=== PATIENT | male | born 1940 | race Caucasian/White ===

== ENCOUNTER 2018-05-20 11:01 | Emergency (ER) | payer MEDICARE ==
[2018-05-20 11:53] LABS: #Eosinphils 0.1 thou/uL (0.0-0.7); #Lymphocytes 1.3 thou/uL (1.20-3.40); #Monocytes 0.8 thou/uL (0.11-0.59); #Neutrophils 5.9 thou/uL (1.40-6.50); %Basophils 0.3 % (0.0-1.0); %Eosinophils 0.9 % (0.0-10.0); %Neutrophils 72.8 % (42.0-75.0); Hemoglobin 14.2 g/dL (14.0-18.0); Mean Corpuscular HGB CONC 32.5 g/dL (32.0-36.0); Mean Corpuscular Hemoglobin 29.6 pg (27.0-31.0); Mean Platelet Volume 9.6 fL (7.4-10.4); Platelet Count 180 thou/uL (130-400); RBC Distribution Width 12.3 % (11.5-14.5); Red Blood Cell (RBC) Count 4.79 mill/uL (4.70-6.10); White Blood Cell (WBC) Count 8.2 thou/uL (4.8-10.8)
[2018-05-20 12:26] LABS: ALT (SGPT) 14 U/L (8-55); AST (SGOT) 17 U/L (5-34); Albumin 4.1 g/dL (3.4-4.8); Alkaline Phosphatase 100 U/L (40-150); Anion Gap 13 mmol/L (10-20); BUN (Urea Nitrogen) 34 mg/dL (8.4-25.7); Bilirubin, Total 0.4 mg/dL (0.2-1.2); CK (CPK) 62 U/L (30-200); Calc. Creatinine Clearance 0 mL/min (70-130); Calcium 9.1 mg/dL (7.8-10.44); Carbon Dioxide 27 mmol/L (23-31); Chloride 105 mmol/L (98-107); Estimated GFR-MDRD 30; Globulin 2.9 g/dL (2.4-3.5); Glucose 330 mg/dL (83-110); Lipase 18 U/L (8-78); Potassium 3.9 mmol/L (3.5-5.1); Sodium 141 mmol/L (136-145)
--- NOTE | 2018-05-20 12:27 | CT ---
CT BRAIN WITHOUT CONTRAST: Date: 05/20/18 HISTORY: Falls, weakness. FINDINGS: There are changes of cortical atrophy and chronic small vessel ischemic disease. The ventricular size is appropriate and the basilar cisterns are patent. No evidence of acute infarct, hemorrhage, midlin e shift, or abnormal extra-axial fluid collections are seen. The bony calvarium is intact. The visual ized paranasal sinuses and mastoid air cells are well aerated. IMPRESSION: No CT evidence of acute intracranial process. POS: [facility]
--- NOTE | 2018-05-20 13:28 | RAD ---
PORTABLE CHEST: HISTORY: Dyspnea. COMPARISON: 11/08/2013 FINDINGS: Heart size is within normal limits. There are postop sternotomy changes. An internal defibrillator device is present. The lungs show some more chronic change. No signs of overt failure. IMPRESSION: No acute findings. POS: [facility]
[2018-05-20 14:21] LABS: Bilirubin Small (Negative); Blood, Urine Negative (Negative); Clarity CLEAR (Clear); Glucose, Urine (Dipstick) 500 mg/dL (Negative); Leukocyte Negative (Negative); Nitrite Negative (Negative); Protein, Urine (Dipstick) Negative (Neg-Trace); Specific Gravity, Urine 1.024 (1.002-1.036); Urobilinogen 0.2 mg/dL (0.2-1.0); pH, Urine 5.5 (5.0-9.0)
[2018-05-20 14:55] LABS: Bacteria/HPF None Seen HPF (None Seen); Hyaline Casts/LPF NONE SEEN LPF (0-3 Hyaline); RBC/HPF None Seen HPF (0-3); Squamous Epithelial 0-3 HPF (0-3); WBC/HPF 0-3 HPF (0-3)
== END 2018-05-20 13:52 | disposition home or self-care (01) ==
LOC: ERS 11:01
DX: R63.5 Abnormal weight gain (principal); N40.0 Benign prostatic hyperplasia without lower urinary tract symptoms; J44.9 Chronic obstructive pulmonary disease, unspecified; I25.2 Old myocardial infarction; E11.9 Type 2 diabetes mellitus without complications; I11.0 Hypertensive heart disease with heart failure; I50.9 Heart failure, unspecified; F32.9 Major depressive disorder, single episode, unspecified; Z87.891 Personal history of nicotine dependence; Z79.899 Other long term (current) drug therapy; Z79.84 Long term (current) use of oral hypoglycemic drugs; Z79.82 Long term (current) use of aspirin
CPT/HCPCS: 36415; 70450; 71045; 80053; 81001; 82550; 83690; 83880; 84484; 85025; 93005

== ENCOUNTER 2018-12-31 09:28 | Outpatient (CLI) | payer MEDICARE ==
--- NOTE | 2018-12-31 09:50 | RAD ---
EXAM: PA and lateral chest: INDICATIONS: Heart failure COMPARISON: 05/20/2018 FINDINGS: Lung santiago appear clear of infiltrate. No evidence of vascular congestion. Heart size with in normal range. Postop sternotomy change. AICD leads unchanged. Mild interstitial prominence in the lower lobes appears chronic. Osseous structures show degenerative spine change and degenerative c hange at both shoulders. IMPRESSION: No acute finding or significant interval change.
== END 2018-12-31 09:29 | disposition home or self-care (01) ==
LOC: RAD 09:28
PROVIDERS: ATTEND Nurse Practitioner Family
DX: I50.22 Chronic systolic (congestive) heart failure (principal)
CPT/HCPCS: 36415; 71046; 80048; 83880

== ENCOUNTER 2020-03-25 22:16 | Inpatient (IN) | payer MEDICARE ==
[2020-03-26] MEDS ORDERED: Gabapentin 300 MG CAP PO SCH (03:00)
[2020-03-26 03:33] LABS: #Lymphocytes 1.6 thou/uL (1.20-3.40); #Monocytes 1.4 thou/uL (0.11-0.59); #Neutrophils 11.9 thou/uL (1.40-6.50); %Basophils 0.1 % (0.0-1.0); %Eosinophils 0.2 % (0.0-10.0); %Lymphocytes 10.9 % (21.0-51.0); %Monocytes 9.4 % (0.0-10.0); %Neutrophils 79.3 % (42.0-75.0); Hemoglobin 10.9 g/dL (14.0-18.0); Mean Corpuscular HGB CONC 33.6 g/dL (32.0-36.0); Mean Corpuscular Hemoglobin 29.4 pg (27.0-31.0); Mean Corpuscular Volume 87.6 fL (78.0-98.0); Mean Platelet Volume 9.1 fL (7.4-10.4); Platelet Count 228 thou/uL (130-400); RBC Distribution Width 13.3 % (11.5-14.5); Red Blood Cell (RBC) Count 3.72 mill/uL (4.70-6.10); White Blood Cell (WBC) Count 15.1 thou/uL (4.8-10.8)
[2020-03-26 03:50] LABS: ALT (SGPT) 7 U/L (8-55); AST (SGOT) 15 U/L (5-34); Albumin 3.6 g/dL (3.4-4.8); Alkaline Phosphatase 96 U/L (40-110); Anion Gap 17 mmol/L (10-20); BUN (Urea Nitrogen) 34 mg/dL (8.4-25.7); Bilirubin, Total 0.4 mg/dL (0.2-1.2); Calc. Creatinine Clearance 0 mL/min (70-130); Calcium 8.4 mg/dL (7.8-10.44); Carbon Dioxide 23 mmol/L (23-31); Chloride 106 mmol/L (98-107); Globulin 2.7 g/dL (2.4-3.5); Glucose 157 mg/dL (83-110); Potassium 3.7 mmol/L (3.5-5.1); Protein, Total 6.3 g/dL (5.8-8.1); Sodium 142 mmol/L (136-145)
[2020-03-26] MEDS ORDERED: Ondansetron PF 4 MG/2 ML Vial IVP PRN (10:30)
[2020-03-26] MEDS ORDERED: Acetaminophen 500 MG TAB ONE (12:26)
[2020-03-26] MEDS ORDERED: Acetaminophen 325 MG TAB ONE (12:26)
--- NOTE | 2020-03-26 13:02 | PDOC.HHP ---
Hospitalist HPI - History of Present Illness CHF exacerbation, new found lung mass, PNA that didn't improve History of Present Illness: Mr. Hardy is an 79 year old man that was transferred from [facility] to [facility] ER for CHF exacerbation, pneumonia, and a new right sided pulmonary mass. He was transferred to [facility] because his meter setter - Dr. Brewster - is here. He has a past medical history of hypertension, diabetes mellitus type 2, coronary artery disease, hyperlipidemia, ulcerative colitis, CHF, and CABG x 3. He presented due to worsening dyspnea over the past few days. He requires 3 L home oxygen via nasal cannula for COPD. CT scan at [facility] showed a large right hilar mass measuring 4.1 x 4.2 cm that extends into the right sided superior mediastinum to a soft tissue mass measuring 3.6x4.5 cm. He has a smoking history of 150 pack years but quit 20 years ago and denies any family history of lung or colorectal cancer. He also denies any current alcohol use but was a heavy drinker in the past. He reports weight loss over the past several months and has had a decreased appetite. He was diagnosed with pneumonia one month ago and states that it never improved. No hemoptysis. no family history of lung or colon cancer ED Course: Mr. Hardy had a CT chest at [facility] showing a right hilar mass (4.1x4.2) extending into the right superior mediastium (3.6x4.5). He was also given gentle IV hydration, IV antibiotics, and nitroglyecerin paste at [facility]. [facility] ER ordered BNP, EKG, CBC, CMP, and Troponins. He was also given Gabapentin and st arted on his home oxygen level of 3 L cannula. He is currently comfortable at that oxygen level with O2 sat >95%. Disposition: telemetry Hospitalist ROS - Review of Systems Constitutional: reports: weakness. denies: fever Respiratory: reports: cough, shortness of breath. denies: hemoptysis, pleuritic pain, wheezing Cardiovascular: denies: chest pain, palpitations Gastrointestinal: denies: nausea, vomiting, abdominal pain, diarrhea, constipation Genitourinary: denies: dysuria Hospitalist History - Past Medical History Source: patient, family Cardiac: reports: CAD, CHF, HTN, ND, Hyperlipidemia Pulmonary: reports: congestive heart failure, COPD, emphysema, heart attack, high cholesterol, hypertension, pneumonia Gastrointestinal: reports: Irritable bowel disease Heme/Onc: reports: no pertinent history Psych: reports: Depression Musculoskeletal: reports: Osteoarthritis Endocrine: reports: Diabetes - Past Surgical History Past Surgical History: reports: CABG, Total Knee Replacement (left knee), Other (Back surgery) Other Surgical History: Pacemaker/ defibrilator placement - Family History Family History: reports: cancer, cardiac disorder - Social History Smoking Status: Former smoker (quit 20 years ago) Tobacco Type: cigarettes Alcohol: reports: None (quit 20 years ago) Living Situation: With Family Activity level: independent ambulation Other Social History: requires O2 at home - Exam General Appearance: NAD, awake alert Eye: PERRL, anicteric sclera ENT: normocephalic atraumatic Neck: supple Heart: RRR Respiratory: CTAB Gastrointestinal: soft, non-tender, non-distended, normal bowel sounds Psychiatric: normal affect, A&O x 3 Hospitalist Results - Labs Result Diagrams: 03/26/20 03:20 03/26/20 03:20 Lab results: WBC 15.1 thou/uL (4.8-10.8) H 03/26/20 03:20 Hgb 10.9 g/dL (14.0-18.0) L 03/26/20 03:20 Hct 32.6 % (42.0-52.0) L 03/26/20 03:20 MCV 87.6 fL (78.0-98.0) 03/26/20 03:20 Plt Count 228 thou/uL (130-400) 03/26/20 03:20 Neutrophils % 79.3 % (42.0-75.0) H 03/26/20 03:20 Sodium 142 mmol/L (136-145) 03/26/20 03:20 Potassium 3.7 mmol/L (3.5-5.1) 03/26/20 03:20 Chloride 106 mmol/L (98-107) 03/26/20 03:20 Carbon Dioxide 23 mmol/L (23-31) 03/26/20 03:20 BUN 34 mg/dL (8.4-25.7) H 03/26/20 03:20 Creatinine 1.79 mg/dL (0.7-1.3) H 03/26/20 03:20 Glucose 157 mg/dL (83-110) H 03/26/20 03:20 Calcium 8.4 mg/dL (7.8-10.44) 03/26/20 03:20 Total Bilirubin 0.4 mg/dL (0.2-1.2) 03/26/20 03:20 AST 15 U/L (5-34) 03/26/20 03:20 ALT 7 U/L (8-55) L 03/26/20 03:20 Alkaline Phosphatase 96 U/L (40-110) 03/26/20 03:20 Troponin I 0.023 ng/mL (< 0.028) 03/26/20 03:20 B-Natriuretic Peptide 118.8 pg/mL (0-100) H 03/26/20 03:20 Serum Total Protein 6.3 g/dL (5.8-8.1) 03/26/20 03:20 Albumin 3.6 g/dL (3.4-4.8) 03/26/20 03:20 - EKG Interpretation EKG: Shows sinus rhythm with possible 1st degree AV block Hospitalist H&P A/P - Plan Plan: CHF exacerbation -That is post AICD implantation remotely - admit to telemetry - obtain echocardiogram - trend troponins - consulted cardiology -Follow-up daily BMP strict in and output and weight daily -IV diuresis as renal function allows Monitor kidney disease stage III -Caution with IV diuresis -expect creatinine to trend up. Pulmonary mass, weight loss and the less p.o. intake -She has a remote history of tobacco abuse and he quit smoking 20 years ago -Right hilar mediastinal mass - consulted pulmonology DM2 -Hold glipizide, his creatinine around 1.7. Initiated sliding scale protocol along with his NPH home regimen. Diabetic neuropathy - Gabapentin PRN for neuropathic pain COPD - keep on 3 L nasal cannula and adjust as needed -Bronchodilators as needed Community after pneumonia -COVID test pending -Started him on ceftriaxone and Zithromax. -Mucinex as needed. -
[2020-03-26] MEDS ORDERED: Dextrose 50% Abboject 50 ML SYRINGE SLOW IVP PRN (13:47)
[2020-03-26] MEDS ORDERED: Furosemide 40 MG/4 ML VIAL ONE (16:52)
[2020-03-26] MEDS ORDERED: cefTRIAXone\\ROCEPHIN 1 GM VIAL ONE (16:52)
[2020-03-26] MEDS ORDERED: Potassium Chloride 20 MEQ TAB ONE (16:52)
[2020-03-26] MEDS ORDERED: Aspirin Chewable 81 MG TAB ONE (16:52)
[2020-03-26] MEDS ORDERED: Azithromycin 250 MG TAB ONE (16:52)
[2020-03-26] MEDS: cefTRIAXone\\ROCEPHIN 1 GM in Sodium Chloride 0.9% 100 ML IVPB SCH (17:00)
[2020-03-26] MEDS: Aspirin 81 mg Enteric Coated Tablet PO SCH (17:00)
[2020-03-26] MEDS: Potassium Chloride 10 MEQ TAB PO SCH (17:00)
[2020-03-26] MEDS: Azithromycin 250 MG TAB PO SCH (17:00)
[2020-03-26] MEDS: Furosemide 20 MG/2 ML VIAL SLOW IVP SCH (17:00)
[2020-03-26] MEDS: rOPINIRole HCl 0.25 MG TAB PO SCH (17:20)
[2020-03-26] MEDS: Tamsulosin HCl 0.4 MG CAP PO SCH (17:20)
[2020-03-26] MEDS: Dicyclomine 10 MG CAP PO SCH ×2 (17:20→22:26)
[2020-03-26] MEDS: Gabapentin 300 MG CAP PO SCH (17:22)
[2020-03-26] MEDS: guaiFENesin ER 600 MG TAB PO SCH (17:22)
[2020-03-26] MEDS: Rosuvastatin 20 MG TAB PO SCH (17:24)
[2020-03-26] MEDS: NPH, Human Insulin Isophane 300 UNIT/3 ML VIAL SC SCH (22:26)
[2020-03-26] MEDS: Mometasone 200 MCG/Formoterol 5 MCG 120 PUFF INHALER INH SCH (23:37)
[2020-03-27] MEDS: Melatonin 3 MG TAB PO PRN ×2 (00:52→22:53)
[2020-03-27] MEDS: traMADol HCl 50 MG TAB PO PRN ×3 (00:52→22:53)
[2020-03-27 01:31] VITALS: BMI 25.8
[2020-03-27 04:02] LABS: #Eosinphils 0.3 thou/uL (0.0-0.7); #Lymphocytes 1.7 thou/uL (1.20-3.40); #Monocytes 0.9 thou/uL (0.11-0.59); #Neutrophils 5.4 thou/uL (1.40-6.50); %Basophils 0.3 % (0.0-1.0); %Eosinophils 3.1 % (0.0-10.0); %Monocytes 10.8 % (0.0-10.0); %Neutrophils 64.9 % (42.0-75.0); Hemoglobin 10.9 g/dL (14.0-18.0); Mean Corpuscular Hemoglobin 29.1 pg (27.0-31.0); Mean Corpuscular Volume 88.1 fL (78.0-98.0); Mean Platelet Volume 9.2 fL (7.4-10.4); Platelet Count 214 thou/uL (130-400); RBC Distribution Width 13.2 % (11.5-14.5); Red Blood Cell (RBC) Count 3.75 mill/uL (4.70-6.10); White Blood Cell (WBC) Count 8.3 thou/uL (4.8-10.8)
[2020-03-27 04:24] LABS: Band 1 % (5-11); Eosinophils 5 % (0-10); Hemoglobin 10.7 g/dL (14.0-18.0); Lymphocytes 26 % (21-51); MDiff Complete? YES; Mean Corpuscular HGB CONC 33.1 g/dL (32.0-36.0); Mean Corpuscular Hemoglobin 29.1 pg (27.0-31.0); Mean Corpuscular Volume 87.8 fL (78.0-98.0); Mean Platelet Volume 9.5 fL (7.4-10.4); Monocytes 8 % (0-10); Neutrophil 60 % (42-75); Platelet Count 218 thou/uL (130-400); RBC Distribution Width 13.3 % (11.5-14.5); Red Blood Cell (RBC) Count 3.68 mill/uL (4.70-6.10); White Blood Cell (WBC) Count 8.3 thou/uL (4.8-10.8)
[2020-03-27 04:30] LABS: Anion Gap 16 mmol/L (10-20); BUN (Urea Nitrogen) 33 mg/dL (8.4-25.7); Calc. Creatinine Clearance 45 mL/min (70-130); Calcium 8.3 mg/dL (7.8-10.44); Carbon Dioxide 25 mmol/L (23-31); Chloride 106 mmol/L (98-107); Glucose 186 mg/dL (83-110); Potassium 3.5 mmol/L (3.5-5.1); Sodium 143 mmol/L (136-145)
[2020-03-27] MEDS: Furosemide 20 MG/2 ML VIAL SLOW IVP SCH (05:19)
[2020-03-27] MEDS: Acetaminophen 325 MG TAB PO PRN ×2 (05:27→12:46)
[2020-03-27] MEDS: Mometasone 200 MCG/Formoterol 5 MCG 120 PUFF INHALER INH SCH ×3 (07:06→23:28)
[2020-03-27] MEDS ORDERED: glipiZIDE 10 MG TAB PO SCH (07:30)
[2020-03-27] MEDS: Aspirin 81 mg Enteric Coated Tablet PO SCH (08:56)
[2020-03-27] MEDS: Potassium Chloride 10 MEQ TAB PO SCH (08:56)
[2020-03-27] MEDS: Gabapentin 300 MG CAP PO SCH ×2 (08:56→21:54)
[2020-03-27] MEDS: Azithromycin 250 MG TAB PO SCH (08:57)
[2020-03-27] MEDS: guaiFENesin ER 600 MG TAB PO SCH ×2 (08:57→21:55)
[2020-03-27] MEDS: Tamsulosin HCl 0.4 MG CAP PO SCH (08:58)
[2020-03-27] MEDS: rOPINIRole HCl 0.25 MG TAB PO SCH (08:58)
[2020-03-27] MEDS ORDERED: NPH, Human Insulin Isophane 300 UNIT/3 ML VIAL SC SCH (09:00)
[2020-03-27] MEDS ORDERED: Torsemide 20 MG TAB PO SCH (09:00)
[2020-03-27] MEDS: NPH, Human Insulin Isophane 300 UNIT/3 ML VIAL SC SCH ×2 (09:01→21:58)
[2020-03-27] MEDS: Dicyclomine 10 MG CAP PO SCH ×4 (09:01→21:54)
--- NOTE | 2020-03-27 10:52 | CON ---
DATE OF CONSULTATION: HISTORY OF PRESENT ILLNESS: The patient is an 79-year-old gentleman who presents for evaluation of dyspnea. The patient has a long history of coronary artery disease. In 2000, he underwent coronary artery bypass graft surgery. In 2010, he had a followup catheterization, which revealed to have a patent graft to the left circumflex and right coronary artery. He had mild disease in the left anterior descending artery. The patient has done well until he recently developed pneumonia. He reports that for the past few days, he has noticed marked increase in dyspnea. He denied any chest discomfort. PAST MEDICAL HISTORY: 1. Coronary artery disease. 2. Hypertension. 3. Dyslipidemia. 4. COPD. 5. History of a defibrillator. PAST SURGICAL HISTORY: Coronary bypass surgery, knee surgery, back surgery. ALLERGIES: NO KNOWN DRUG ALLERGIES. MEDICATIONS: 1. Pepcid 20 b.i.d. 2. Mobic 15 daily. 3. Trazodone 50 at bedtime. 4. Glipizide 10 q.a.m. 5. Potassium 10 daily. 6. Prilosec 40 daily. 7. Lasix. 8. Torsemide 40 daily. FAMILY HISTORY: Positive family history of coronary artery disease. PHYSICAL EXAMINATION: GENERAL: Well-developed gentleman, in no acute distress. VITAL SIGNS: Blood pressure 93/55. NECK: No jugular venous distention. LUNGS: Coarse breath sounds bilateral. HEART: Regular rate and rhythm. Normal S1 and S2. ABDOMEN: Mildly distended. EXTREMITIES: Show no edema. VASCULAR: Radial pulses 2+. LABORATORY DATA: Sodium 143, potassium 3.5, chloride 106, bicarb 25, BUN 33, creatinine 1.6, glucose 186. White blood cell count 8.8, hemoglobin 10.9, hematocrit 33.1, his platelets are 214. BNP level was 118. EKG revealed normal sinus rhythm, first-degree AV block, Q-waves suggestive of previous inferior infarct. IMPRESSION: 1. Dyspnea. 2. Lung mass. 3. History of coronary bypass surgery. 4. History of ischemic cardiomyopathy. 5. History of automatic implantable cardioverter-defibrillator placement. 6. Renal insufficiency. 7. Diabetes mellitus. This gentleman presents with dyspnea. His BNP is only mildly elevated. His dyspnea is most likely secondary to his COPD and lung mass. He will undergo pulmonary evaluation. From a cardiac standpoint, I would discontinue diuresing him with Lasix. We will follow this patient with you through his hospitalization. Job ID: [id number] MTDD
--- NOTE | 2020-03-27 11:39 | PDOC.HOSPP ---
- Subjective Encounter Date: 03/27/20 Encounter Time: 11:10 Subjective: Patient is resting. He says that he has no complaints "so far so good" - Objective Vital Signs & Weight: Vital Signs (12 hours) Temp Pulse Resp BP Pulse Ox 03/27/20 08:00 96.2 F L 83 17 93/55 L 95 03/27/20 07:07 80 16 97 03/27/20 07:06 80 16 97 03/27/20 05:06 90 L 03/27/20 04:59 97.7 F 64 18 120/64 95 03/26/20 23:42 18 96 03/26/20 23:37 16 95 Weight Weight 196 lb 1 oz I&O: 03/26/20 03/27/20 03/28/20 06:59 06:59 06:59 Intake Total 480 Output Total 1160 Balance -680 Result Diagrams: 03/27/20 03:28 03/27/20 03:28 Additional Labs: Accuchecks 03/27/20 03/27/20 03/26/20 11:16 00:16 21:38 POC Glucose 212 H 277 H 237 H 03/26/20 03/26/20 13:47 11:28 POC Glucose 173 H 120 H Hospitalist ROS - Medication Medications: Active Medications Generic Name Dose Route Start Last Admin Trade Name Tray PRN Reason Stop Dose Admin Acetaminophen 650 mg 03/26/20 10:30 03/27/20 05:27 Acetaminophen 325 Mg Tab PO 650 mg Q4H PRN Administration Headache/Fever/Mild Pain (1-3) Albuterol/Ipratropium 3 ml 03/27/20 07:00 03/27/20 07:07 Ipratropium/Albuterol Sulfate 3 Ml Neb NEB 3 ml [id number] RAMIRO Administration Aspirin 81 mg 03/26/20 16:30 03/27/20 08:56 Aspirin 81 Mg Enteric Coated Tablet PO 81 mg DAILY RAMIRO Administration Azithromycin 500 mg 03/26/20 16:30 03/27/20 08:57 Azithromycin 250 Mg Tab PO 03/29/20 09:01 500 mg DAILY RAMIRO Administration Dicyclomine HCl 10 mg 03/26/20 17:00 03/27/20 09:01 Dicyclomine 10 Mg Cap PO 10 mg QID RAMIRO Administration Gabapentin 300 mg 03/26/20 21:00 03/27/20 08:56 Gabapentin 300 Mg Cap PO 300 mg BID RAMIRO Administration Guaifenesin 600 mg 03/26/20 21:00 03/27/20 08:57 Guaifenesin Er 600 Mg Tab PO 600 mg Q12HR RAMIRO Administration Ceftriaxone Sodium 1 gm/ 100 mls @ 200 mls/hr 03/26/20 14:00 03/26/20 17:00 Sodium Chloride IVPB 100 mls Q24HR RAMIRO Administration Insulin Human NPH 30 unit 03/26/20 21:00 03/27/20 09:01 Nph, Human Insulin Isophane 300 Unit/3 Ml Vial SC 30 unit BID RAMIRO Administration Melatonin 3 mg 03/27/20 00:33 03/27/20 00:52 Melatonin 3 Mg Tab PO 3 mg HSPRN PRN Administration Insomnia Mometasone Furoate/Formoterol Fumar 1 puff 03/26/20 18:30 03/27/20 07:06 Mometasone 200 Mcg/Formoterol 5 Mcg 120 Puff Inhaler INH 1 puff BID-RT RAMIRO Administration Pantoprazole Sodium 40 mg 03/26/20 16:30 03/27/20 08:58 Pantoprazole 40 Mg Tab PO 40 mg DAILY RAMIRO Administration Potassium Chloride 10 meq 03/26/20 16:30 03/27/20 08:56 Potassium Chloride 10 Meq Tab PO 10 meq QAM-WM RAMIRO Administration Ropinirole HCl 0.25 mg 03/26/20 16:15 03/27/20 08:58 Ropinirole Hcl 0.25 Mg Tab PO 0.25 mg DAILY RAMIRO Administration Rosuvastatin Calcium 20 mg 03/26/20 21:00 03/26/20 17:24 Rosuvastatin 20 Mg Tab PO 20 mg HS RAMIRO Administration Sodium Chloride 10 ml 03/26/20 21:00 03/27/20 08:58 Flush - Normal Saline 10 Ml Syringe IVF 10 ml Q12HR RAMIRO Administration Tamsulosin HCl 0.4 mg 03/26/20 16:15 03/27/20 08:58 Tamsulosin Hcl 0.4 Mg Cap PO 0.4 mg DAILY RAMIRO Administration Tramadol HCl 50 mg 03/26/20 13:41 03/27/20 08:57 Tramadol Hcl 50 Mg Tab PO 50 mg Q6H PRN Administration Pain - Exam General Appearance: NAD, awake alert Eye: PERRL, anicteric sclera ENT: normocephalic atraumatic Neck: supple Heart: RRR, normal peripheral pulses Respiratory: CTAB, normal chest expansion Gastrointestinal: soft, normal bowel sounds Neurological: cranial nerve grossly intact, no focal deficits Psychiatric: A&O x 3 Hosp A/P - Plan Suspected acute on chronic systolic CHF exacerbation History of ischemic cardiomyopathy History of coronary artery disease status post CABG -status post AICD implantation remotely -IV diuretics has been discontinued- -echo is pending Chronic kidney disease stage III -Caution with IV diuresis -expect creatinine to trend up. Pulmonary mass, weight loss and the less p.o. intake COPD -he has a remote history of tobacco abuse and he quit smoking 20 years ago -Right hilar mediastinal mass - consulted pulmonology DM2 -Hold glipizide, his creatinine around 1.7. Initiated sliding scale protocol along with his NPH home regimen. Diabetic neuropathy - Gabapentin PRN for neuropathic pain COPD - keep on 3 L nasal cannula and adjust as needed -Bronchodilators as needed Community acquired pneumonia, was treated recently but patient still has complaints of cough and shortness of breath -COVID test pending---I do not see any result so I reordered it again. -he does not look like ongoing pneumonia [no fever or high white], CT chest done at [facility] shows right hilar mass; will get an chest x-ray today. -If no infiltrate with recent history of pneumonia, then will discontinue his antibiotics that started empirically. -Mucinex as needed.
--- NOTE | 2020-03-27 12:53 | PDOC.BPN ---
- Brief Progress Note Patient had a Covid test done 2 days prior to T[facility] and it was negative.
--- NOTE | 2020-03-27 13:26 | CON ---
DATE OF CONSULTATION: 03/27/2020 REASON FOR CONSULTATION: Right-sided mediastinal mass. HISTORY OF PRESENT ILLNESS: The patient is a pleasant 79-year-old male, who has been a patient of Dr. Baker in the past. He is from [place]. He says he was admitted at [facility] in [place] about a month ago with pneumonia. He has had some shortness of breath and desaturation. He did not feel better after that hospitalization. He subsequently re-presented there [address] of the chest demonstrating large right hilar mass extending up to right side of superior mediastinum. He does have a distant history of smoking approximately 150 pack-year, but quit 20 years ago. He endorses weight loss, but denies any hemoptysis. He is on O2 at home for COPD. PAST MEDICAL HISTORY: 1. Chronic obstructive pulmonary disease. 2. Congestive heart failure. 3. Coronary artery disease. 4. Hyperlipidemia. 5. Pneumonia. 6. Hypertension. 7. Irritable bowel disease. 8. Depression. 9. Osteoarthritis. 10. Diabetes mellitus. PAST SURGICAL HISTORY: 1. Coronary artery bypass grafting surgery. 2. Total knee replacement. 3. Back surgery. 4. Pacemaker/defibrillator placement. FAMILY MEDICAL HISTORY: Remarkable for cancer. SOCIAL HISTORY: Quit smoking 20 years ago. Does not consume alcohol. Lives at home with his . MEDICATIONS: Prior to admission; 1. Famotidine. 2. Mobic. 3. Gabapentin. 4. Torsemide. 5. Bentyl. 6. Trazodone. 7. Flomax. 8. Requip. 9. Potassium chloride. 10. Omeprazole. 11. NPH insulin. 12. Lovastatin. 13. Levocetirizine. 14. Guaifenesin. 15. Glipizide. 16. Diclofenac. 17. Carvedilol. 18. Symbicort. 19. Ecotrin. 20. DuoNeb. 21. Tramadol. Current inpatient medications reviewed, see chart. REVIEW OF SYSTEMS: See above history of present illness, otherwise review negative. PHYSICAL EXAMINATION: VITAL SIGNS: Temperature 97.8, pulse 99, respirations 20, O2 saturation 94% on 3 L, blood pressure 135/73. HEENT: Pupils are reactive. Sclerae are anicteric. Oropharynx is clear. NECK: He has a large palpable right supraclavicular lymph node medially. No thyromegaly. LUNGS: Clear to auscultation bilaterally. CARDIOVASCULAR: S1 and S2. Regular without audible murmur. ABDOMEN: Soft and nontender. No hepatosplenomegaly. EXTREMITIES: No clubbing, cyanosis, or edema. LABORATORY DATA: White blood cell count 8.3, hematocrit 33.1, and platelet count 214. Sodium 143, potassium 3.5, chloride 106, CO2 of 25, BUN 33, creatinine 1.6, glucose 186. His CT from [facility] was reviewed. It is available in the patient's chart. ASSESSMENT: 1. Large amount of lymphadenopathy in the right paratracheal and right hilar region. I am not sure whether or not this invades the lung properly or is extrinsic. Also, notable is a fairly profound right supraclavicular lymph node. 2. History of heart failure. 3. Hypoxemia. RECOMMENDATIONS: I will inform Dr. Baker of the patient's situation. I will let him decide how best to go about diagnosis. I think the choices are between doing a needle biopsy of the supraclavicular node, cervical mediastinal exploration, or bronchoscopy. He is at somewhat increased risk for bronchoscopy, given his underlying COPD and hypoxemia. Differential diagnosis in this case is lung cancer and lymphoma. I will keep him n.p.o. after midnight in case the procedure can be done tomorrow. Job ID: [id number]
[2020-03-27] MEDS: cefTRIAXone\\ROCEPHIN 1 GM in Sodium Chloride 0.9% 100 ML IVPB SCH (15:55)
[2020-03-27] MEDS: HumaLOG 300 UNITS/3 ML VIAL SC PRN (17:18)
--- NOTE | 2020-03-27 18:32 | RAD ---
Exam: Chest one view HISTORY:Evaluate for infiltrate Comparison: 05/20/2018 FINDINGS: Cardiac silhouette:Normal cardiac silhouette. Stable sternotomy wires and left-sided defibrillator. Aorta: Atherosclerotic and mildly elongated Pulmonary vessels: Normal Costophrenic angles: Small right pleural effusion LUNGS: Scattered interstitial opacities in the right lower lobe infiltrate, superimposed upon chronic change. Pneumothorax: None Osseous abnormalities: Degenerative change involving the right minimal joint space. IMPRESSION: 1. Scattered interstitial opacities in the right lower lobe possibly due to infiltrate
[2020-03-27] MEDS: Rosuvastatin 20 MG TAB PO SCH (21:54)
[2020-03-28 04:00] LABS: Anion Gap 12 mmol/L (10-20); BUN (Urea Nitrogen) 27 mg/dL (8.4-25.7); Calc. Creatinine Clearance 46 mL/min (70-130); Carbon Dioxide 25 mmol/L (23-31); Chloride 106 mmol/L (98-107); Potassium 3.3 mmol/L (3.5-5.1); Sodium 140 mmol/L (136-145)
[2020-03-28 04:01] LABS: Calcium 8.1 mg/dL (7.8-10.44); Glucose 121 mg/dL (83-110)
[2020-03-28] MEDS: Mometasone 200 MCG/Formoterol 5 MCG 120 PUFF INHALER INH SCH ×2 (07:06→19:42)
[2020-03-28] MEDS: Azithromycin 250 MG TAB PO SCH (09:38)
[2020-03-28] MEDS: Acetaminophen 325 MG TAB PO PRN ×2 (09:39→15:15)
[2020-03-28] MEDS: Gabapentin 300 MG CAP PO SCH ×2 (09:40→20:54)
[2020-03-28] MEDS: Dexamethasone 4 mg/ml Vial SLOW IVP SCH ×3 (09:42→20:54)
[2020-03-28] MEDS ORDERED: Fentanyl 100 MCG/2 ML VIAL ONE (10:09)
[2020-03-28] MEDS ORDERED: PROPOFOL 200 MG/20 ML VIAL ONE (10:43)
[2020-03-28] MEDS ORDERED: Ketorolac Tromethamine 30 MG/ML VIAL ONE (10:43)
[2020-03-28] MEDS ORDERED: Dexamethasone 20 MG/5 ML VIAL ONE (10:43)
[2020-03-28] MEDS ORDERED: Rocuronium Bromide 10 MG/ML (10ML VIAL) ONE (10:43)
[2020-03-28] MEDS ORDERED: Ondansetron PF 4 MG/2 ML Vial ONE (10:43)
[2020-03-28] MEDS ORDERED: PHENYLEPHRINE-NS 100 MCG/ML 10 ML SYRINGE ONE (10:43)
[2020-03-28] MEDS ORDERED: Glycopyrrolate 0.2 MG/ML 5 ML SYRINGE ONE (10:43)
[2020-03-28] MEDS ORDERED: Lidocaine 1% PF 5 ML VIAL ONE (10:43)
[2020-03-28] MEDS: Potassium Chloride 10 MEQ TAB PO SCH ×2 (11:00→15:10)
[2020-03-28] MEDS: Aspirin 81 mg Enteric Coated Tablet PO SCH ×2 (11:00→15:11)
[2020-03-28] MEDS: rOPINIRole HCl 0.25 MG TAB PO SCH ×2 (11:01→15:11)
[2020-03-28] MEDS: guaiFENesin ER 600 MG TAB PO SCH ×3 (11:01→20:54)
[2020-03-28] MEDS: Dicyclomine 10 MG CAP PO SCH ×4 (11:01→20:54)
[2020-03-28] MEDS: NPH, Human Insulin Isophane 300 UNIT/3 ML VIAL SC SCH ×2 (11:01→21:06)
[2020-03-28] MEDS: Tamsulosin HCl 0.4 MG CAP PO SCH ×2 (11:02→15:11)
[2020-03-28] MEDS: Torsemide 20 MG TAB PO SCH ×2 (11:02→15:11)
[2020-03-28] MEDS ORDERED: Ondansetron HCl/PF 4 MG/2 ML Vial IVP PRN (11:11)
--- NOTE | 2020-03-28 11:23 | PRG ---
DATE OF SERVICE: 03/28/[address] showed a large hilar suprahilar mass with extension into the mediastinum. OBJECTIVE: GENERAL/VITAL SINGS: He said he is less short of breath this morning, though his pulse is 91, sats are 94% on 3 L, and blood pressure . CHEST: Decreased breath sounds. No wheezing. CARDIAC: Normal S1 and S2. No gallop. ABDOMEN: No mass. LABORATORY DATA: Creatinine 1.58. X-ray was not very impressive. IMPRESSION: 1. Chronic obstructive pulmonary disease. 2. Right hilar mass, probably small cell lung cancer. 3. Azotemia. PLAN: We will try and get surgery to get a lymph node biopsy. Confirm the diagnosis. I have reviewed the CT of his chest from [place], more than likely most of his masses are extrinsic. We will follow. Start low-dose Decadron. Job ID: [id number]
[2020-03-28] MEDS ORDERED: EPINEPHrine 1 MG/ML AMP ONE (11:53)
[2020-03-28] MEDS ORDERED: Bupivacaine PF 0.5% 30 ML VIAL ONE (11:53)
[2020-03-28] MEDS: cefTRIAXone\\ROCEPHIN 1 GM in Sodium Chloride 0.9% 100 ML IVPB SCH (15:10)
--- NOTE | 2020-03-28 17:23 | PDOC.HOSPP ---
- Subjective Subjective: still dyspneic with exertion. O2 at baseline 3L - Objective Vital Signs & Weight: Vital Signs (12 hours) Temp Pulse Resp BP BP Pulse Ox 03/28/20 13:40 97.2 F L 92 17 125/65 95 03/28/20 09:00 96.4 F L 101 H 17 127/64 94 L 03/28/20 08:00 94 L 03/28/20 07:09 97 03/28/20 07:08 91 16 03/28/20 07:06 91 16 97 Weight Weight 192 lb 3.2 oz I&O: 03/27/20 03/28/20 03/29/20 06:59 06:59 06:59 Intake Total 1530 Output Total 1860 Balance -330 Result Diagrams: 03/27/20 03:28 03/28/20 03:21 Additional Labs: Accuchecks 03/28/20 03/28/20 03/27/20 16:29 06:10 19:47 POC Glucose 208 H 89 150 H 03/27/20 03/26/20 03/26/20 06:38 16:33 10:45 POC Glucose 108 H 165 H 30 L* Radiology Reviewed by me: Yes EKG Reviewed by me: Yes Hospitalist ROS - Medication Medications: Active Medications Generic Name Dose Route Start Last Admin Trade Name Freq PRN Reason Stop Dose Admin Acetaminophen 650 mg 03/26/20 10:30 03/28/20 15:15 Acetaminophen 325 Mg Tab PO 650 mg Q4H PRN Administration Headache/Fever/Mild Pain (1-3) Albuterol/Ipratropium 3 ml 03/27/20 07:00 03/28/20 13:05 Ipratropium/Albuterol Sulfate 3 Ml Neb NEB Not Given [id number] RAMIRO Aspirin 81 mg 03/26/20 16:30 03/28/20 15:11 Aspirin 81 Mg Enteric Coated Tablet PO 81 mg DAILY RAMIRO Administration Azithromycin 500 mg 03/26/20 16:30 03/28/20 09:38 Azithromycin 250 Mg Tab PO 03/29/20 09:01 500 mg DAILY RAMIRO Administration Dexamethasone 4 mg 03/28/20 09:00 03/28/20 15:10 Dexamethasone 4 Mg/Ml Vial SLOW IVP 03/30/20 09:01 4 mg TID RAMIRO Administration Dicyclomine HCl 10 mg 03/26/20 17:00 03/28/20 15:10 Dicyclomine 10 Mg Cap PO Not Given QID RAMIRO Gabapentin 300 mg 03/26/20 21:00 03/28/20 09:40 Gabapentin 300 Mg Cap PO 300 mg BID RAMIRO Administration Guaifenesin 600 mg 03/26/20 21:00 03/28/20 15:11 Guaifenesin Er 600 Mg Tab PO 600 mg Q12HR RAMIRO Administration Ceftriaxone Sodium 1 gm/ 100 mls @ 200 mls/hr 03/26/20 14:00 03/28/20 15:10 Sodium Chloride IVPB 100 mls Q24HR RAMIRO Administration Insulin Human Lispro 0 units 03/26/20 13:47 03/27/20 17:18 Humalog 300 Units/3 Ml Vial SC 6 unit .MODERATE SLIDING SC PRN Administration Moderate Correctional Scale Insulin Human NPH 30 unit 03/26/20 21:00 03/28/20 11:01 Nph, Human Insulin Isophane 300 Unit/3 Ml Vial SC Not Given BID RAMIRO Melatonin 3 mg 03/27/20 00:33 03/27/20 22:53 Melatonin 3 Mg Tab PO 3 mg HSPRN PRN Administration Insomnia Mometasone Furoate/Formoterol Fumar 1 puff 03/26/20 18:30 03/28/20 07:06 Mometasone 200 Mcg/Formoterol 5 Mcg 120 Puff Inhaler INH 1 puff BID-RT RAMIRO Administration Pantoprazole Sodium 40 mg 03/26/20 16:30 03/28/20 09:39 Pantoprazole 40 Mg Tab PO 40 mg DAILY RAMIRO Administration Potassium Chloride 10 meq 03/26/20 16:30 03/28/20 15:10 Potassium Chloride 10 Meq Tab PO 10 meq QAM-WM RAMIRO Administration Ropinirole HCl 0.25 mg 03/26/20 16:15 03/28/20 15:11 Ropinirole Hcl 0.25 Mg Tab PO 0.25 mg DAILY RAMIRO Administration Rosuvastatin Calcium 20 mg 03/26/20 21:00 03/27/20 21:54 Rosuvastatin 20 Mg Tab PO 20 mg HS RAMIRO Administration Sodium Chloride 10 ml 03/26/20 21:00 03/28/20 09:39 Flush - Normal Saline 10 Ml Syringe IVF 10 ml Q12HR RAMIRO Administration Tamsulosin HCl 0.4 mg 03/26/20 16:15 03/28/20 15:11 Tamsulosin Hcl 0.4 Mg Cap PO 0.4 mg DAILY RAMIRO Administration Torsemide 40 mg 03/28/20 09:00 03/28/20 15:11 Torsemide 20 Mg Tab PO 40 mg DAILY RAMIRO Administration Tramadol HCl 50 mg 03/26/20 13:41 03/27/20 22:53 Tramadol Hcl 50 Mg Tab PO 50 mg Q6H PRN Administration Pain - Exam General Appearance: NAD Eye: PERRL ENT: normocephalic atraumatic Neck: supple Heart: RRR Respiratory: CTAB, no wheezes Gastrointestinal: soft Extremities: no cyanosis Skin: normal turgor Neurological: cranial nerve grossly intact Musculoskeletal: normal tone Psychiatric: normal affect, normal behavior, A&O x 3 Hosp A/P - Plan Pulmonary mass with lymphadenopathy concerning for malignancy --s/p needle biopsy - Path pending --Pul started on Decadron. Appreciate input --cont empiric IV abx for presumed possible PNA Acute on chronic systolic CHF --euvolemic, cont home dose Torsemide History of coronary artery disease status post CABG --EF50-60%, cont home meds Chronic kidney disease stage III --Cr improved. avoid nephrotoxic agent . DM2 -Hold glipizide, his creatinine around 1.7. Initiated sliding scale protocol along with his NPH home regimen. Diabetic neuropathy - Gabapentin PRN for neuropathic pain COPD home O2 depending --keep on 3 L nasal cannula and adjust as needed --Bronchodilators as needed
--- NOTE | 2020-03-28 18:27 | OP ---
DATE OF PROCEDURE: 03/28/2020 PREOPERATIVE DIAGNOSIS: Lung mass with mediastinal adenopathy. POSTOPERATIVE DIAGNOSIS: Lung mass with mediastinal adenopathy. PROCEDURE PERFORMED: Cervical mediastinoscopy with biopsy of level 4R lymph node. ANESTHESIA: General endotracheal - Dr. Isis Daugherty. ESTIMATED BLOOD LOSS: Less than 50. SPECIMEN: Level 4R lymph node sent for routine pathologic exam along with flow cytometry. DESCRIPTION OF PROCEDURE: After operative consent was obtained, the patient was brought to the operating room, placed in supine position on the operating table. Appropriate central line and monitors were placed, and general endotracheal anesthesia was induced. Neck was extended. Skin incision was made two fingerbreadths above the sternocleidomastoid. Dissection through the platysma and down through the anterior tracheal fascia was obtained with electrocautery. Blunt dissection was used to enter the mediastinum. Trachea was followed inferiorly with mediastinal scope until we encountered a large hard lymph node. Multiple biopsies of lymph nodes were taken and sent for exam. These returned as adequate for exam with some frozen section revealing a leaning toward carcinoma. Hemostasis was ensured. Mediastinoscope was removed and platysma was closed with running 2-0 Vicryl suture. Skin was closed with a running 4-0 Vicryl subcuticular stitch and Dermabond was applied to skin. The patient tolerated the procedure well, was awakened, extubated, and transferred to recovery room in stable condition. Job ID: [id number]
--- NOTE | 2020-03-28 18:58 | CON ---
DATE OF CONSULTATION: HISTORY OF PRESENT ILLNESS: This is an 79-year-old gentleman recently hospitalized for pneumonia with development of a right-sided mass since admission. He has a remote history of coronary artery bypass grafting about 20 years ago by myself. He also has a history of diabetes mellitus, hypertension, ulcerative colitis, and COPD for which he wears oxygen at home. Review of his chest x-ray reveals a right hilar mass with multiple enlarged lymph nodes on CT scan extending along the right tracheal and pretracheal area. PHYSICAL EXAMINATION: He is alert and cooperative gentleman, in no distress. He has palpable adenopathy in the right supraclavicular area that is also pulsatile probably being related to adenopathy in the region of his subclavian artery. His chest has well healed incision. His lungs are clear. His heart has a soft systolic murmur. His extremities are without edema. PAST SURGICAL HISTORY: Includes CABG, left knee replacement, and back surgery as well as defibrillator placement. SOCIAL HISTORY: He has not smoked in 20 years. Accompanied by family member today. PLAN: At this time is either supraclavicular node biopsy on the right or for definitive diagnosis. Questions have been answered and informed consent obtained. Job ID: [id number]
[2020-03-28] MEDS: Rosuvastatin 20 MG TAB PO SCH (20:54)
[2020-03-28] MEDS: traMADol HCl 50 MG TAB PO PRN (20:55)
[2020-03-28] MEDS: HumaLOG 300 UNITS/3 ML VIAL SC PRN (20:57)
[2020-03-29 04:42] LABS: Anion Gap 16 mmol/L (10-20); BUN (Urea Nitrogen) 31 mg/dL (8.4-25.7); Calc. Creatinine Clearance 42 mL/min (70-130); Calcium 8.4 mg/dL (7.8-10.44); Carbon Dioxide 24 mmol/L (23-31); Chloride 104 mmol/L (98-107); Glucose 269 mg/dL (83-110); Potassium 4.1 mmol/L (3.5-5.1); Sodium 140 mmol/L (136-145)
[2020-03-29] MEDS: HumaLOG 300 UNITS/3 ML VIAL SC PRN ×3 (06:14→16:52)
[2020-03-29] MEDS: Mometasone 200 MCG/Formoterol 5 MCG 120 PUFF INHALER INH SCH ×2 (07:18→19:07)
[2020-03-29] MEDS: Azithromycin 250 MG TAB PO SCH (09:09)
[2020-03-29] MEDS: Torsemide 20 MG TAB PO SCH (09:10)
[2020-03-29] MEDS: Dexamethasone 4 mg/ml Vial SLOW IVP SCH ×3 (09:10→21:01)
[2020-03-29] MEDS: guaiFENesin ER 600 MG TAB PO SCH ×2 (09:10→20:58)
[2020-03-29] MEDS: Aspirin 81 mg Enteric Coated Tablet PO SCH (09:10)
[2020-03-29] MEDS: Potassium Chloride 10 MEQ TAB PO SCH (09:10)
[2020-03-29] MEDS: Gabapentin 300 MG CAP PO SCH ×2 (09:10→21:00)
[2020-03-29] MEDS: Dicyclomine 10 MG CAP PO SCH ×4 (09:11→21:11)
[2020-03-29] MEDS: NPH, Human Insulin Isophane 300 UNIT/3 ML VIAL SC SCH ×2 (09:11→21:01)
[2020-03-29] MEDS: Tamsulosin HCl 0.4 MG CAP PO SCH (09:11)
[2020-03-29] MEDS: rOPINIRole HCl 0.25 MG TAB PO SCH (09:11)
[2020-03-29] MEDS: Acetaminophen 325 MG TAB PO PRN (09:17)
--- NOTE | 2020-03-29 10:32 | PRG ---
DATE OF SERVICE: 03/29/2020 SUBJECTIVE: Raleigh Hardy this morning is awake, alert, responsive, short of breath on minimal exertion. OBJECTIVE: VITAL SIGNS: Temperature 98, pulse 82, saturations are 92 on 3 L, blood pressure 100/67. CHEST: No wheezing. No crackles. CARDIAC: Normal S1, normal S2. No gallops. ABDOMEN: No masses LABORATORY DATA: Creatinine is 1.71. ASSESSMENT: Chronic obstructive pulmonary disease, lung mass. PLAN: We are in the process of trying to get final path report. It looks like it is a lymphoma versus primary lung cancer. We are going to consult Oncology. Continue Decadron for another 24 hours. We will follow. Job ID: [id number]
--- NOTE | 2020-03-29 17:06 | PDOC.HOSPP ---
- Subjective Subjective: c/o sob with exertion. path pending - Objective Vital Signs & Weight: Vital Signs (12 hours) Temp Pulse Resp BP BP Pulse Ox 03/29/20 15:23 98.6 F 95 18 110/55 L 92 L 03/29/20 13:01 102 H 20 90 L 03/29/20 12:00 98.1 F 90 16 108/56 L 92 L 03/29/20 11:17 97.4 F L 92 124/59 L 92 L 03/29/20 07:27 92 L 03/29/20 07:24 98.6 F 82 17 106/67 92 L 03/29/20 07:21 92 L 03/29/20 07:20 92 16 92 L 03/29/20 07:18 88 16 92 L Weight Weight 195 lb 9.6 oz I&O: 03/28/20 03/29/20 03/30/20 06:59 06:59 06:59 Intake Total 1530 1260 720 Output Total 1860 1250 1200 Balance -330 10 -480 Result Diagrams: 03/27/20 03:28 03/29/20 04:02 Additional Labs: Accuchecks 03/29/20 03/29/20 03/29/20 16:39 11:16 06:12 POC Glucose 225 H 219 H 246 H 03/28/20 20:54 POC Glucose 378 H Radiology Reviewed by me: Yes EKG Reviewed by me: Yes Hospitalist ROS - Medication Medications: Active Medications Generic Name Dose Route Start Last Admin Trade Name Freq PRN Reason Stop Dose Admin Acetaminophen 650 mg 03/26/20 10:30 03/29/20 09:17 Acetaminophen 325 Mg Tab PO 650 mg Q4H PRN Administration Headache/Fever/Mild Pain (1-3) Albuterol/Ipratropium 3 ml 03/27/20 07:00 03/29/20 13:01 Ipratropium/Albuterol Sulfate 3 Ml Neb NEB 3 ml [id number] RAMIRO Administration Aspirin 81 mg 03/26/20 16:30 03/29/20 09:10 Aspirin 81 Mg Enteric Coated Tablet PO 81 mg DAILY RAMIRO Administration Dexamethasone 4 mg 03/28/20 09:00 03/29/20 15:17 Dexamethasone 4 Mg/Ml Vial SLOW IVP 03/30/20 09:01 4 mg TID RAMIRO Administration Dicyclomine HCl 10 mg 12/05/20 17:00 03/29/20 16:52 Dicyclomine 10 Mg Cap PO 10 mg QID RAMIRO Administration Gabapentin 300 mg 03/26/20 21:00 03/29/20 09:10 Gabapentin 300 Mg Cap PO 300 mg BID RAMIRO Administration Guaifenesin 600 mg 03/26/20 21:00 03/29/20 09:10 Guaifenesin Er 600 Mg Tab PO 600 mg Q12HR RAMIRO Administration Insulin Human Lispro 0 units 03/26/20 13:47 03/29/20 16:52 Humalog 300 Units/3 Ml Vial SC 4 unit .MODERATE SLIDING SC PRN Administration Moderate Correctional Scale Insulin Human NPH 30 unit 03/26/20 21:00 03/29/20 09:11 Nph, Human Insulin Isophane 300 Unit/3 Ml Vial SC 30 unit BID RAMIRO Administration Melatonin 3 mg 03/27/20 00:33 03/27/20 22:53 Melatonin 3 Mg Tab PO 3 mg HSPRN PRN Administration Insomnia Pantoprazole Sodium 40 mg 03/26/20 16:30 03/29/20 09:10 Pantoprazole 40 Mg Tab PO 40 mg DAILY RAMIRO Administration Potassium Chloride 10 meq 03/26/20 16:30 03/29/20 09:10 Potassium Chloride 10 Meq Tab PO 10 meq QAM-WM RAMIRO Administration Ropinirole HCl 0.25 mg 03/26/20 16:15 03/29/20 09:11 Ropinirole Hcl 0.25 Mg Tab PO 0.25 mg DAILY RAMIRO Administration Rosuvastatin Calcium 20 mg 03/26/20 21:00 03/28/20 20:54 Rosuvastatin 20 Mg Tab PO 20 mg HS RAMIRO Administration Sodium Chloride 10 ml 03/26/20 21:00 03/29/20 09:12 Flush - Normal Saline 10 Ml Syringe IVF 10 ml Q12HR RAMIRO Administration Tamsulosin HCl 0.4 mg 03/26/20 16:15 03/29/20 09:11 Tamsulosin Hcl 0.4 Mg Cap PO 0.4 mg DAILY RAMIRO Administration Torsemide 40 mg 03/28/20 09:00 03/29/20 09:10 Torsemide 20 Mg Tab PO 40 mg DAILY RAMIRO Administration Tramadol HCl 50 mg 03/26/20 13:41 03/28/20 20:55 Tramadol Hcl 50 Mg Tab PO 50 mg Q6H PRN Administration Pain - Exam General Appearance: NAD Eye: PERRL ENT: normocephalic atraumatic Neck: supple Heart: RRR Respiratory: CTAB, no wheezes Gastrointestinal: soft, non-tender Extremities: no cyanosis, no clubbing, no edema Skin: normal turgor Neurological: cranial nerve grossly intact Musculoskeletal: normal tone, normal strength Psychiatric: normal affect, normal behavior, A&O x 3 Hosp A/P - Plan Pulmonary mass with lymphadenopathy concerning for malignancy --s/p needle biopsy - Path pending --Pul started on Decadron. Appreciate input --cont empiric IV abx for presumed possible PNA --PT eval. Oncology has been consulted by pul Acute on chronic systolic CHF --euvolemic, cont home dose Torsemide History of coronary artery disease status post CABG --EF50-60%, cont home meds Chronic kidney disease stage III --Cr improved. avoid nephrotoxic agent . DM2 -Hold glipizide, his creatinine around 1.7. Initiated sliding scale protocol along with his NPH home regimen. Diabetic neuropathy - Gabapentin PRN for neuropathic pain COPD home O2 depending --keep on 3 L nasal cannula and adjust as needed --Bronchodilators as needed
[2020-03-29] MEDS: traMADol HCl 50 MG TAB PO PRN (20:58)
[2020-03-29] MEDS: Rosuvastatin 20 MG TAB PO SCH (20:58)
[2020-03-30 05:00] LABS: Anion Gap 15 mmol/L (10-20); BUN (Urea Nitrogen) 44 mg/dL (8.4-25.7); Calc. Creatinine Clearance 39 mL/min (70-130); Calcium 8.6 mg/dL (7.8-10.44); Carbon Dioxide 24 mmol/L (23-31); Chloride 103 mmol/L (98-107); Glucose 301 mg/dL (83-110); Potassium 4.3 mmol/L (3.5-5.1); Sodium 138 mmol/L (136-145)
[2020-03-30] MEDS: HumaLOG 300 UNITS/3 ML VIAL SC PRN ×2 (06:27→12:35)
--- NOTE | 2020-03-30 06:31 | CON ---
DATE OF CONSULTATION: REASON FOR CONSULT: Lung mass. HISTORY OF PRESENT ILLNESS: Mr. Hardy is a pleasant 79-year-old gentleman with past medical history of congestive heart failure, COPD, and recent pneumonia. He was transferred from [facility] to ours for right-sided pulmonary mass. He presented to their ER after worsening shortness of breath over the last several days. He denies any hemoptysis. A CT scan at [facility] showed a large right hilar mass measuring 4.1 x 4.2 cm that extended to the right-sided superior mediastinum. There were tracheal and paratracheal lymph nodes. He was seen by Pulmonary and Thoracic Surgery, and had a level 4R lymph node, cervical mediastinoscopy. Frozen section was leaning toward carcinoma versus lymphoma. The patient has a [id number] history of smoking, quit over 20 years ago. He denies any significant weight loss over the last several months. He has an ECOG of 3 and requires a walker and continuous O2. He admits to frequent headaches, but no recent falls. No blurred vision. He was diagnosed with pneumonia approximately a month ago, was given antibiotics with no significant improvement. He has been admitted and given steroids and antibiotics. PAST MEDICAL HISTORY: 1. Diabetes mellitus 2. 2. Hypertension. 3. Ulcerative colitis. 4. COPD. PAST SURGICAL HISTORY: 1. CABG. 2. Defibrillator placement. 3. Back surgery. ALLERGIES: NO KNOWN DRUG ALLERGIES. HOME MEDICATIONS: 1. Bentyl. 2. Coreg. 3. Diclofenac. 4. Ecotrin. 5. Flomax. 6. Gabapentin. 7. Glipizide. 8. Insulin. 9. Potassium. 10. Lovastatin. 11. Mobic. 12. Prilosec. 13. Requip. 14. Torsemide. 15. Tramadol. 16. Trazodone. FAMILY HISTORY: Sister from breast cancer. SOCIAL HISTORY: , lives with his spouse in a trailer in [place]. Again, remote [id number] history of smoking. No alcohol or illicit drug use. REVIEW OF SYSTEMS: A 12-point review of systems is negative except for noted in HPI. PHYSICAL EXAMINATION: VITAL SIGNS: Temperature is 97.4, pulse is 102, respiratory rate 20, blood pressure is 124/59. He is 90% on 3 L. GENERAL: Chronically ill-appearing male, in no acute distress. HEENT: Normocephalic, atraumatic. Pupils are equal and reactive to light. NECK: Supple. CV: Regular rate and rhythm. He has 2/6 murmur. LUNGS: Clear anterior. ABDOMEN: Soft and nontender. Bowel sounds are positive. EXTREMITIES: No clubbing or cyanosis. SKIN: No rash. NEUROLOGICAL: Nonfocal. LYMPH: He has a palpable right supraclavicular lymph node. PERTINENT LABS AND X-RAYS: Hemoglobin 10.9, hematocrit 33.1, platelets 214,000, 65% neutrophils, 21% lymphocytes. Sodium 140, potassium 4.1, chloride 104, CO2 is 24, BUN is 31, creatinine 1.71, calcium 8.4, bilirubin 0.4, AST is 15, ALT 7, and alkaline phosphatase is 96. Troponin is 0.023. BNP is 118. Serum total protein 6.3, albumin 3.6, globulin 2.7. ASSESSMENT: 1. Right hilar mass with mediastinal lymphadenopathy. 2. History of chronic obstructive pulmonary disease, oxygen dependency. 3. Remote history of smoking. DISCUSSION: The patient has had level 4 lymph node biopsy, path is currently pending. It appears to be a carcinoma based on frozen section. We will await final pathology for recommendations regarding treatment options. We would like to get an MRI of the brain. Unfortunately, the patient had a pacemaker that has been placed almost 20 years ago. He will need a PET scan in the outpatient setting. We will return with further recommendations regarding treatment options once we receive final pathology. The patient can go home, to follow up in our clinic to discuss diagnosis at that time. Thank you for the consult. Job ID: [id number]
[2020-03-30] MEDS: Mometasone 200 MCG/Formoterol 5 MCG 120 PUFF INHALER INH SCH ×2 (06:50→18:06)
[2020-03-30] MEDS: guaiFENesin ER 600 MG TAB PO SCH ×2 (09:29→21:17)
[2020-03-30] MEDS: Potassium Chloride 10 MEQ TAB PO SCH (09:29)
[2020-03-30] MEDS: Tamsulosin HCl 0.4 MG CAP PO SCH (09:29)
[2020-03-30] MEDS: Acetaminophen 325 MG TAB PO PRN (09:29)
[2020-03-30] MEDS: rOPINIRole HCl 0.25 MG TAB PO SCH (09:29)
[2020-03-30] MEDS: Gabapentin 300 MG CAP PO SCH ×2 (09:29→21:17)
[2020-03-30] MEDS: Dexamethasone 4 mg/ml Vial SLOW IVP SCH (09:30)
[2020-03-30] MEDS: Dicyclomine 10 MG CAP PO SCH ×4 (09:30→21:17)
[2020-03-30] MEDS: Aspirin 81 mg Enteric Coated Tablet PO SCH (09:31)
[2020-03-30] MEDS: NPH, Human Insulin Isophane 300 UNIT/3 ML VIAL SC SCH ×2 (09:31→21:23)
--- NOTE | 2020-03-30 11:47 | PRG ---
DATE OF SERVICE: 03/30/2020 SUBJECTIVE: This morning, he is doing better, less short of breath. We are still awaiting path and lymph node biopsy. OBJECTIVE: VITAL SIGNS: Temperature 97.6, pulse 109, respiratory rate 18, saturations 94% on 3 L, blood pressure 144/65. CHEST: No wheezing. No crackles. CARDIAC: Normal S1 and S2. No gallops. ABDOMEN: No mass. LABORATORY DATA: Creatinine 1.9. IMPRESSION: Chronic obstructive pulmonary disease, lung mass, status post CME biopsy. Await path. Continue Dulera neb treatment. Supportive care. Once Oncology has seen the patient, the patient can be discharged home any time. Job ID: [id number] MTDD
--- NOTE | 2020-03-30 13:18 | PRG ---
DATE OF SERVICE: 03/30/2020 SUBJECTIVE: Mr. Hardy is doing well. Awaiting final pathology report from the biopsy. He says he is still short of breath with any type of exertion. No chest pain. OBJECTIVE: VITAL SIGNS: Blood pressure 140/60, pulse 100. LUNGS: Clear. CARDIAC: Normal S1. Normal S2. ABDOMEN: Soft, nontender. ASSESSMENT: 1. Congestive heart failure, systolic and diastolic mixed, appears compensated by the BNP. 2. Lung mass, being evaluated. PLAN: 1. We will have them interrogate the defibrillator, check the OptiVol to see what his fluid status is. 2. Continue torsemide. Job ID: [id number]
--- NOTE | 2020-03-30 17:25 | PDOC.HOSPP ---
- Subjective Subjective: doing ok, states O2 sat drop when ambulate. Cr up. will hold his torsemide for now, i think he is euvolemic at this point - Objective Vital Signs & Weight: Vital Signs (12 hours) Temp Pulse Resp BP Pulse Ox 03/30/20 13:10 100 20 90 L 03/30/20 12:00 97.0 F L 100 17 140/60 95 03/30/20 08:00 96.9 F L 103 H 18 141/65 H 94 L 03/30/20 06:52 86 16 95 03/30/20 06:50 86 16 95 Weight Weight 197 lb I&O: 03/29/20 03/30/20 03/31/20 06:59 06:59 06:59 Intake Total 1260 1120 Output Total 1250 2400 Balance 10 -1280 Result Diagrams: 03/27/20 03:28 03/30/20 04:09 Additional Labs: Accuchecks 03/30/20 03/30/20 03/29/20 11:03 05:54 20:38 POC Glucose 200 H 233 H 382 H 03/29/20 16:39 POC Glucose 225 H Hospitalist ROS - Medication Medications: Active Medications Generic Name Dose Route Start Last Admin Trade Name Freq PRN Reason Stop Dose Admin Acetaminophen 650 mg 03/26/20 10:30 03/30/20 09:29 Acetaminophen 325 Mg Tab PO 650 mg Q4H PRN Administration Headache/Fever/Mild Pain (1-3) Albuterol/Ipratropium 3 ml 03/27/20 07:00 03/30/20 13:10 Ipratropium/Albuterol Sulfate 3 Ml Neb NEB 3 ml [id number] RAMIRO Administration Aspirin 81 mg 03/26/20 16:30 03/30/20 09:31 Aspirin 81 Mg Enteric Coated Tablet PO 81 mg DAILY RAMIRO Administration Dicyclomine HCl 10 mg 03/26/20 17:00 03/30/20 12:35 Dicyclomine 10 Mg Cap PO 10 mg QID RAMIRO Administration Gabapentin 300 mg 03/26/20 21:00 12 09:29 Gabapentin 300 Mg Cap PO 300 mg BID RAMIRO Administration Guaifenesin 600 mg 03/26/20 21:00 03/30/20 09:29 Guaifenesin Er 600 Mg Tab PO 600 mg Q12HR RAMIRO Administration Insulin Human Lispro 0 units 03/26/20 13:47 03/30/20 12:35 Humalog 300 Units/3 Ml Vial SC 2 unit .MODERATE SLIDING SC PRN Administration Moderate Correctional Scale Insulin Human NPH 30 unit 03/26/20 21:00 03/30/20 09:31 Nph, Human Insulin Isophane 300 Unit/3 Ml Vial SC 30 unit BID RAMIRO Administration Melatonin 3 mg 03/27/20 00:33 03/27/20 22:53 Melatonin 3 Mg Tab PO 3 mg HSPRN PRN Administration Insomnia Mometasone Furoate/Formoterol Fumar 2 puff 03/29/20 18:30 03/30/20 06:50 Mometasone 200 Mcg/Formoterol 5 Mcg 120 Puff Inhaler INH 2 puff BID-RT RAMIRO Administration Pantoprazole Sodium 40 mg 03/26/20 16:30 03/30/20 09:28 Pantoprazole 40 Mg Tab PO 40 mg DAILY RAMIRO Administration Potassium Chloride 10 meq 03/26/20 16:30 03/30/20 09:29 Potassium Chloride 10 Meq Tab PO 10 meq QAM-WM RAMIRO Administration Ropinirole HCl 0.25 mg 03/26/20 16:15 03/30/20 09:29 Ropinirole Hcl 0.25 Mg Tab PO 0.25 mg DAILY RAMIRO Administration Rosuvastatin Calcium 20 mg 03/26/20 21:00 03/29/20 20:58 Rosuvastatin 20 Mg Tab PO 20 mg HS RAMIRO Administration Sodium Chloride 10 ml 03/26/20 21:00 03/30/20 09:31 Flush - Normal Saline 10 Ml Syringe IVF 10 ml Q12HR RAMIRO Administration Tamsulosin HCl 0.4 mg 03/26/20 16:15 03/30/20 09:29 Tamsulosin Hcl 0.4 Mg Cap PO 0.4 mg DAILY RAMIRO Administration Torsemide 40 mg 03/28/20 09:00 03/29/20 09:10 Torsemide 20 Mg Tab PO 40 mg DAILY RAMIRO Administration Tramadol HCl 50 mg 03/26/20 13:41 03/29/20 20:58 Tramadol Hcl 50 Mg Tab PO 50 mg Q6H PRN Administration Pain - Exam General Appearance: NAD Eye: PERRL ENT: normocephalic atraumatic Neck: supple Heart: RRR Respiratory: CTAB Gastrointestinal: soft, non-tender Extremities: no cyanosis Skin: normal turgor Neurological: cranial nerve grossly intact Musculoskeletal: normal tone Hosp A/P - Plan Pulmonary mass with lymphadenopathy concerning for malignancy --s/p needle biopsy - Path pending --Decadron was dc'd by pul --cont empiric IV abx for presumed possible PNA --cont supportive cares. Pending treatment option Acute on chronic systolic CHF --euvolemic, Torsemide, cr on hold d/t incr cr --follow BMP History of coronary artery disease status post CABG --EF50-60%, cont home meds Chronic kidney disease stage III --Cr improved. avoid nephrotoxic agent . DM2 -Hold glipizide, his creatinine around 1.7. Initiated sliding scale protocol along with his NPH home regimen. Diabetic neuropathy - Gabapentin PRN for neuropathic pain COPD home O2 depending 3L --keep on 3 L nasal cannula and adjust as needed --Bronchodilators as needed
[2020-03-30] MEDS: Rosuvastatin 20 MG TAB PO SCH (21:17)
[2020-03-30] MEDS: Senokot S 8.6-50 MG TAB PO PRN (21:18)
[2020-03-30] MEDS: traMADol HCl 50 MG TAB PO PRN (21:29)
[2020-03-31 05:24] LABS: Anion Gap 12 mmol/L (10-20); BUN (Urea Nitrogen) 40 mg/dL (8.4-25.7); Calc. Creatinine Clearance 49 mL/min (70-130); Calcium 8.4 mg/dL (7.8-10.44); Carbon Dioxide 26 mmol/L (23-31); Chloride 108 mmol/L (98-107); Glucose 146 mg/dL (83-110); Magnesium 2.4 mg/dL (1.6-2.6); Potassium 3.8 mmol/L (3.5-5.1); Sodium 142 mmol/L (136-145)
[2020-03-31] MEDS: Mometasone 200 MCG/Formoterol 5 MCG 120 PUFF INHALER INH SCH ×2 (07:46→17:33)
[2020-03-31] MEDS: Potassium Chloride 10 MEQ TAB PO SCH (08:45)
[2020-03-31] MEDS: Aspirin 81 mg Enteric Coated Tablet PO SCH (08:46)
[2020-03-31] MEDS: Dicyclomine 10 MG CAP PO SCH ×4 (08:47→21:49)
[2020-03-31] MEDS: Gabapentin 300 MG CAP PO SCH ×2 (08:47→21:48)
[2020-03-31] MEDS: guaiFENesin ER 600 MG TAB PO SCH ×2 (08:48→21:48)
[2020-03-31] MEDS: rOPINIRole HCl 0.25 MG TAB PO SCH (08:48)
[2020-03-31] MEDS: Tamsulosin HCl 0.4 MG CAP PO SCH (08:49)
[2020-03-31] MEDS: Senokot S 8.6-50 MG TAB PO PRN (08:49)
[2020-03-31] MEDS: Torsemide 20 MG TAB PO SCH (08:49)
[2020-03-31] MEDS: NPH, Human Insulin Isophane 300 UNIT/3 ML VIAL SC SCH ×2 (08:51→21:48)
--- NOTE | 2020-03-31 09:36 | PRG ---
DATE OF SERVICE: 03/31/2020 OBJECTIVE: VITAL SIGNS: This morning, his temperature 98, pulse 80, respirations 18, sats 95% on 3 L, and blood pressure 153/77. GENERAL: He denies any wheezing or coughing. CHEST: Decreased breath sounds. No wheezing. CARDIAC: Normal S1, S2. No gallops. ABDOMEN: No masses. LABORATORY DATA: Creatinine is 1.5. 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 2 CHF PLAN: Disposition as per Oncology,, discharge home any time. Follow up with Oncology on outpatient basis. Job ID: [id number] [facility]
--- NOTE | 2020-03-31 10:15 | PRG ---
DATE OF SERVICE: SUBJECTIVE: This morning, he is doing well, awake, alert, responsive. OBJECTIVE: VITAL SIGNS: Temperature 98, pulse 88, respiratory rate 18, sats 95% on 3 L, blood pressure 153/77. CHEST: No wheezing, no crackles. CARDIAC: Normal S1, S2. ABDOMEN: No masses. LABORATORY DATA: Creatinine 1.5. ASSESSMENT: Small cell metastatic carcinoma, chronic obstructive pulmonary disease, congestive heart failure. PLAN: Disposition as per Oncology. Continue neb treatments. We will follow. Job ID: [id number]
--- NOTE | 2020-03-31 10:15 | PDOC.MOPN ---
Interval History: Pt feeling ok today, SOB improved but not back to his baseline, though he is on his home level of O2, 3L. I discussed his dx of Small Cell lung cancer with him, and spoke to his on the phone. - Vital Signs Vital Signs: Vital Signs (12 hours) Temp Pulse Resp BP BP Pulse Ox 03/31/20 07:47 98.1 F 88 18 153/77 H 95 03/31/20 07:43 90 14 95 03/31/20 04:00 97.7 F 89 19 131/69 94 L Weight Weight 192 lb 8 oz - Physical Exam General: Alert, Oriented x3, Cooperative Lungs: Normal air movement, Other (on nasal cannula, not in respiratory distress) Abdomen: Soft Neurological: Cranial nerves 3-12 NL Psych/Mental Status: Mood NL - Labs Result Diagrams: 03/27/20 03:28 03/31/20 04:18 Lab results: Laboratory Results - last 24 hr 03/31/20 05:48: POC Glucose 140 H 03/31/20 04:18: Sodium 142, Potassium 3.8, Chloride 108 H, Carbon Dioxide 26, Anion Gap 12, BUN 40 H, Creatinine 1.51 H, Estimated GFR (MDRD) 45, Glucose 146 H, Calcium 8.4, Magnesium 2.4 03/30/20 20:51: POC Glucose 178 H 03/30/20 17:01: POC Glucose 149 H 03/30/20 11:03: POC Glucose 200 H 03/28/20 12:15: Flow Cytometry Interp - Pathology Pathology: Small Cell Lung Cancer A/P - Problem (1) Small cell lung cancer Current Visit: Yes Code(s): C34.90 - MALIGNANT NEOPLASM OF UNSP PART OF UNSP BRONCHUS OR LUNG Status: Acute - Plan Plan: Small Cell Lung Cancer -- unknown stage, only had noncon CT-chest at [facility] but based on that scan may have Limited Stage which would be potentially curable recommend start Carboplatin + VP16 inpatient Will send for CT-CAP and CT-Head with contrast and hydrate with IVF prior and afterward (cannot have MRI-brain due to pacemaker/AICD) PET as outpatient if limited stage Mediport by Dr. Juares
[2020-03-31] MEDS ORDERED: Sodium Chloride 0.9% 500 ML IV SCH (10:30)
[2020-03-31] MEDS: HumaLOG 300 UNITS/3 ML VIAL SC PRN ×2 (11:30→17:54)
--- NOTE | 2020-03-31 15:29 | PDOC.HOSPP ---
- Subjective Subjective: His biopsy came back positive for small cell lung cancer. Patient met with the oncologist and discussed with the plan, and further staging work-up. He will be transferred to oncology unit today. He denies any chest pain - Objective Vital Signs & Weight: Vital Signs (12 hours) Temp Pulse Resp BP BP BP Pulse Ox 03/31/20 13:54 93 L 03/31/20 13:51 102 H 22 H 93 L 03/31/20 11:08 97.7 F 100 18 134/66 95 03/31/20 07:47 98.1 F 88 18 153/77 H 95 03/31/20 07:43 90 14 95 03/31/20 04:00 97.7 F 89 19 131/69 94 L Weight Weight 192 lb 8 oz I&O: 03/30/20 03/31/20 04/01/20 06:59 06:59 06:59 Intake Total 1120 1270 Output Total 2400 1300 Balance -1280 -30 Result Diagrams: 03/27/20 03:28 03/31/20 04:18 Additional Labs: Accuchecks 03/31/20 03/31/20 03/30/20 11:23 05:48 20:51 POC Glucose 250 H 140 H 178 H 03/30/20 17:01 POC Glucose 149 H Radiology Reviewed by me: Yes EKG Reviewed by me: Yes Hospitalist ROS - Medication Medications: Active Medications Generic Name Dose Route Start Last Admin Trade Name Freq PRN Reason Stop Dose Admin Acetaminophen 650 mg 03/26/20 10:30 03/30/20 09:29 Acetaminophen 325 Mg Tab PO 650 mg Q4H PRN Administration Headache/Fever/Mild Pain (1-3) Albuterol/Ipratropium 3 ml 03/27/20 07:00 03/31/20 13:51 Ipratropium/Albuterol Sulfate 3 Ml Neb NEB 3 ml [id number] RAMIRO Administration Aspirin 81 mg 03/26/20 16:30 03/31/20 08:46 Aspirin 81 Mg Enteric Coated Tablet PO 81 mg DAILY RAMIRO Administration Dicyclomine HCl 10 mg 03/26/20 17:00 03/31/20 12:01 Dicyclomine 10 Mg Cap PO 10 mg QID RAMIRO Administration Gabapentin 300 mg 03/26/20 21:00 03/31/20 08:47 Gabapentin 300 Mg Cap PO 300 mg BID RAMIRO Administration Guaifenesin 600 mg 03/26/20 21:00 03/31/20 08:48 Guaifenesin Er 600 Mg Tab PO 600 mg Q12HR RAMIRO Administration Insulin Human Lispro 0 units 03/26/20 13:47 03/31/20 11:30 Humalog 300 Units/3 Ml Vial SC 4 unit .MODERATE SLIDING SC PRN Administration Moderate Correctional Scale Insulin Human NPH 30 unit 03/26/20 21:00 03/31/20 08:51 Nph, Human Insulin Isophane 300 Unit/3 Ml Vial SC 30 unit BID RAMIRO Administration Melatonin 3 mg 03/27/20 00:33 03/27/20 22:53 Melatonin 3 Mg Tab PO 3 mg HSPRN PRN Administration Insomnia Mometasone Furoate/Formoterol Fumar 2 puff 03/29/20 18:30 03/31/20 07:46 Mometasone 200 Mcg/Formoterol 5 Mcg 120 Puff Inhaler INH 2 puff BID-RT RAMIRO Administration Pantoprazole Sodium 40 mg 03/26/20 16:30 03/31/20 08:48 Pantoprazole 40 Mg Tab PO 40 mg DAILY RAMIRO Administration Potassium Chloride 10 meq 03/26/20 16:30 03/31/20 08:45 Potassium Chloride 10 Meq Tab PO 10 meq QAM-WM RAMIRO Administration Ropinirole HCl 0.25 mg 03/26/20 16:15 03/31/20 08:48 Ropinirole Hcl 0.25 Mg Tab PO 0.25 mg DAILY RAMIRO Administration Rosuvastatin Calcium 20 mg 03/26/20 21:00 03/30/20 21:17 Rosuvastatin 20 Mg Tab PO 20 mg HS RAMIRO Administration Senna/Docusate Sodium 2 tab 03/26/20 10:30 03/31/20 08:49 Senokot S 8.6-50 Mg Tab PO 2 tab BID PRN Administration Constipation Sodium Chloride 10 ml 03/26/20 21:00 03/31/20 08:48 Flush - Normal Saline 10 Ml Syringe IVF 10 ml Q12HR RAMIRO Administration Tamsulosin HCl 0.4 mg 03/26/20 16:15 03/31/20 08:49 Tamsulosin Hcl 0.4 Mg Cap PO 0.4 mg DAILY RAMIRO Administration Torsemide 40 mg 03/28/20 09:00 03/31/20 08:49 Torsemide 20 Mg Tab PO 40 mg DAILY RAMIRO Administration Tramadol HCl 50 mg 03/26/20 13:41 03/30/20 21:29 Tramadol Hcl 50 Mg Tab PO 50 mg Q6H PRN Administration Pain - Exam General Appearance: NAD Eye: PERRL ENT: normocephalic atraumatic Neck: supple Heart: RRR Respiratory: CTAB Gastrointestinal: soft, non-tender Extremities: no cyanosis Skin: normal turgor Neurological: cranial nerve grossly intact Musculoskeletal: normal tone Psychiatric: normal affect, normal behavior, A&O x 3 Hosp A/P - Plan Small cell lung cancer --cont staging w/u and further treatment as per oncology Pulmonary mass with lymphadenopathy concerning for malignancy --s/p needle biopsy - Small cell carcinoma Acute on chronic systolic CHF --euvolemic, Torsemide, cr on hold d/t incr cr --follow BMP History of coronary artery disease status post CABG --EF50-60%, cont home meds Chronic kidney disease stage III --Cr improved. avoid nephrotoxic agent . DM2 -Hold glipizide, his creatinine around 1.7. Initiated sliding scale protocol along with his NPH home regimen. Diabetic neuropathy - Gabapentin PRN for neuropathic pain COPD home O2 depending 3L --keep on 3 L nasal cannula and adjust as needed --Bronchodilators as needed
--- NOTE | 2020-03-31 15:33 | CT ---
EXAM: CT chest, abdomen, and pelvis with IV contrast: HISTORY: Staging for small cell lung cancer. COMPARISON: CT abdomen and pelvis on 03/17/2008. FINDINGS: CT THORAX: Lungs: There are mild chronic interstitial lung changes with linear densities primarily in the periph eral aspect of the lungs bilaterally. Emphysematous changes are seen within the upper lobes with prominent bullous emphysematous changes in the superior aspect of the upper lobes and at each lung ap ex. There are calcifications seen in the upper lobes bilaterally likely attributable to prior granulomatous disease. A 3 mm noncalcified pulmonary nodule seen in the lateral aspect of the right u pper lobe The large airways appear patent without obvious filling defect. Pleura: Small right pleural effusion is present. Lymph nodes: Multiple enlarged mediastinal lymph nodes are present. Largest conglomeration of lymph n odes is seen in a lower right paratracheal location and adjacent to the right mainstem bronchus measuring approximately 4.8 cm x 4.6 cm in axial dimensions (area of soft tissue density does extend inferiorly and surrounds the right main pulmonary artery and also extends into the subcarinal region. A superior right paramediastinal masslike density also likely representing conglomeration of lymph nodes is seen which measures 3.3 cm AP x5.7 cm transverse. This is limited due to artifact from dense contrast within the veins as well as AICD leads. Additional enlarged lymph nodes are seen in the mediastinum including a right paratracheal lymph node measuring 2.2 cm. There is an enlarged right infraclavicular lymph node present measuring 3 cm in short axis dimension. The largest area of soft tissue density likely due to conglomeration of lymph nodes within right paratracheal region extends inferiorly to surround the right main pulmonary artery with more distal portion of this area of soft tissue density demonstrate lower attenuation which could be related to necrosis. Mediastinum: The left subclavian AICD device is noted in place. Postoperative changes related to medi an sternotomy are present. Vascular calcifications are seen in the coronary arteries as well as involving the thoracic aorta. Chest wall: No abnormalities CT ABDOMEN AND PELVIS: Liver: Within normal limits. Gallbladder: Within normal limits. \ Pancreas: Within normal limits. Spleen:Splenic granulomata present. Adrenal glands: Within normal limits. Kidneys: Multiple hypodense bilateral exophytic lesions are seen involving each kidney which have inc reased in number as well as size compared to study in 2008 are most compatible with multiple bilateral renal cysts largest in the inferior pole right kidney measuring 5.5 cm. No enhancing renal lesion is seen. Urinary Bladder: The urinary bladder is unremarkable. Reproductive organs: Within normal limits for patient's age. Bowel: Evidence of colonic diverticulosis. Loops of small bowel are normal in caliber. Adenopathy:No lymphadenopathy within the abdomen or pelvis. Peritoneum: No free fluid or fluid collection is seen. No free intraperitoneal gas is identified. Abdominal wall: There is incomplete imaging of an increased density masslike area in the subcutaneous soft tissues medial aspect lower right gluteal region measuring 5.9 cm AP x3.2 cm transverse. The most inferior extent of this masslike density is not imaged on this exam. Vessels: Atherosclerotic vascular disease and eccentric atherosclerotic plaque in the abdominal aorta and involving the iliac arteries. An infrarenal abdominal aortic aneurysm is present measuring 3.7 cm in AP dimensions. This previously measured 3.5 cm on study in 2008. Osseous structures: Degenerative changes thoracic and lumbar spine. There are postoperative changes l ower lumbar spine with posterior rods and bipedicular screws transfixing the L4-5 and L5-S1 levels. Grade 1 anterolisthesis of L4 on L5 is seen. Neural stimulator device is seen posterior to the lower lumbar spine. Defect in the posterior right iliac bone is likely due to bone harvest site. There is bilateral glenohumeral osteoarthropathy. No suspicious lytic or sclerotic osseous lesions are identif ied. IMPRESSION: 1. Incomplete imaging of an increased density masslike structure in the subcutaneous soft tissues inv olving the adipose tissues at the medial and inferior aspect of the right gluteal region. Exact etiology is uncertain. This could be related to an area of scarring, but clinical correlation is sugg ested as other lesions are not excluded. 2. Mediastinal, right hilar, and right infraclavicular lymphadenopathy with large mass seen in the ri ght paratracheal region and extending inferiorly and appears partially necrotic along the inferior extent. The right paramediastinal soft tissue masslike density/lymphadenopathy does result in mass ef fect and narrowing of the right main pulmonary artery. 3. Right pleural effusion. 4. Chronic lung changes with findings suggestive of COPD and mild chronic interstitial lung changes. 5. Nonspecific 3 mm right upper lobe pulmonary nodule. 6. Abdominal aortic aneurysm.
--- NOTE | 2020-03-31 15:55 | NM ---
WHOLE BODY BONE SCAN: HISTORY: History of small cell lung cancer RADIOPHARMACEUTICAL: 20.8 mCi technetium 99m-MDP injected intravenously COMPARISON:CT the chest, abdomen and pelvis dated March 31, 2020 and left ankle radiograph dated 2015 and left foot radiograph dated December 13, 2018 CORRELATION: None FINDINGS: There is moderate to prominent activity involving the right glenohumeral joint and proximal right hum erus some which can be explained by advanced glenohumeral osteoarthrosis. Small punctate focus of activity seen near the region of the right greater tuberosity. This could also be degenerative in lashanda ure; however, a focal metastatic lesion is not excluded. There is prominent activity within the distal left tibia that is not fully explained on the comparison radiographs as osteoarthrosis of the tibiotalar joint. There is scattered degenerative change of the sternoclavicular joints, left shoulder, spine, SI joints and knees. IMPRESSION: 1. 2 separate foci of activity involving the right proximal humerus, one within the region in the gle nohumeral joint and another in the region of the right greater tuberosity. Some of this activity could be related to the advanced glenohumeral osteoarthrosis seen involving the right shoulder joint on the comparison CT the chest, abdomen and pelvis; however, metastatic focus of the right greater tuberosity which is incompletely included in the [id number] on the comparison CT, cannot be entire ly excluded. Dedicated radiographs of the right shoulder recommended. 2. Prominent activity of the distal left ankle is nonspecific and may reflect healing fracture or ost eoarthritic change. Metastatic disease is not excluded. Dedicated radiographs of the left ankle recommended. 3. Degenerative activity as above. Transcribed Date/Time: 03/31/2020 7:21 PM
--- NOTE | 2020-03-31 16:07 | CT ---
CT BRAIN WITH AND WITHOUT CONTRAST: 03/31/20 HISTORY: 79-year-old male with small cell lung cancer (malignancy of upper lobe or bronchus of right lung). In itial staging. TECHNIQUE: Precontrast scan of brain IV injection iodinated contrast media: Administered. Postcontrast scan of brain FINDINGS: There is no midline shift or any other mass effect. There is no evidence of acute intracranial hemor rhage, large cortical infarct, obstructive hydrocephalus, or extraaxial fluid collection. There is n o abnormal enhancement or mass. The calvarium is intact. There is diffuse parenchymal volume loss. There are low attenuation areas in the white matter. These are nonspecific, but in a patient of this age, they are probably chronic ischemic white matter changes due to microvascular atherosclerosis. IMPRESSION: 1) No acute or aggressive intracranial findings. 2) Involutional changes and chronic ischemic white matter changes. jn [] POS: JIN
--- NOTE | 2020-03-31 16:38 | RAD ---
a XR Ankle Lt 3 View STANDARD INDICATION: Abnormal bone scan COMPARISON: Bone scan dated March 31, 2020 FINDINGS: Bones: There is subtle lucency involving the distal tibial metadiaphyseal region and left tibial medi al malleolus or region that corresponds to the region of increased uptake on the comparison bone scan. No acute fractures evident. There is moderate enthesopathic change off the plantar calcaneus. Ankle mortise: There is mild tibiotalar joint osteoarthrosis. Talar Dome: Intact. Subtalar joint: Mild degenerative change of the subtalar joint. Visualized hindfoot: Normal. Periarticular soft tissues: There are mild vascular calcifications seen involving the visualized vasc ulature. IMPRESSION: 1. There is subtle lucency involving the distal left tibial metadiaphyseal region and medial malleolu s corresponding to the area increased activity on the bone scan. 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 2. Mild tibiotalar and posterior subtalar osteoarthrosis.
--- NOTE | 2020-03-31 18:31 | RAD ---
RIGHT SHOULDER THREE VIEWS: 03/31/20 HISTORY: Abnormal uptake noted on bone scan. Patient also has a history of small cell lung cancer. COMPARISON: The bone scan exam done earlier today. FINDINGS: There is severe arthritic changes in the shoulder. Marked degenerative changes of the glenohumeral genaro int space explains the uptake at this level. The greater tuberosity uptake is more difficult to expla in. Some questionable slight lucency to the bone in this region which would make it difficult to excl ude a lytic bony focus although I see no obvious bony destructive change. An option for further inves tigation would be a CT examination to see if there is a true lytic bony focus that is not explained b y subchondral bony change related to the advanced arthritis. IMPRESSION: Marked arthritic changes of the glenohumeral joint space. There is subchondral cystic change of the h umeral head but this does not definitely explain the findings of the greater tuberosity region. This area shows some lucency but is not a definitive lytic focus but given the degree of uptake on bone sc an I would recommend a CT for further evaluation to see if there is a true lytic bony focus in this a zenaida. POS: MINE
[2020-03-31] MEDS: Rosuvastatin 20 MG TAB PO SCH (21:48)
[2020-03-31] MEDS: Melatonin 3 MG TAB PO PRN (21:48)
[2020-03-31] MEDS ORDERED: ALPRAZolam 0.5 MG TAB PO SCH (23:45)
[2020-04-01] MEDS ORDERED: SODIUM CHLORIDE 0.9% IVPB SCH ×2 (06:00)
[2020-04-01] MEDS ORDERED: CARBOPLATIN IVPB SCH (06:00)
[2020-04-01] MEDS ORDERED: Palonosetron HCl 0.25 MG in Sodium Chloride 0.9% 50 ML IVPB SCH (06:00)
[2020-04-01] MEDS ORDERED: ETOPOSIDE IVPB SCH (06:00)
[2020-04-01] MEDS: Mometasone 200 MCG/Formoterol 5 MCG 120 PUFF INHALER INH SCH ×2 (06:37→19:02)
[2020-04-01] MEDS ORDERED: PALONOSETRON HCL 0.05 MG/ML 5 ML VIAL IVP SCH (07:00)
[2020-04-01] MEDS: Gabapentin 300 MG CAP PO SCH ×2 (09:00→20:20)
[2020-04-01] MEDS: guaiFENesin ER 600 MG TAB PO SCH ×2 (09:00→20:20)
[2020-04-01] MEDS: NPH, Human Insulin Isophane 300 UNIT/3 ML VIAL SC SCH ×2 (09:07→21:21)
[2020-04-01] MEDS ORDERED: Fentanyl 100 MCG/2 ML VIAL ONE (10:26)
[2020-04-01] MEDS ORDERED: Midazolam HCl 2 mg/2 ml Vial ONE (10:26)
[2020-04-01 10:33] LABS: #Eosinphils 0.2 thou/uL (0.0-0.7); #Lymphocytes 1.5 thou/uL (1.20-3.40); #Monocytes 1.1 thou/uL (0.11-0.59); #Neutrophils 7.7 thou/uL (1.40-6.50); %Basophils 0.1 % (0.0-1.0); %Lymphocytes 14.2 % (21.0-51.0); %Monocytes 10.3 % (0.0-10.0); %Neutrophils 73.5 % (42.0-75.0); Hemoglobin 12.4 g/dL (14.0-18.0); Mean Corpuscular HGB CONC 32.6 g/dL (32.0-36.0); Mean Corpuscular Hemoglobin 28.9 pg (27.0-31.0); Mean Corpuscular Volume 88.6 fL (78.0-98.0); Mean Platelet Volume 9.5 fL (7.4-10.4); Platelet Count 210 thou/uL (130-400); RBC Distribution Width 13.4 % (11.5-14.5); Red Blood Cell (RBC) Count 4.29 mill/uL (4.70-6.10); White Blood Cell (WBC) Count 10.5 thou/uL (4.8-10.8)
[2020-04-01] MEDS ORDERED: Ondansetron HCl/PF 4 MG/2 ML Vial IVP PRN (10:37)
[2020-04-01] MEDS ORDERED: Lidocaine 1% w/Epinephrine 1:100K 20 ML VIAL ONE (10:51)
[2020-04-01 11:02] LABS: ALT (SGPT) 15 U/L (8-55); AST (SGOT) 17 U/L (5-34); Albumin 3.6 g/dL (3.4-4.8); Alkaline Phosphatase 101 U/L (40-110); Anion Gap 15 mmol/L (10-20); BUN (Urea Nitrogen) 29 mg/dL (8.4-25.7); Bilirubin, Total 0.5 mg/dL (0.2-1.2); Calc. Creatinine Clearance 48 mL/min (70-130); Calcium 8.6 mg/dL (7.8-10.44); Carbon Dioxide 26 mmol/L (23-31); Chloride 106 mmol/L (98-107); Globulin 3.1 g/dL (2.4-3.5); Glucose 100 mg/dL (83-110); Potassium 3.7 mmol/L (3.5-5.1); Protein, Total 6.7 g/dL (5.8-8.1); Sodium 143 mmol/L (136-145); Uric Acid 10.2 mg/dL (3.5-7.2)
[2020-04-01] MEDS: Dextrose 5% in Water 1,000 ML IV PRN (11:49)
--- NOTE | 2020-04-01 12:02 | PRG ---
DATE OF SERVICE: 04/01/2020 SUBJECTIVE: This morning, he is still having difficulty breathing. He is scheduled to get his chemotherapy; a MediPort is being inserted. OBJECTIVE: VITAL SIGNS: Temperature 98, pulse , respiratory rate 16, sats 94% on 3 L, blood pressure 126/65. CHEST: No wheezing; no crackles. CARDIAC: Normal S1, S2. No gallops. LABORATORY DATA: Unremarkable. Creatinine 1.59. IMPRESSION: 1. Small cell carcinoma, status post CME. 2. Chronic obstructive respiratory failure. 3. Respiratory failure. PLAN: Disposition as per Oncology. Pulmonary abrams, continue O2 and neb treatment. Job ID: [id number]
--- NOTE | 2020-04-01 14:13 | PDOC.MOPN ---
Interval History: patient seen in PACU, s/p mediport placement. Drowsy but easily aroused. - Vital Signs Vital Signs: Vital Signs (12 hours) Temp Pulse Resp BP Pulse Ox 04/01/20 08:00 94 L 04/01/20 06:52 98.0 F 98 16 126/65 94 L 04/01/20 06:37 96 12 04/01/20 06:36 96 16 Weight Weight 187 lb 4.8 oz - Physical Exam General: No acute distress HEENT: Atraumatic, PERRLA, EOMI, Mucous membr. moist/pink Cardiovascular: Regular rate, Normal S1, Normal S2, No murmurs, Gallops, Rubs Abdomen: Normal bowel sounds, Soft, No tenderness, No hepatospenomegaly, No masses Skin: No rashes, No breakdown, No significant lesion Neurological: Normal speech Psych/Mental Status: Mental status NL - Labs Result Diagrams: 04/01/20 10:12 04/01/20 10:12 Lab results: Laboratory Results - last 24 hr 04/01/20 12:19: POC Glucose 106 H 04/01/20 10:12: WBC 10.5, RBC 4.29 L, Hgb 12.4 L, Hct 38.0 L, MCV 88.6, MCH 28.9, MCHC 32.6, RDW 13.4, Plt Count 210, MPV 9.5, Neutrophils % 73.5, Lymphocytes % 14.2 L, Monocytes % 10.3 H, Eosinophils % 2.0, Basophils % 0.1, Neutrophils # 7.7 H, Lymphocytes # 1.5, Monocytes # 1.1 H, Eosinophils # 0.2, Ba sophils # 0.0 04/01/20 10:12: Lactate Dehydrogenase 375 H 04/01/20 10:12: Sodium 143, Potassium 3.7, Chloride 106, Carbon Dioxide 26, Anion Gap 15, BUN 29 H, Creatinine 1.49 H, Estimated GFR (MDRD) 45, Glucose 100, Uric Acid 10.2 H, Calcium 8.6, Total Bilirubin 0.5, AST 17, ALT 15, Alkaline Phosphatase 101, Serum Total Protein 6.7, Albumin 3.6, Globulin 3.1, Albumin/Globulin Ratio 1.2 04/01/20 06:17: POC Glucose 70 03/31/20 20:23: POC Glucose 212 H 03/31/20 17:31: POC Glucose 166 H Status: lab reviewed by me A/P - Problem (1) Small cell lung cancer Current Visit: Yes Code(s): C34.90 - MALIGNANT NEOPLASM OF UNSP PART OF UNSP BRONCHUS OR LUNG Status: Acute - Plan Plan: 1. mediport placed today 2. Start chemo today, [address] Lisa covering this weekend.
--- NOTE | 2020-04-01 14:14 | RAD ---
Chest AP view INDICATION: History of Mediport placement COMPARISON: March 27, 2020 chest radiograph FINDINGS: Lungs: Diffuse interstitial opacities are stable. Cardiac silhouette: Dual-lead AICD and midline sternotomy changes are stable. There is a new right I J chest wall port in place. Pulmonary vasculature: Normal Pleural spaces: No pleural effusion or pneumothorax is demonstrated. Upper abdomen: No abnormality seen. Osseous structures: No acute osseous abnormality. Additional findings: None. IMPRESSION: New right IJ chest wall port. The tip of the catheter is in the region of the SVC. No pneumothorax is demonstrated. The exam is otherwise stable to the prior study.
[2020-04-01] MEDS: Dicyclomine 10 MG CAP PO SCH ×4 (15:00→20:20)
[2020-04-01] MEDS: Potassium Chloride 10 MEQ TAB PO SCH (15:21)
[2020-04-01] MEDS: Aspirin 81 mg Enteric Coated Tablet PO SCH (15:22)
[2020-04-01] MEDS: rOPINIRole HCl 0.25 MG TAB PO SCH (15:22)
[2020-04-01] MEDS: Tamsulosin HCl 0.4 MG CAP PO SCH (15:24)
[2020-04-01] MEDS: Torsemide 20 MG TAB PO SCH (15:26)
--- NOTE | 2020-04-01 15:54 | PDOC.HOSPP ---
- Subjective Subjective: s/p Mediport placed, inpt chemotherapy will start today. d/w pt's at bedside. - Objective Vital Signs & Weight: Vital Signs (12 hours) Temp Pulse Resp BP Pulse Ox 04/01/20 14:26 98.0 F 102 H 18 129/62 94 L 04/01/20 08:00 94 L 04/01/20 06:52 98.0 F 98 16 126/65 94 L 04/01/20 06:37 96 12 04/01/20 06:36 96 16 Weight Weight 187 lb I&O: 03/31/20 04/01/20 04/02/20 06:59 06:59 06:59 Intake Total 1270 Output Total 1300 Balance -30 Result Diagrams: 04/01/20 10:12 04/01/20 10:12 Additional Labs: Accuchecks 04/01/20 04/01/20 04/01/20 12:19 11:45 06:17 POC Glucose 106 H 58 L* 70 03/31/20 03/31/20 20:23 17:31 POC Glucose 212 H 166 H Radiology Reviewed by me: Yes EKG Reviewed by me: Yes Hospitalist ROS - Medication Medications: Active Medications Generic Name Dose Route Start Last Admin Trade Name Freq PRN Reason Stop Dose Admin Acetaminophen 650 mg 03/26/20 10:30 03/30/20 09:29 Acetaminophen 325 Mg Tab PO 650 mg Q4H PRN Administration Headache/Fever/Mild Pain (1-3) Albuterol/Ipratropium 3 ml 03/27/20 07:00 04/01/20 14:20 Ipratropium/Albuterol Sulfate 3 Ml Neb NEB Not Given [id number] RAMIRO Aspirin 81 mg 03/26/20 16:30 04/01/20 15:22 Aspirin 81 Mg Enteric Coated Tablet PO 81 mg DAILY RAMIRO Administration Dicyclomine HCl 10 mg 03/26/20 17:00 04/01/20 15:23 Dicyclomine 10 Mg Cap PO 10 mg QID RAMIRO Administration Gabapentin 300 mg 03/26/20 21:00 04/01/20 09:00 Gabapentin 300 Mg Cap PO Not Given BID RAMIRO Guaifenesin 600 mg 03/26/20 21:00 04/01/20 09:00 Guaifenesin Er 600 Mg Tab PO Not Given Q12HR RAMIRO Dextrose/Water 1,000 mls @ 0 mls/hr 03/26/20 13:47 04/01/20 11:49 D5w IV 1,000 mls .Q0M PRN Administration Hypoglycemia As Directed Insulin Human Lispro 0 units 03/26/20 13:47 03/31/20 17:54 Humalog 300 Units/3 Ml Vial SC 2 unit .MODERATE SLIDING SC PRN Administration Moderate Correctional Scale Insulin Human NPH 30 unit 03/26/20 21:00 04/01/20 09:07 Nph, Human Insulin Isophane 300 Unit/3 Ml Vial SC Not Given BID RAMIRO Melatonin 3 mg 03/27/20 00:33 03/31/20 21:48 Melatonin 3 Mg Tab PO 3 mg HSPRN PRN Administration Insomnia Mometasone Furoate/Formoterol Fumar 2 puff 03/29/20 18:30 04/01/20 06:37 Mometasone 200 Mcg/Formoterol 5 Mcg 120 Puff Inhaler INH 2 puff BID-RT RAMIRO Administration Pantoprazole Sodium 40 mg 03/26/20 16:30 04/01/20 15:23 Pantoprazole 40 Mg Tab PO 40 mg DAILY RAMIRO Administration Potassium Chloride 10 meq 03/26/20 16:30 04/01/20 15:21 Potassium Chloride 10 Meq Tab PO 10 meq QAM-WM RAMIRO Administration Ropinirole HCl 0.25 mg 03/26/20 16:15 04/01/20 15:22 Ropinirole Hcl 0.25 Mg Tab PO 0.25 mg DAILY RAMIRO Administration Rosuvastatin Calcium 20 mg 03/26/20 21:00 03/31/20 21:48 Rosuvastatin 20 Mg Tab PO 20 mg HS RAMIRO Administration Senna/Docusate Sodium 2 tab 03/26/20 10:30 03/31/20 08:49 Senokot S 8.6-50 Mg Tab PO 2 tab BID PRN Administration Constipation Sodium Chloride 10 ml 03/26/20 21:00 04/01/20 15:23 Flush - Normal Saline 10 Ml Syringe IVF 10 ml Q12HR RAMIRO Administration Tamsulosin HCl 0.4 mg 03/26/20 16:15 04/01/20 15:24 Tamsulosin Hcl 0.4 Mg Cap PO 0.4 mg DAILY RAMIRO Administration Torsemide 40 mg 03/28/20 09:00 04/01/20 15:26 Torsemide 20 Mg Tab PO 40 mg DAILY RAMIRO Administration Tramadol HCl 50 mg 03/26/20 13:41 03/30/20 21:29 Tramadol Hcl 50 Mg Tab PO 50 mg Q6H PRN Administration Pain - Exam General Appearance: NAD Eye: PERRL ENT: normocephalic atraumatic Neck: supple Heart: RRR Respiratory: CTAB Gastrointestinal: soft Extremities: no cyanosis Skin: normal turgor Neurological: cranial nerve grossly intact Psychiatric: normal affect, normal behavior, A&O x 3 Hosp A/P - Plan Small cell lung cancer --s/p Mediport placed, chemotherapy will start today, 3 days regimen per oncology --monitor for possible side effects. Pulmonary mass with lymphadenopathy concerning for malignancy --s/p needle biopsy - confirmed Small cell carcinoma Acute on chronic systolic CHF --euvolemic, Torsemide, cr on hold d/t incr cr --follow BMP History of coronary artery disease status post CABG --EF50-60%, cont home meds Chronic kidney disease stage III --Cr improved. avoid nephrotoxic agent DM2 -Hold glipizide, his creatinine around 1.7. Initiated sliding scale protocol along with his NPH home regimen. Diabetic neuropathy - Gabapentin PRN for neuropathic pain COPD home O2 depending 3L --keep on 3 L nasal cannula and adjust as needed --Bronchodilators as needed AAA - 3.7 cm, chronic --follow up as outpatient DVT ppx: Lovenox sq GI ppx: PPI Code: Full
[2020-04-01] MEDS: Acetaminophen 325 MG TAB PO PRN (16:51)
[2020-04-01] MEDS: HumaLOG 300 UNITS/3 ML VIAL SC PRN (16:52)
[2020-04-01] MEDS: Etoposide 200 MG in Sodium Chloride 0.9% 500 ML IVPB SCH (17:36)
[2020-04-01] MEDS: traMADol HCl 50 MG TAB PO PRN (20:19)
[2020-04-01] MEDS: Melatonin 3 MG TAB PO PRN (20:20)
[2020-04-01] MEDS: Rosuvastatin 20 MG TAB PO SCH (20:21)
[2020-04-01] MEDS: Enoxaparin Sodium 40 MG/0.4 ML SYRINGE SC SCH (20:22)
[2020-04-01] MEDS ORDERED: HumaLOG 300 UNITS/3 ML VIAL SC PRN (20:54)
[2020-04-01] MEDS: ALPRAZolam 0.5 MG TAB PO PRN (21:21)
[2020-04-02] MEDS ORDERED: SODIUM CHLORIDE 0.9% IVPB SCH (06:00)
[2020-04-02] MEDS ORDERED: ETOPOSIDE IVPB SCH (06:00)
[2020-04-02] MEDS: HumaLOG 300 UNITS/3 ML VIAL SC PRN ×3 (06:17→15:25)
[2020-04-02] MEDS: Mometasone 200 MCG/Formoterol 5 MCG 120 PUFF INHALER INH SCH ×2 (06:37→19:05)
[2020-04-02 06:41] LABS: #Basophils 0.1 thou/uL (0.0-0.2); #Lymphocytes 0.5 thou/uL (1.20-3.40); #Monocytes 0.4 thou/uL (0.11-0.59); #Neutrophils 5.6 thou/uL (1.40-6.50); %Basophils 0.9 % (0.0-1.0); %Eosinophils 0.1 % (0.0-10.0); %Lymphocytes 7.1 % (21.0-51.0); %Monocytes 6.2 % (0.0-10.0); %Neutrophils 85.7 % (42.0-75.0); Hemoglobin 11.6 g/dL (14.0-18.0); Mean Corpuscular HGB CONC 31.8 g/dL (32.0-36.0); Mean Corpuscular Hemoglobin 27.8 pg (27.0-31.0); Mean Corpuscular Volume 87.3 fL (78.0-98.0); Mean Platelet Volume 9.8 fL (7.4-10.4); Platelet Count 168 thou/uL (130-400); Red Blood Cell (RBC) Count 4.17 mill/uL (4.70-6.10); White Blood Cell (WBC) Count 6.6 thou/uL (4.8-10.8)
[2020-04-02 07:02] LABS: ALT (SGPT) 13 U/L (8-55); AST (SGOT) 15 U/L (5-34); Albumin 3.5 g/dL (3.4-4.8); Alkaline Phosphatase 99 U/L (40-110); Anion Gap 14 mmol/L (10-20); BUN (Urea Nitrogen) 37 mg/dL (8.4-25.7); Bilirubin, Total 0.5 mg/dL (0.2-1.2); Calc. Creatinine Clearance 40 mL/min (70-130); Calcium 8.3 mg/dL (7.8-10.44); Carbon Dioxide 24 mmol/L (23-31); Chloride 103 mmol/L (98-107); Globulin 2.9 g/dL (2.4-3.5); Glucose 406 mg/dL (83-110); Magnesium 2.5 mg/dL (1.6-2.6); Potassium 4.4 mmol/L (3.5-5.1); Protein, Total 6.4 g/dL (5.8-8.1); Sodium 137 mmol/L (136-145)
[2020-04-02] MEDS: Aspirin 81 mg Enteric Coated Tablet PO SCH (08:30)
[2020-04-02] MEDS: Dicyclomine 10 MG CAP PO SCH ×4 (08:30→20:28)
[2020-04-02] MEDS: Potassium Chloride 10 MEQ TAB PO SCH (08:30)
[2020-04-02] MEDS: Torsemide 20 MG TAB PO SCH (08:31)
[2020-04-02] MEDS: Gabapentin 300 MG CAP PO SCH ×2 (08:31→20:28)
[2020-04-02] MEDS: Tamsulosin HCl 0.4 MG CAP PO SCH (08:31)
[2020-04-02] MEDS: guaiFENesin ER 600 MG TAB PO SCH ×2 (08:32→20:28)
[2020-04-02] MEDS: rOPINIRole HCl 0.25 MG TAB PO SCH (08:32)
[2020-04-02] MEDS: NPH, Human Insulin Isophane 300 UNIT/3 ML VIAL SC SCH ×2 (08:33→20:29)
--- NOTE | 2020-04-02 10:51 | PDOC.HOSPP ---
- Subjective Encounter Date: 04/02/20 Encounter Time: 10:20 Subjective: Patient seen this morning. His is at bedside. He has no nausea. He got 1 chemo yesterday. Mediport placed yesterday. Is tolerating his p.o. intake. - Objective Vital Signs & Weight: Vital Signs (12 hours) Temp Pulse Resp BP Pulse Ox 04/02/20 07:14 97.6 F 99 16 108/55 L 92 L 04/02/20 06:37 88 16 04/02/20 06:34 88 16 04/02/20 04:00 97.8 F 88 18 108/58 L 94 L 04/02/20 03:02 95 04/02/20 00:00 97.6 F 87 16 111/57 L 95 Weight Weight 188 lb 14.4 oz I&O: 04/01/20 04/02/20 04/03/20 06:59 06:59 06:59 Intake Total 1996 Output Total 1300 Balance 696 Result Diagrams: 04/02/20 06:25 04/02/20 06:25 Additional Labs: Accuchecks 04/02/20 04/01/20 04/01/20 05:56 16:34 12:19 POC Glucose 354 H 325 H 106 H 04/01/20 11:45 POC Glucose 58 L* Hospitalist ROS - Medication Medications: Active Medications Generic Name Dose Route Start Last Admin Trade Name Freq PRN Reason Stop Dose Admin Acetaminophen 650 mg 03/26/20 10:30 04/01/20 16:51 Acetaminophen 325 Mg Tab PO 650 mg Q4H PRN Administration Headache/Fever/Mild Pain (1-3) Albuterol/Ipratropium 3 ml 03/27/20 07:00 04/02/20 06:34 Ipratropium/Albuterol Sulfate 3 Ml Neb NEB 3 ml [id number] RAMIRO Administration Alprazolam 0.5 mg 04/01/20 20:55 04/01/20 21:21 Alprazolam 0.5 Mg Tab PO 0.5 mg HSPRN PRN Administration Anxiety/Insomnia Aspirin 81 mg 03/26/20 16:30 04/02/20 08:30 Aspirin 81 Mg Enteric Coated Tablet PO 81 mg DAILY RAMIRO Administration Dicyclomine HCl 10 mg 03/26/20 17:00 04/02/20 08:30 Dicyclomine 10 Mg Cap PO 10 mg QID RAMIRO Administration Enoxaparin Sodium 40 mg 04/01/20 21:00 04/01/20 20:22 Enoxaparin Sodium 40 Mg/0.4 Ml Syringe SC 40 mg 2100 RAMIRO Administration Gabapentin 300 mg 03/26/20 21:00 04/02/20 08:31 Gabapentin 300 Mg Cap PO 300 mg BID RAMIRO Administration Guaifenesin 600 mg 03/26/20 21:00 04/02/20 08:32 Guaifenesin Er 600 Mg Tab PO 600 mg Q12HR RAMIRO Administration Dextrose/Water 1,000 mls @ 0 mls/hr 03/26/20 13:47 04/01/20 11:49 D5w IV 1,000 mls .Q0M PRN Administration Hypoglycemia As Directed Etoposide 200 mg/ Sodium 510 mls @ 510 mls/hr 04/01/20 07:15 04/01/20 17:36 Chloride IVPB 04/03/20 23:00 510 mls WILLCALL RAMIRO Administration Insulin Human Lispro 0 units 03/26/20 13:47 04/02/20 06:17 Humalog 300 Units/3 Ml Vial SC 10 unit .MODERATE SLIDING SC PRN Administration Moderate Correctional Scale Insulin Human Lispro 0 units 04/01/20 20:54 04/01/20 21:21 Humalog 300 Units/3 Ml Vial SC 5 unit .BEDTIME SLIDING SC PRN Administration Bedtime Correctional Scale Insulin Human NPH 30 unit 03/26/20 21:00 04/02/20 08:33 Nph, Human Insulin Isophane 300 Unit/3 Ml Vial SC 30 unit BID RAMIRO Administration Melatonin 3 mg 03/27/20 00:33 04/01/20 20:20 Melatonin 3 Mg Tab PO 3 mg HSPRN PRN Administration Insomnia Mometasone Furoate/Formoterol Fumar 2 puff 03/29/20 18:30 04/02/20 06:37 Mometasone 200 Mcg/Formoterol 5 Mcg 120 Puff Inhaler INH 2 puff BID-RT RAMIRO Administration Pantoprazole Sodium 40 mg 03/26/20 16:30 04/02/20 08:32 Pantoprazole 40 Mg Tab PO 40 mg DAILY RAMIRO Administration Potassium Chloride 10 meq 03/26/20 16:30 04/02/20 08:30 Potassium Chloride 10 Meq Tab PO 10 meq QAM-WM RAMIRO Administration Ropinirole HCl 0.25 mg 03/26/20 16:15 04/02/20 08:32 Ropinirole Hcl 0.25 Mg Tab PO 0.25 mg DAILY RAMIRO Administration Rosuvastatin Calcium 20 mg 03/26/20 21:00 04/01/20 20:21 Rosuvastatin 20 Mg Tab PO 20 mg HS RAMIRO Administration Senna/Docusate Sodium 2 tab 03/26/20 10:30 03/31/20 08:49 Senokot S 8.6-50 Mg Tab PO 2 tab BID PRN Administration Constipation Sodium Chloride 10 ml 03/26/20 21:00 04/02/20 08:33 Flush - Normal Saline 10 Ml Syringe IVF 10 ml Q12HR RAMIRO Administration Sodium Chloride 10 ml 03/26/20 11:15 04/01/20 20:22 Flush - Normal Saline 10 Ml Syringe IVF 10 ml PRN PRN Administration Saline Flush Tamsulosin HCl 0.4 mg 03/26/20 16:15 04/02/20 08:31 Tamsulosin Hcl 0.4 Mg Cap PO 0.4 mg DAILY RAMIRO Administration Torsemide 40 mg 03/28/20 09:00 04/02/20 08:31 Torsemide 20 Mg Tab PO 40 mg DAILY RAMIRO Administration Tramadol HCl 50 mg 03/26/20 13:41 04/01/20 20:19 Tramadol Hcl 50 Mg Tab PO 50 mg Q6H PRN Administration Pain - Exam General Appearance: NAD, awake alert Eye: PERRL ENT: normocephalic atraumatic Neck: supple Heart: RRR Respiratory: CTAB Gastrointestinal: soft, normal bowel sounds Psychiatric: A&O x 3 Hosp A/P - Plan Pulmonary mass, weight loss and the less p.o. intake COPD -he has a remote history of tobacco abuse and he quit smoking 20 years ago -Right hilar mediastinal mass Small cell lung cancer --s/p Mediport placed, chemotherapy started yesterday and he will get 2 more days of chemo. --monitor for possible side effects. DM2 -Hold glipizide, his creatinine around 1.7. Initiated sliding scale protocol along with his NPH home regimen. Diabetic neuropathy - Gabapentin PRN for neuropathic pain Acute on chronic systolic CHF Suspected acute on chronic systolic CHF exacerbation History of ischemic cardiomyopathy History of coronary artery disease status post CABG -status post AICD implantation remotely --euvolemic, Torsemide, cr on hold d/t incr cr --follow BMP History of coronary artery disease status post CABG --EF50-60%, cont home meds Chronic kidney disease stage III --Cr improved. avoid nephrotoxic agent DM2 -Hold glipizide, his creatinine around 1.7. Initiated sliding scale protocol along with his NPH home regimen. Diabetic neuropathy - Gabapentin PRN for neuropathic pain COPD home O2 depending 3L --keep on 3 L nasal cannula and adjust as needed --Bronchodilators as needed AAA - 3.7 cm, chronic --follow up as outpatient DVT ppx: Lovenox sq GI ppx: PPI
--- NOTE | 2020-04-02 11:54 | PDOC.MOPN ---
Interval History: Pt feeling ok today. Denies N/V/D/C. He is sore from his mediport placement. Spoke to him and his about long-term treatment plan. - Vital Signs Vital Signs: Vital Signs (12 hours) Temp Pulse Resp BP Pulse Ox 04/02/20 07:14 97.6 F 99 16 108/55 L 92 L 04/02/20 06:37 88 16 04/02/20 06:34 88 16 04/02/20 04:00 97.8 F 88 18 108/58 L 94 L 04/02/20 03:02 95 04/02/20 00:00 97.6 F 87 16 111/57 L 95 Weight Weight 188 lb 14.4 oz - Physical Exam General: Alert, Oriented x3, Cooperative HEENT: EOMI Lungs: Normal air movement Cardiovascular: Regular rate, Normal S1, Normal S2 Abdomen: Soft Neurological: Cranial nerves 3-12 NL - Labs Result Diagrams: 04/02/20 06:25 04/02/20 06:25 Lab results: Laboratory Results - last 24 hr 04/02/20 06:25: WBC 6.6, RBC 4.17 L, Hgb 11.6 L, Hct 36.4 L, MCV 87.3, MCH 27.8, MCHC 31.8 L, RDW 13.0, Plt Count 168, MPV 9.8, Neutrophils % 85.7 H, Lymphocytes % 7.1 L, Monocytes % 6.2, Eosinophils % 0.1, Basophils % 0.9, Neutrophils # 5.6, Lymphocytes # 0.5 L, Monocytes # 0.4, Eosinophils # 0.0, Basophils # 0.1 04/02/20 06:25: Sodium 137, Potassium 4.4, Chloride 103, Carbon Dioxide 24, Anion Gap 14, BUN 37 H, Creatinine 1.79 H, Estimated GFR (MDRD) 37, Glucose 406 H, Calcium 8.3, Magnesium 2.5, Total Bilirubin 0.5, AST 15, ALT 13, Alkaline Phosphatase 99, Serum Total Protein 6.4, Albumin 3.5, Globulin 2.9, Albumin/Globulin Ratio 1.2 04/02/20 05:56: POC Glucose 354 H 04/01/20 16:34: POC Glucose 325 H 04/01/20 12:19: POC Glucose 106 H 12/11/20 11:45: POC Glucose 58 L* A/P - Problem (1) Small cell lung cancer Current Visit: Yes Code(s): C34.90 - MALIGNANT NEOPLASM OF UNSP PART OF UNSP BRONCHUS OR LUNG Status: Acute - Plan Plan: C1D2 of Carboplatin + VP16 cont chemo, complete tomorrow Neulasta 24 after chemo complete - may DC home tomorrow if stable and come back Saturday for shot PET as outpt to confirm limited stage and refer to RadOnc if confirmed
[2020-04-02] MEDS: Etoposide 200 MG in Sodium Chloride 0.9% 500 ML IVPB SCH (15:01)
[2020-04-02] MEDS: traMADol HCl 50 MG TAB PO PRN ×2 (15:07→20:32)
[2020-04-02] MEDS: Rosuvastatin 20 MG TAB PO SCH (20:28)
[2020-04-02] MEDS: Enoxaparin Sodium 40 MG/0.4 ML SYRINGE SC SCH (20:29)
[2020-04-02] MEDS: ALPRAZolam 0.5 MG TAB PO PRN (21:30)
[2020-04-02] MEDS: Melatonin 3 MG TAB PO PRN (21:30)
[2020-04-03] MEDS ORDERED: traMADol HCl 50 MG TAB PO SCH (00:15)
[2020-04-03] MEDS: Acetaminophen 325 MG TAB PO PRN (02:53)
[2020-04-03] MEDS: Dextrose 5% in Water 1,000 ML IV PRN (05:52)
[2020-04-03] MEDS ORDERED: ETOPOSIDE IVPB SCH (06:00)
[2020-04-03] MEDS ORDERED: Pegfilgrastim Onpro 6 MG/0.6 ML SQ SCH (06:00)
[2020-04-03] MEDS ORDERED: SODIUM CHLORIDE 0.9% IVPB SCH (06:00)
--- NOTE | 2020-04-03 06:02 | OP ---
DATE OF PROCEDURE: 04/01/2020 PREOPERATIVE DIAGNOSIS: Small cell cancer. PROCEDURE PERFORMED: MediPort placement. ANESTHESIA: Sedation with local. DESCRIPTION OF PROCEDURE: After prepping and draping, lidocaine was infiltrated in the right side of the neck as well as in the right anterior pectoralis area. Ultrasound-guided puncture of the jugular vein was carried out, following which, a wire was inserted under fluoroscopy. The skin was incised over the anterior pectoral region and a pocket created for the MediPort. Using lidocaine and a tunneler, the catheter was then brought from one incision to the other. The dilator was then advanced over the wire under fluoroscopy and the peel-away sheath was peeled away as the catheter was advanced into the superior vena cava. There was no kink in the catheter and it was connected to the port, placed in the subcutaneous position and secured with sutures. The patient tolerated the procedure well and the port was flushed. Job ID: [id number]
[2020-04-03] MEDS: Mometasone 200 MCG/Formoterol 5 MCG 120 PUFF INHALER INH SCH (06:10)
[2020-04-03] MEDS ORDERED: PEGFILGRASTIM-JMDB 6 MG/0.6 ML SYRINGE SQ SCH (07:15)
[2020-04-03] MEDS ORDERED: Torsemide 20 MG TAB PO SCH (08:40)
[2020-04-03] MEDS: guaiFENesin ER 600 MG TAB PO SCH (09:17)
[2020-04-03] MEDS: Gabapentin 300 MG CAP PO SCH (09:17)
[2020-04-03] MEDS: Potassium Chloride 10 MEQ TAB PO SCH (09:18)
[2020-04-03] MEDS: Tamsulosin HCl 0.4 MG CAP PO SCH (09:18)
[2020-04-03] MEDS: rOPINIRole HCl 0.25 MG TAB PO SCH (09:18)
[2020-04-03] MEDS: Aspirin 81 mg Enteric Coated Tablet PO SCH (09:18)
[2020-04-03] MEDS: Dicyclomine 10 MG CAP PO SCH ×2 (09:18→12:39)
[2020-04-03] MEDS: NPH, Human Insulin Isophane 300 UNIT/3 ML VIAL SC SCH (10:09)
[2020-04-03] MEDS: Etoposide 200 MG in Sodium Chloride 0.9% 500 ML IVPB SCH (11:03)
--- NOTE | 2020-04-03 11:40 | PDOC.MOPN ---
Interval History: Pt feeling ok today. SOB at baseline on 3L. No major cough. Walked to end of hallway and back w/o difficulties. Requesting to go home. - Vital Signs Vital Signs: Vital Signs (12 hours) Temp Pulse Pulse Pulse Resp BP BP 04/03/20 09:00 96 88 132/64 129/59 L 04/03/20 08:00 97.6 F 88 18 04/03/20 06:10 88 20 04/03/20 06:00 71 20 04/03/20 04:00 98.3 F 89 18 04/03/20 00:53 04/03/20 00:00 98.3 F 82 18 BP BP Pulse Ox Pulse Ox Pulse Ox 04/03/20 09:00 99 94 L 04/03/20 08:00 129/59 L 94 L 04/03/20 06:10 04/03/20 06:00 163/77 H 04/03/20 04:00 124/64 95 04/03/20 00:53 97 04/03/20 00:00 110/58 L 95 Weight Weight 189 lb 4.8 oz - Physical Exam General: Alert, Oriented x3, Cooperative HEENT: EOMI Lungs: Normal air movement Cardiovascular: Regular rate Neurological: Cranial nerves 3-12 NL - Labs Result Diagrams: 04/02/20 06:25 04/02/20 06:25 Lab results: Laboratory Results - last 24 hr 04/03/20 11:13: POC Glucose 292 H 04/02/20 20:25: POC Glucose 182 H 04/02/20 12:43: POC Glucose 402 H A/P - Problem (1) Small cell lung cancer Current Visit: Yes Code(s): C34.90 - MALIGNANT NEOPLASM OF UNSP PART OF UNSP BRONCHUS OR LUNG Status: Acute - Plan Plan: C1D3 chemo today due for neulasta tomorrow, can be given here if he stays inpatient, otherwise will give in clinic tomorrow monitor glucose, may need to remain admitted for this, will defer to Dr. Vicente PET as outpatient ok to discharge after chemo today form oncology standpoint
--- NOTE | 2020-04-03 12:28 | PDOC.DS.DS ---
Provider - Provider Date of Admission: 03/26/20 02:55 Admitting Provider: Lauri Herron DO Primary Care Physician: OUT OF TOWN Course - Hospital Course Hospital Course: 79-year-old male presented with Pulmonary mass, weight loss and the less p.o. intake COPD -he has a remote history of tobacco abuse and he quit smoking 20 years ago -Right hilar mediastinal mass Small cell lung cancer --s/p Mediport placed, he is currently on chemo finished with 3 days. He will follow with Dr. Lisa closely. Acute on chronic systolic CHF Suspected acute on chronic systolic CHF exacerbation History of ischemic cardiomyopathy History of coronary artery disease status post CABG -status post AICD implantation remotely --euvolemic, Torsemide, cr on hold d/t incr cr --follow BMP History of coronary artery disease status post CABG --EF50-60%, cont home meds Chronic kidney disease stage III DM2 -Discontinued glipizide his creatinine around 1.7. He is on NPH home regimen.dose decreased given the overnight blood glucose reading being low. Instructions given for him to closely monitor his blood glucose readings at least for a week prior to seeing his primary care physician. And take the glucometer readings to be reviewed by his primary care physicians and to adjust insulin regimen as needed. Diabetic neuropathy - Gabapentin PRN for neuropathic pain COPD home O2 depending 3L AAA - 3.7 cm, chronic --follow up as outpatient Discharge time over 30-minutes. Resuscitation Status: 03/26/20 10:30 Resuscitation Status Routine Resuscitation Status: FULL: Full Resuscitation - Labs Lab Results: 04/02/20 06:25 04/02/20 06:25 Abnormal Lab Results - Last 48 hrs 04/02/20 06:25: BUN 37 H, Creatinine 1.79 H 04/02/20 06:25: RBC 4.17 L, Hgb 11.6 L, Hct 36.4 L, MCHC 31.8 L, Neutrophils % 85.7 H, Lymphocytes % 7.1 L, Lymphocytes # 0.5 L - Physical Exam Vitals: Vital Signs (12 hours) Temp Pulse Pulse Pulse Resp BP BP 04/03/20 09:00 96 88 132/64 129/59 L 04/03/20 08:00 97.6 F 88 18 04/03/20 06:10 88 20 04/03/20 06:00 71 20 04/03/20 04:00 98.3 F 89 18 04/03/20 00:53 BP BP Pulse Ox Pulse Ox Pulse Ox 04/03/20 09:00 99 94 L 04/03/20 08:00 129/59 L 94 L 04/03/20 06:10 04/03/20 06:00 163/77 H 04/03/20 04:00 124/64 95 04/03/20 00:53 97 Weight Weight 189 lb 4.8 oz Physical Exam: The patient was seen and examined on the day of discharge. His blood glucose was low last night. Insulin dose is adjusted.. His latest blood glucose readings are much better; in fact it is around 300-200 range. Instructions given to follow his blood glucose readings and follow-up with primary care physician. Plan - Discharge Medications Home Medications: Medication Instructions Recorded Confirmed Type Aspirin [Ecotrin Low Strength] 81 mg PO DAILY 03/27/20 03/27/20 History Budesonide/Formoterol Fumarate 2 puff IH BID 03/27/20 03/27/20 History [Budesonide-Formoterol 160-4.5] Carvedilol [Coreg] 3.125 mg PO BID 03/27/20 03/27/20 History Diclofenac Sodium [Diclofenac 4 gm TOP QID PRN 03/27/20 03/27/20 History Sodium 1% Gel] Dicyclomine [Bentyl] 20 mg PO DAILY 03/27/20 03/27/20 History Famotidine [Pepcid] 20 mg PO BID 03/27/20 03/27/20 History Gabapentin 300 mg PO AC 03/27/20 03/27/20 History Gabapentin 600 mg PO HS 03/27/20 03/27/20 History Ipratropium/Albuterol Sulfate 3 ml NEB QID 03/27/20 03/27/20 History [DuoNeb] Levocetirizine Dihydrochloride 5 mg PO HS 03/27/20 03/27/20 History Lovastatin 40 mg PO QPM-WM 03/27/20 03/27/20 History Meloxicam [Mobic] 15 mg PO DAILY 03/27/20 03/27/20 History Omeprazole 40 mg PO DAILY 03/27/20 03/27/20 History Potassium Chloride [Klor-Con 10] 10 meq PO DAILY 03/27/20 03/27/20 History Tamsulosin HCl [Flomax] 0.4 mg PO DAILY 03/27/20 03/27/20 History Torsemide 40 mg PO DAILY 03/27/20 03/27/20 History guaiFENesin/DM ER [Mucinex DM] 1 tab PO BID 03/27/20 03/27/20 History rOPINIRole HCl [Requip] 0.25 mg PO HS 03/27/20 03/27/20 History traMADol HCl [Tramadol HCl] 50 mg PO Q6HR PRN 03/27/20 03/27/20 History traZODone HCl [Trazodone HCl] 50 mg PO HS 03/27/20 03/27/20 History NPH, Human Insulin Isophane 25 unit SC BID #0 04/03/20 03/27/20 Rx [HumuLIN N] Allergies: No Known Allergies Allergy (Unverified 03/26/20 02:47) - Discharge Instructions Discharge Instructions:: Follow-up with PCP in 1 week Please check your blood sugar in the evening. If your blood sugar is less than 100 do not give the evening dose of insulin, call your primary doctor in the morning for adjustment of insulin doses and take blood glucose readings for 1 week, and discuss with the primary care in the follow-up appointment. Activity:: Activity as Tolerated Nourishment:: Diabetic Diet - Follow up Plan Referrals: [facility],OUT OF [Primary Care Provider] - Jimbo Lisa MD [Active] - (call for appointment) Disposition: HOME Quality - Care Measures CORE MEASURES:: N/A
[2020-04-03] MEDS: HumaLOG 300 UNITS/3 ML VIAL SC PRN (12:36)
[2020-04-03 12:53] VITALS: BP 122/62; TEMP 97.9
[2020-04-04] MEDS ORDERED: NPH, Human Insulin Isophane 300 UNIT/3 ML VIAL SC SCH ×2 (09:00)
== END 2020-04-03 15:48 | disposition home or self-care (01) | DRG 166 ==
LOC: ERS 22:16 → ERHOLD 03-26 02:55 → 2NO 03-26 20:54 → ONC 03-31 14:08
PROVIDERS: ADMIT Family Medicine; ATTEND Family Medicine
PROC: 07B74ZX Excision of Thorax Lymphatic, Percutaneous Endoscopic Approach, Diagnostic (ICD-10-PCS; principal; 2020-03-28)
PROC: 0JH63WZ Insertion of Totally Implantable Vascular Access Device into Chest Subcutaneous Tissue and Fascia, Percutaneous Approach (ICD-10-PCS; 2020-04-01)
PROC: 02HV33Z Insertion of Infusion Device into Superior Vena Cava, Percutaneous Approach (ICD-10-PCS; 2020-04-01)
DX: C34.90 Malignant neoplasm of unspecified part of unspecified bronchus or lung (principal); I50.23 Acute on chronic systolic (congestive) heart failure; J18.9 Pneumonia, unspecified organism; J96.90 Respiratory failure, unspecified, unspecified whether with hypoxia or hypercapnia; I13.0 Hypertensive heart and chronic kidney disease with heart failure and stage 1 through stage 4 chronic kidney disease, or unspecified chronic kidney disease; J44.0 Chronic obstructive pulmonary disease with (acute) lower respiratory infection; N40.0 Benign prostatic hyperplasia without lower urinary tract symptoms; F32.9 Major depressive disorder, single episode, unspecified; Z87.891 Personal history of nicotine dependence; I25.2 Old myocardial infarction; Z95.1 Presence of aortocoronary bypass graft; Z79.899 Other long term (current) drug therapy; Z79.4 Long term (current) use of insulin; Z79.82 Long term (current) use of aspirin; E78.5 Hyperlipidemia, unspecified; I25.10 Atherosclerotic heart disease of native coronary artery without angina pectoris; Z96.652 Presence of left artificial knee joint; N18.30 Chronic kidney disease, stage 3 unspecified; E11.22 Type 2 diabetes mellitus with diabetic chronic kidney disease; E11.40 Type 2 diabetes mellitus with diabetic neuropathy, unspecified; R91.8 Other nonspecific abnormal finding of lung field; I25.5 Ischemic cardiomyopathy; Z95.810 Presence of automatic (implantable) cardiac defibrillator; M19.90 Unspecified osteoarthritis, unspecified site; R09.02 Hypoxemia; R59.1 Generalized enlarged lymph nodes; Z99.81 Dependence on supplemental oxygen; I71.4 Abdominal aortic aneurysm, without rupture; R59.0 Localized enlarged lymph nodes
CPT/HCPCS: 36415; 36416; 70470; 71045; 71260; 74177; 78306; 80048; 80053; 83615; 83735; 83880; 84484; 84550; 85007; 85025; 85027; 88184; 88185; 88305; 88331; 88334; 88341; 88342; 93005; 93306; 94640; 94664; A9503; C1788; J0171; J0696; J1100; J1642; J1650; J1815; J1885; J1940; J2250; J2405; J2469; J2704; J3010; J3490; J7030; J7050; J7620; J9045; J9181; S0020

== ENCOUNTER 2020-04-12 09:55 | Outpatient (CLI) | payer MEDICARE ==
--- NOTE | 2020-04-12 14:09 | PET ---
Nuclear medicine FDG PET/CT: (Positron emission tomography and computed tomography) DATE: 04/12/2020 HISTORY: 79-year-old male with small cell lung cancer. "C 34.01 malignant neoplasm of right main bronchus." In itial staging COMPARISON: CT of chest abdomen and pelvis, 03/31/2020. No prior PET scan TECHNIQUE: IV injection of F-18 fluorodeoxyglucose (FDG) dose: 11.5 mCi. PET scan and attenuation correction CT performed from skull base to proximal thighs. FINDINGS: SUV (standard uptake values) numbers given are maximum SUVs. QCLR used. Nondiagnostic noncontrast attenuation correction CT findings: 3.6 cm fusiform infrarenal abdominal aortic aneurysm. Large number of bilateral exophytic renal cysts, small, medium, and large. Cardiac implantable electronic device with left-sided generator. Implantable vascular access port, right IJ, with distal tip at SVC. Laminectomy defects with bilateral pedicle screws at lower lumbar spine and lumbosacral junction. Approximately 1.2 x 0.9 cm soft tissue density nodule abutting posterior surface of superficial lobe of left parotid gland, and abutting upper lateral portion of left sternocleidomastoid muscle. SUV 9.6. The previously demonstrated 4.8 x 4.6 cm right-sided mediastinal tumor between the right mainstem br onchus and ascending aorta, has decreased in size to current dimensions of 2.8 x 3.3 cm. SUV 6.3. The previously demonstrated 3.3 x 5.7 cm right anterior upper mediastinal conglomeration of lymph nod es is currently approximately 2.5 x 3.5 cm. SUV 5.0. Previously, right lateral mediastinal-right anterior medial hilar conglomeration of lymph nodes was a pproximately 4.8 x 4.2 cm. Currently approximately 1 x 2 cm. SUV 5.0. No mediastinal lymph nodes to the left of midline. No pulmonary metastasis. No convincing evidence of metastatic activity within abdominal cavity or pelvic cavity. IMPRESSION: 1) significant interval response to chemotherapy, with rapid shrinkage in 12 days, of right mediastin al mass and conglomeration of right mediastinal/hilar lymphadenopathy, compared to CT of 03/31/2020. These are hypermetabolic malignant tissue. 5) small hypermetabolic nodule in superficial tissues of left lateral upper neck, abutting the wide piece goods inspector ior surface of the left parotid gland, which could represent a metastatic unnamed lymph node. Ultrasound-guided fine-needle aspiration biopsy should be considered.
== END 2020-04-12 09:56 | disposition home or self-care (01) ==
LOC: PET 09:55
PROVIDERS: ATTEND Internal Medicine Hematology & Oncology
DX: C34.01 Malignant neoplasm of right main bronchus (principal); R59.0 Localized enlarged lymph nodes
CPT/HCPCS: 78815; A9552

== ENCOUNTER 2020-04-29 09:05 | Day surgery (SDC) | payer MEDICARE ==
[2020-04-28 14:45] VITALS: BMI 25.5
[2020-04-29] MEDS ORDERED: Sodium Bicarbonate 2.5 MEQ/5 ML VIAL ONE (09:48)
[2020-04-29 10:42] VITALS: BP 150/94; TEMP 97
--- NOTE | 2020-04-29 11:42 | ULT ---
Left neck mass biopsy sonographic guided HISTORY: Left neck mass. FINDINGS: After explaining the procedure and answering all questions, the well-circumscribed heteroge neous hypoechoic mass adjacent to the left parotid tail was visualized. Sterile technique, buffered local anesthesia, sonographic guidance, and a posterior approach were use d to carefully advance a 20-gauge Franseen needle into the mass. Position confirmed with sonography. A total of 3 passes were made. Tissue submitted to pathology personnel for processing. Postprocedure imaging shows no evidence of complication. Patient tolerated the procedure well and was dismissed in good condition. IMPRESSION : Technically successful sonographic guided FNA left neck mass. Pathology pending.
[2020-04-29] MEDS ORDERED: Prevnar 13-Val Conj/PF 0.5 ML SYRINGE IM ONE (15:00)
== END 2020-04-29 11:05 | disposition home or self-care (01) ==
LOC: ULT 09:05
PROVIDERS: ATTEND Radiology Radiation Oncology
PROC: 07B23ZX Excision of Left Neck Lymphatic, Percutaneous Approach, Diagnostic (ICD-10-PCS; principal; 2020-04-29)
DX: C34.91 Malignant neoplasm of unspecified part of right bronchus or lung (principal); J44.9 Chronic obstructive pulmonary disease, unspecified; I12.9 Hypertensive chronic kidney disease with stage 1 through stage 4 chronic kidney disease, or unspecified chronic kidney disease; E11.22 Type 2 diabetes mellitus with diabetic chronic kidney disease; N18.9 Chronic kidney disease, unspecified; I25.10 Atherosclerotic heart disease of native coronary artery without angina pectoris; I48.91 Unspecified atrial fibrillation; F41.9 Anxiety disorder, unspecified; F32.9 Major depressive disorder, single episode, unspecified; K21.9 Gastro-esophageal reflux disease without esophagitis; R29.6 Repeated falls; K59.00 Constipation, unspecified; Z87.891 Personal history of nicotine dependence; Z95.0 Presence of cardiac pacemaker; Z95.5 Presence of coronary angioplasty implant and graft
CPT/HCPCS: 36415; 38505; 83880; 88173; 88184; 88305

== ENCOUNTER 2020-05-06 11:24 | Emergency (ER) | payer MEDICARE ==
[~2020-05-06 11:24] MED LIST: Iopamidol-370 76% 500 ML 1 ML ONE
[2020-05-06 12:24] LABS: ALT (SGPT) 19 U/L (8-55); AST (SGOT) 34 U/L (5-34); Albumin 3.3 g/dL (3.4-4.8); Alkaline Phosphatase 87 U/L (40-110); Anion Gap 14 mmol/L (10-20); BUN (Urea Nitrogen) 29 mg/dL (8.4-25.7); Bilirubin, Total 0.5 mg/dL (0.2-1.2); Calc. Creatinine Clearance 0 mL/min (70-130); Calcium 7.7 mg/dL (7.8-10.44); Carbon Dioxide 21 mmol/L (23-31); Chloride 109 mmol/L (98-107); Globulin 2.7 g/dL (2.4-3.5); Glucose 99 mg/dL (83-110); Potassium 3.5 mmol/L (3.5-5.1); Sodium 140 mmol/L (136-145)
--- NOTE | 2020-05-06 12:26 | RAD ---
EXAM: CHEST ONE VIEW HISTORY: Stage IV lung cancer. Low oxygen saturations. Dyspnea. COMPARISON: 05/03/2020 FINDINGS: Left subclavian AICD device and right-sided Mediport remains in place. Median sternotomy wires are ag ain seen. Cardiac silhouette is within normal limits. Increased bibasilar interstitial opacities are seen similar to prior exam as well as study on 04/01/2020 which may be attributed to mild chronic lung changes. There is no consolidation or pleural fluid identified. No other interval change. IMPRESSION: Stable chest with bibasilar interstitial opacities which may represent mild chronic lung changes
[2020-05-06 12:41] LABS: Hemoglobin 9.2 g/dL (14.0-18.0); Mean Corpuscular HGB CONC 34.1 g/dL (32.0-36.0); Mean Corpuscular Hemoglobin 29.1 pg (27.0-31.0); Mean Corpuscular Volume 85.3 fL (78.0-98.0); Red Blood Cell (RBC) Count 3.16 mill/uL (4.70-6.10); White Blood Cell (WBC) Count 0.6 thou/uL (4.8-10.8)
[2020-05-06 13:04] LABS: Band 9 % (5-11); Lymphocytes 60 % (21-51); MDiff Complete? YES; Mean Platelet Volume 10.9 fL (7.4-10.4); Monocytes 14 % (0-10); Platelet Count 40 thou/uL (130-400); Platelet Morphology Comment Appears Decreased; RBC Morphology Normal; Reactive Lymphocytes 17 % (0-10)
--- NOTE | 2020-05-06 13:05 | CT ---
CT ANGIOGRAM THORAX WITH IV CONTRAST AND 3-D RECONSTRUCTIONS CLINICAL INDICATION: Decreased oxygen saturation. History of lung cancer. COMPARISON: 03/31/2020 FINDINGS: Pulmonary arteries: No filling defects are seen in the pulmonary arteries to suggest a pulmonary embo abdulkadir. Aorta: Vascular calcifications are again seen in the thoracic aorta. Thoracic aorta is normal in kayode krista. Lungs: Again noted are emphysematous changes seen diffusely throughout the lungs bilaterally with the chronic interstitial fibrotic lung changes predominantly at each lung base and seen posteriorly in the mid and upper lung zones on the right. Previously seen right pleural effusion has resolved. No pl eural effusion is seen on today's examination. No consolidation is seen. Calcified granulomata are again seen. Mediastinum and dolores: Previously noted mediastinal and right hilar lymphadenopathy has resolved. Ther e is mild soft tissue prominence in the right hilar region which extends from the right hilar region and along the right mainstem bronchus. The soft tissue density in the right hilar region measu res 2.6 cm x 1.6 cm in greatest dimensions. Findings are likely related to residual lymphadenopathy. Several small less than 1 cm lymph nodes are again seen in the mediastinum. Mass eff ect and narrowing of the right main pulmonary artery is no longer visualized. A right-sided Mediport catheter is present. A left subclavian AICD device remains in place. Thyroid gland: Artifact through the region of thyroid gland, but no gross abnormality is appreciated. Osseous structures: Right glenohumeral osteoarthropathy with degenerative changes in the spine. No gray spicious lytic or sclerotic osseous lesions are identified. Chest wall: No abnormality visualized. Upper abdomen: Multiple hypodense cystic lesions involve visualized superior poles of each kidney lik dave to multiple bilateral renal cysts. Splenic granuloma is present IMPRESSION: 1. No CT evidence of a pulmonary embolus. 2. Significant interval improvement in mediastinal and right hilar lymphadenopathy with minimal resid ual soft tissue density in the right hilar region and extending along the right mainstem bronchus likely due to residual lymphadenopathy. Increase in number of lymph nodes measuring less than 1 cm th roughout the mediastinum which were also seen on prior exam. Narrowing of the right main pulmonary artery has resolved. 3. Evidence of COPD and chronic lung changes. No consolidation or pleural fluid is seen. 4. Bilateral renal cysts partially imaged.
== END 2020-05-06 15:00 | disposition home or self-care (01) ==
LOC: ERS 11:24
DX: R06.09 Other forms of dyspnea (principal); E11.9 Type 2 diabetes mellitus without complications; N40.0 Benign prostatic hyperplasia without lower urinary tract symptoms; I25.2 Old myocardial infarction; I11.0 Hypertensive heart disease with heart failure; M19.90 Unspecified osteoarthritis, unspecified site; I50.9 Heart failure, unspecified; J43.9 Emphysema, unspecified; Z87.891 Personal history of nicotine dependence; Z79.4 Long term (current) use of insulin; Z79.82 Long term (current) use of aspirin; Z79.51 Long term (current) use of inhaled steroids; Z79.899 Other long term (current) drug therapy
CPT/HCPCS: 71045; 71275; 80053; 83880; 84484; 85025; 93005; 94760; Q9967

== ENCOUNTER 2020-05-09 11:34 | Inpatient (IN) | payer MEDICARE ==
[2020-05-09] MEDS ORDERED: Magnesium 2 GM/50 ML BAG (IN WATER) ONE (11:54)
[2020-05-09] MEDS ORDERED: Dexamethasone 4 mg/ml Vial ONE (11:54)
--- NOTE | 2020-05-09 12:25 | RAD ---
XR Chest 1 View Portable HISTORY: Dyspnea COMPARISON: 05/06/2020 FINDINGS: Changes of median sternotomy are again seen. Left-sided AICD and right-sided Port-A-Cath re main place. Mild chronic changes again noted. No lobar consolidation, pneumothoraces or pleural effusions are identified. IMPRESSION: No radiographic evidence of acute cardiopulmonary process.
[2020-05-09] MEDS ORDERED: Cefepime 2 GM VIAL ONE (12:40)
[2020-05-09] MEDS ORDERED: Vancomycin 1 GM/200 ML BAG ONE (12:40)
[2020-05-09 13:02] LABS: SARS-CoV-2 NAA Rapid Test DETECTED (NotDetected)
[2020-05-09 13:32] LABS: Hemoglobin 8.8 g/dL (14.0-18.0); Mean Corpuscular HGB CONC 34.3 g/dL (32.0-36.0); Mean Corpuscular Hemoglobin 29.3 pg (27.0-31.0); Mean Corpuscular Volume 85.4 fL (78.0-98.0); Mean Platelet Volume 11.4 fL (7.4-10.4); Platelet Count 35 thou/uL (130-400); RBC Distribution Width 14.3 % (11.5-14.5); White Blood Cell (WBC) Count 4.1 thou/uL (4.8-10.8)
[2020-05-09 13:55] LABS: ALT (SGPT) 28 U/L (8-55); AST (SGOT) 64 U/L (5-34); Albumin 3.3 g/dL (3.4-4.8); Alkaline Phosphatase 89 U/L (40-110); Anion Gap 19 mmol/L (10-20); BUN (Urea Nitrogen) 23 mg/dL (8.4-25.7); Bilirubin, Total 0.6 mg/dL (0.2-1.2); CK (CPK) 159 U/L (30-200); Calc. Creatinine Clearance 0 mL/min (70-130); Calcium 7.6 mg/dL (7.8-10.44); Carbon Dioxide 17 mmol/L (23-31); Chloride 107 mmol/L (98-107); Globulin 2.6 g/dL (2.4-3.5); Glucose 88 mg/dL (83-110); Lipase 12 U/L (8-78); Potassium 3.5 mmol/L (3.5-5.1); Protein, Total 5.9 g/dL (5.8-8.1); Sodium 139 mmol/L (136-145)
[2020-05-09 14:03] LABS: Band 65 % (5-11); Differential Comment Immature Cell(s); Large Platelets SLIGHT; Lymphocytes 4 % (21-51); MDiff Complete? YES; Metamyelocyte 1 % (0-0); Monocytes 9 % (0-10); Neutrophil 12 % (42-75); Platelet Morphology Comment Appears Decreased; Polychromasia SLIGHT = 2-3 cells (100X) (0-2/hpf); Reactive Lymphocytes 7 % (0-10); Reflex for Review?? YES
[2020-05-09 15:06] LABS: Bacteria/HPF None Seen HPF (None Seen); Bilirubin Negative (Negative); Blood, Urine Trace (Negative); Clarity Clear (Clear); Glucose, Urine (Dipstick) Normal (Negative); Ketone, Urine Trace mg/dL (Negative); Leukocyte Negative Leu/uL (Negative); Nitrite Negative (Negative); Protein, Urine (Dipstick) 10 mg/dL (Neg-Trace); RBC/HPF None Seen HPF (0-3); Specific Gravity, Urine 1.011 (1.002-1.036); Squamous Epithelial None Seen HPF (0-3); Urobilinogen Normal mg/dL (Less than 2); WBC/HPF 0-3 HPF (0-3)
[2020-05-09] MEDS ORDERED: Acetaminophen 325 MG TAB PO PRN (15:42)
[2020-05-09] MEDS ORDERED: traMADol HCl 50 MG TAB PO PRN (15:46)
[2020-05-09] MEDS ORDERED: Loratadine 10 MG TAB PO PRN (15:49)
[2020-05-09] MEDS ORDERED: traZODone HCl 50 MG TAB PO PRN (15:49)
[2020-05-09] MEDS ORDERED: Dextrose 5% in Water 1,000 ML IV PRN (15:51)
[2020-05-09] MEDS ORDERED: Dextrose 50% Abboject 50 ML SYRINGE SLOW IVP PRN (15:51)
--- NOTE | 2020-05-09 16:15 | PDOC.HHP ---
Hospitalist HPI - History of Present Illness Shortness of breath History of Present Illness: Patient is a 79-year-old male with history of lung cancer recently diagnosed. He is followed at the oncology clinic. He developed shortness of breath about 5 days ago. He presented to the emergency department here 3 days ago. He was treated and released at that time. He did have a CTA and chest x-ray which did not reveal any evidence of Covid type findings. He subsequently got worse and returned to the emergency department today. He has not had significant fever. Has had very minimal cough. Denies any chest pain. ED Course: The emergency room the patient was somewhat hypoxic. He was started on a nonrebreather prior to arrival. His pulse was 135 and his respirations were 34 with an O2 sat of 90%. He had to step up to BiPAP. He received aspirin 324 mg, Lovenox 1 mg/kg, Decadron 10 mg IV x1, magnesium and vancomycin and cefepime. Hospitalist ROS - Review of Systems Constitutional: reports: fever (Minimal), weakness, malaise. denies: chills Respiratory: reports: cough (Modest), shortness of breath, SOB with excertion. denies: pleuritic pain, sputum Cardiovascular: denies: chest pain, palpitations, orthopnea Gastrointestinal: denies: nausea, vomiting, abdominal pain, diarrhea All other systems reviewed; all pertinent +/- noted in HPI/Subj - Medication Medications: NovoLIN N NPH U-100 Insulin cartridge : Strength - 100 unit/mL : SUBCUTANEOUS Patient Dose: Subcutaneous See Notes.35UNITS AM; 30UNITS PM. NovoLOG Flexpen U-100 Insulin insulin pen : Strength - 100 unit/mL (3 mL) : SUBCUTANEOUS Patient Dose: * Subcutaneous As Needed.SLIDING SCALE NEEDED. aspirin oral tablet : Strength - 81 mg : ORAL Patient Dose: 81 mg Oral once a day. rOPINIRole tablet : Strength - 0.25 mg : ORAL Patient Dose: 0.25 mg Oral once a day (in the evening). carvedilol tablet : Strength - 3.125 mg : ORAL Patient Dose: 3.125 mg Oral 2 times a day. Mucinex DM tablet extended release 12 hr : Strength - 1,200 mg-60 mg : ORAL Patient Dose: UNK.DOSE UNKNOWN. dicyclomine oral tablet : Strength - 20 mg : ORAL Patient Dose: 20 mg Oral once a day. torsemide oral tablet : Strength - 20 mg : ORAL Patient Dose: 40 mg Oral once a day (in the morning). glipiZIDE tablet : Strength - 10 mg : ORAL Patient Dose: 10 mg Oral once a day. gabapentin capsule : Strength - 300 mg : ORAL Patient Dose: * See Notes.300MG AM; 600MG PM. omeprazole capsule,delayed release(DR/EC) : Strength - 40 mg : ORAL Patient Dose: 40 mg Oral once a day (in the morning). tamsulosin capsule : Strength - 0.4 mg : ORAL Patient Dose: 2 tab(s) Oral once a day (in the evening). potassium chloride oral tablet extended release : Strength - 10 mEq : ORAL Patient Dose: 10 mEq Oral once a day (in the morning). levocetirizine tablet : Strength - 5 mg : ORAL Patient Dose: 5 mg Oral once a day (in the evening). meloxicam tablet : Strength - 15 mg : ORAL Patient Dose: 15 mg Oral once a day. rosuvastatin tablet : Strength - 20 mg : ORAL Patient Dose: 20 mg Oral once a day. famotidine oral tablet : Strength - 20 mg : ORAL Patient Dose: 20 mg Oral 2 times a day. traMADol tablet : Strength - 50 mg : ORAL Patient Dose: 50 mg Oral As Needed.2 TIMES A DAY NEEDED. diclofenac sodium topical gel : Strength - 1 % : TOPICAL Patient Dose: UNK.DOSE UNKNOWN. Symbicort HFA aerosol inhaler : Strength - 160 mcg-4.5 mcg/actuation : INHALATION Patient Dose: UNK.DOSE UNKNOWN. Hospitalist History - Past Medical History Source: patient, old records Cardiac: reports: CAD, CHF, HTN, ME, Hyperlipidemia Pulmonary: reports: COPD, emphysema Gastrointestinal: reports: Irritable bowel disease Heme/Onc: reports: Cancer (Lung cancer) Psych: reports: Depression Musculoskeletal: reports: Osteoarthritis Endocrine: reports: Diabetes - Past Surgical History Past Surgical History: reports: CABG, Total Knee Replacement (left knee), Other (Back surgery) - Family History Family History: reports: cancer, cardiac disorder - Social History Smoking Status: Former smoker Alcohol: reports: None (quit 20 years ago) Drugs: reports: none Living Situation: With Family - Exam General Appearance: ill appearing General - other findings: BiPAP, tachypneic Eye: PERRL Heart: RRR, no murmur, no gallops, no rubs, normal peripheral pulses Respiratory: no wheezes, no ronchi Respiratory - other findings: Generally diminished. Modest scattered rales Gastrointestinal: soft, non-tender, non-distended, normal bowel sounds, no palpable masses, no hepatomegaly, no splenomegaly, no bruit Extremities: no cyanosis, no clubbing, no edema Skin: normal turgor Neurological: no focal deficits Musculoskeletal: generalized weakness Psychiatric: normal affect, normal behavior Hospitalist Results - Labs Result Diagrams: 05/09/20 13:01 05/09/20 12:30 Lab results: WBC 4.1 thou/uL (4.8-10.8) L 05/09/20 13:01 Hgb 8.8 g/dL (14.0-18.0) L 05/09/20 13:01 Hct 25.6 % (42.0-52.0) L 05/09/20 13:01 MCV 85.4 fL (78.0-98.0) 05/09/20 13:01 Plt Count 35 thou/uL (130-400) L 05/09/20 13:01 Band Neuts % (Manual) 65 % (5-11) H 05/09/20 13:01 Sodium 139 mmol/L (136-145) 05/09/20 12:30 Potassium 3.5 mmol/L (3.5-5.1) 05/09/20 12:30 Chloride 107 mmol/L (98-107) 05/09/20 12:30 Carbon Dioxide 17 mmol/L (23-31) L 05/09/20 12:30 BUN 23 mg/dL (8.4-25.7) 05/09/20 12:30 Creatinine 1.50 mg/dL (0.7-1.3) H 05/09/20 12:30 Glucose 88 mg/dL (83-110) 05/09/20 12:30 Lactic Acid 3.0 mmol/L (0.5-2.2) H 05/09/20 12:30 Calcium 7.6 mg/dL (7.8-10.44) L 05/09/20 12:30 Total Bilirubin 0.6 mg/dL (0.2-1.2) 05/09/20 12:30 AST 64 U/L (5-34) H 05/09/20 12:30 ALT 28 U/L (8-55) 05/09/20 12:30 Alkaline Phosphatase 89 U/L (40-110) 05/09/20 12:30 Creatine Kinase 159 U/L (30-200) 05/09/20 12:30 Troponin I 0.025 ng/mL (< 0.028) 05/09/20 12:30 B-Natriuretic Peptide 148.3 pg/mL (0-100) H 05/09/20 13:01 Serum Total Protein 5.9 g/dL (5.8-8.1) 05/09/20 12:30 Albumin 3.3 g/dL (3.4-4.8) L 05/09/20 12:30 Lipase 12 U/L (8-78) 05/09/20 12:30 Urine Ketones Trace mg/dL (Negative) A 05/09/20 14:07 Urine Blood Trace (Negative) A 05/09/20 14:07 Urine Nitrite Negative (Negative) 05/09/20 14:07 Ur Leukocyte Esterase Negative Junior/uL (Negative) 05/09/20 14:07 Urine RBC None Seen HPF (0-3) 05/09/20 14:07 Urine WBC 0-3 HPF (0-3) 05/09/20 14:07 Ur Squamous Epith Cells None Seen HPF (0-3) 05/09/20 14:07 Urine Bacteria None Seen HPF (None Seen) 05/09/20 14:07 Hospitalist H&P A/P - Problem (1) Acute respiratory failure with hypoxia Code(s): J96.01 - ACUTE RESPIRATORY FAILURE WITH HYPOXIA Status: Acute (2) Pneumonia due to COVID-19 virus Code(s): U07.1 - COVID-19; J12.82 - PNEUMONIA DUE TO CORONAVIRUS DISEASE 2019 Status: Acute (3) COPD (chronic obstructive pulmonary disease) Status: Acute (4) Diabetes mellitus type 2 in nonobese Code(s): E11.9 - TYPE 2 DIABETES MELLITUS WITHOUT COMPLICATIONS Status: Acute (5) Hypertension Code(s): I10 - ESSENTIAL (PRIMARY) HYPERTENSION Status: Acute (6) Hyperlipidemia Code(s): E78.5 - HYPERLIPIDEMIA, UNSPECIFIED Status: Acute (7) BPH (benign prostatic hyperplasia) Code(s): N40.0 - BENIGN PROSTATIC HYPERPLASIA WITHOUT LOWER URINRY TRACT SYMP Status: Acute (8) Small cell lung cancer Code(s): C34.90 - MALIGNANT NEOPLASM OF UNSP PART OF UNSP BRONCHUS OR LUNG Status: Acute - Plan Plan: Acute hypoxic respiratory failure: Secondary to underlying COVID-19 pneumonia and likely some COPD exacerbation. Patient had a CTA on 05/06/2020. At that time he was having similar shortness of breath although it has gotten worse. His findings were not impressive with respect to Covid findings. He does have extensive emphysematous changes. His lung cancer actually looks somewhat improved. Would have suspected more if the respiratory failure was all related to Covid. Treat all underlying possibilities. His D-dimer is elevated but his CTA was negative on the . COVID-19 pneumonia: Suspect the patient's symptoms started about 5 days ago. Likely a candidate for remdesivir. We will discuss with ID. Decadron 6 mg IV daily. Vitamin D, vitamin C, zinc. With the elevated D-dimer we will give enhanced dosing of the Lovenox. Obtain inflammatory markers. COPD: Suspect a significant component of exacerbation given the limited findings on his CT scan of the chest on 05/06/2020. He will be receiving the Decadron. Continue with kay heredias/MDIs. Continue home maintenance medications. Do not believe he has an indication for antibiotics for the Covid however will cover him due to the COPD exacerbation. Diabetes mellitus type 2: Diabetic diet Accu-Cheks with sliding scale insulin. Resume home medications. Hypertension: Resume home meds. Hyperlipidemia: Resume home medications. Small cell lung cancer: Believe the patient is on carboplatin and [employer]. He is not neutropenic. Discussed with Eileen Cruz to make them aware the patient is here. BPH: Resume tamsulosin.
[2020-05-09 16:22] LABS: Troponin I 0.071 ng/mL (< 0.028)
--- NOTE | 2020-05-09 16:54 | PDOC.EVN ---
Event Note - Event Note Event Note: Discussed case with Dr. Palomares [facility]. Because the patient is on BiPAP there was not an indication for Remdesivir. Original study did not show benefit in patients who were requiring BiPAP level of oxygenation.
[2020-05-09 18:12] VITALS: BMI 23.9
[2020-05-09 18:59] LABS: Troponin I 0.061 ng/mL (< 0.028)
[2020-05-09] MEDS: Mometasone 200 MCG/Formoterol 5 MCG 120 PUFF INHALER INH SCH (19:18)
[2020-05-09] MEDS: Carvedilol 3.125 MG TAB PO SCH (19:18)
[2020-05-09] MEDS: guaiFENesin/DM ER PO SCH (21:14)
[2020-05-09] MEDS: Gabapentin 300 MG CAP PO SCH (21:15)
[2020-05-09] MEDS: rOPINIRole HCl 0.25 MG TAB PO SCH (21:15)
[2020-05-09] MEDS: Atorvastatin Calcium 20 MG TAB PO SCH (21:15)
[2020-05-09] MEDS ORDERED: HumaLOG 300 UNITS/3 ML VIAL SC PRN (23:14)
[2020-05-10] MEDS: Cefepime 1 GM in Sodium Chloride 0.9% 100 ML IVPB SCH ×2 (01:22→11:28)
[2020-05-10] MEDS: Mometasone 200 MCG/Formoterol 5 MCG 120 PUFF INHALER INH SCH ×2 (05:35→17:37)
[2020-05-10] MEDS: HumaLOG 300 UNITS/3 ML VIAL SC PRN ×4 (05:36→20:44)
[2020-05-10 05:45] LABS: Anion Gap 18 mmol/L (10-20); BUN (Urea Nitrogen) 37 mg/dL (8.4-25.7); Calc. Creatinine Clearance 38 mL/min (70-130); Calcium 7.4 mg/dL (7.8-10.44); Carbon Dioxide 20 mmol/L (23-31); Glucose 293 mg/dL (83-110); Potassium 3.5 mmol/L (3.5-5.1)
[2020-05-10 06:04] LABS: Chloride 107 mmol/L (98-107); Sodium 141 mmol/L (136-145)
[2020-05-10 06:40] LABS: Hemoglobin 8.2 g/dL (14.0-18.0); Mean Corpuscular HGB CONC 33.8 g/dL (32.0-36.0); Mean Corpuscular Hemoglobin 28.8 pg (27.0-31.0); Mean Corpuscular Volume 85.2 fL (78.0-98.0); Mean Platelet Volume 11.9 fL (7.4-10.4); Platelet Count 47 thou/uL (130-400); RBC Distribution Width 14.5 % (11.5-14.5); Red Blood Cell (RBC) Count 2.85 mill/uL (4.70-6.10); White Blood Cell (WBC) Count 4.3 thou/uL (4.8-10.8)
[2020-05-10 07:02] LABS: Band 25 % (5-11); Lymphocytes 11 % (21-51); MDiff Complete? YES; Monocytes 9 % (0-10); Myelocyte 1 % (0-0); Neutrophil 54 % (42-75); Platelet Morphology Comment Appears Decreased
[2020-05-10] MEDS: Carvedilol 3.125 MG TAB PO SCH ×2 (07:27→17:29)
[2020-05-10] MEDS: Potassium Chloride 10 MEQ TAB PO SCH (07:27)
[2020-05-10] MEDS: Ascorbic Acid 500 mg Chewable Tablet PO SCH (07:27)
[2020-05-10] MEDS: Aspirin 81 mg Enteric Coated Tablet PO SCH (07:27)
[2020-05-10] MEDS: Cholecalciferol 1,000 UNITS (25 MCG) TAB PO SCH (07:28)
[2020-05-10] MEDS: Enoxaparin Sodium 40 MG/0.4 ML SYRINGE SC SCH (07:28)
[2020-05-10] MEDS: Gabapentin 300 MG CAP PO SCH ×3 (07:28→20:39)
[2020-05-10] MEDS: Zinc Sulfate 220 MG CAP PO SCH (07:30)
[2020-05-10] MEDS: Tamsulosin HCl 0.4 MG CAP PO SCH (07:30)
[2020-05-10] MEDS: Sodium Chloride 0.45% 1,000 ML IV SCH (08:08)
[2020-05-10] MEDS: guaiFENesin/DM ER PO SCH ×2 (08:09→20:39)
[2020-05-10] MEDS ORDERED: Torsemide 20 MG TAB PO SCH (09:00)
--- NOTE | 2020-05-10 09:45 | PDOC.HOSPP ---
- Subjective Encounter Date: 05/10/20 Encounter Time: 09:30 Subjective: still on bipap, is breathing better no chest pain or palp has not had much to eat - Objective Vital Signs & Weight: Vital Signs (12 hours) Temp Pulse Resp BP Pulse Ox 05/10/20 08:00 98.0 F 77 26 H 133/65 100 05/10/20 07:27 100 05/10/20 06:00 97.5 F L 75 14 117/58 L 97 05/10/20 04:00 97.8 F 70 16 110/56 L 97 05/10/20 02:00 97.7 F 74 16 106/60 98 05/10/20 01:55 73 05/09/20 23:45 98.8 F 70 16 106/57 L 100 Weight Weight 181 lb 11.2 oz I&O: 05/09/20 05/10/20 05/11/20 06:59 06:59 06:59 Intake Total 240 Output Total 450 Balance -210 Result Diagrams: 05/10/20 04:57 05/10/20 04:57 Additional Labs: Accuchecks 05/10/20 05:24 POC Glucose 253 H Hospitalist ROS - Medication Medications: Active Medications Generic Name Dose Route Start Last Admin Trade Name Freq PRN Reason Stop Dose Admin Acetaminophen 650 mg 05/09/20 15:42 05/10/20 05:37 Acetaminophen 325 Mg Tab PO 650 mg Q4H PRN Administration Headache/Fever/Mild Pain (1-3) Ascorbic Acid 1,000 mg 05/10/20 09:00 05/10/20 07:27 Ascorbic Acid 500 Mg Chewable Tablet PO 1,000 mg DAILY RAMIRO Administration Aspirin 81 mg 05/10/20 09:00 05/10/20 07:27 Aspirin 81 Mg Enteric Coated Tablet PO 81 mg DAILY RAMIRO Administration Atorvastatin Calcium 20 mg 05/09/20 21:00 05/09/20 21:15 Atorvastatin Calcium 20 Mg Tab PO 20 mg HS RAMIRO Administration Carvedilol 3.125 mg 05/09/20 17:00 05/10/20 07:27 Carvedilol 3.125 Mg Tab PO 3.125 mg BID-WM RAMIRO Administration Cholecalciferol 1,000 units 05/10/20 09:00 05/10/20 07:28 Cholecalciferol 1,000 Units (25 Mcg) Tab PO 1,000 units DAILY RAMIRO Administration Enoxaparin Sodium 40 mg 05/10/20 09:00 05/10/20 07:28 Enoxaparin Sodium 40 Mg/0.4 Ml Syringe SC Not Given 0900 RAMIRO Gabapentin 300 mg 05/09/20 21:00 05/10/20 07:28 Gabapentin 300 Mg Cap PO 300 mg TID RAMIRO Administration Guaifenesin/Dextromethorphan 2 tab 05/09/20 21:00 05/10/20 08:09 Guaifenesin/Dm Er PO 2 tab Q12HR RAMIRO Administration Cefepime HCl 1 gm/ Sodium 100 mls @ 200 mls/hr 05/10/20 01:00 05/10/20 01:22 Chloride IVPB 100 mls 0100,1300 RAMIRO Administration Sodium Chloride 1,000 mls @ 50 mls/hr 05/10/20 07:45 05/10/20 08:08 1/2 Normal Saline IV 1,000 mls .Q20H RAMIRO Administration Insulin Human Lispro 0 units 05/09/20 15:51 05/10/20 05:36 Humalog 300 Units/3 Ml Vial SC 4 unit .MILD SLIDING SCALE PRN Administration Mild Correctional Scale Mometasone Furoate/Formoterol Fumar 0 puff 05/09/20 18:30 05/10/20 05:35 Mometasone 200 Mcg/Formoterol 5 Mcg 120 Puff Inhaler INH 1 puff BID-RT RAMIRO Administration Pantoprazole Sodium 40 mg 05/10/20 09:00 05/10/20 07:30 Pantoprazole 40 Mg Tab PO 40 mg DAILY RAMIRO Administration Potassium Chloride 10 meq 05/10/20 08:00 05/10/20 07:27 Potassium Chloride 10 Meq Tab PO 10 meq QAM-WM RAMIRO Administration Ropinirole HCl 0.25 mg 05/09/20 21:00 05/09/20 21:15 Ropinirole Hcl 0.25 Mg Tab PO 0.25 mg HS RAMIRO Administration Tamsulosin HCl 0.4 mg 05/10/20 09:00 05/10/20 07:30 Tamsulosin Hcl 0.4 Mg Cap PO 0.4 mg DAILY RAMIRO Administration Zinc Sulfate 220 mg 05/10/20 09:00 05/10/20 07:30 Zinc Sulfate 220 Mg Cap PO 220 mg DAILY RAMIRO Administration - Exam General Appearance: awake alert Eye: PERRL, anicteric sclera ENT: no oropharyngeal lesions, dry oral mucosa Neck: supple, no JVD Heart: RRR, no murmur Respiratory: no wheezes, no rales, rhonchi Gastrointestinal: soft, non-tender, non-distended, normal bowel sounds Extremities: no cyanosis, no edema Neurological: cranial nerve grossly intact, no focal deficits Psychiatric: A&O x 3 Hosp A/P (1) Acute respiratory failure with hypoxia Code(s): J96.01 - ACUTE RESPIRATORY FAILURE WITH HYPOXIA Status: Acute (2) COPD (chronic obstructive pulmonary disease) Status: Acute Qualifiers: COPD type: COPD with acute exacerbation Qualified Code(s): J44.1 - Chronic obstructive pulmonary disease with (acute) exacerbation (3) Pneumonia due to COVID-19 virus Code(s): U07.1 - COVID-19; J12.82 - PNEUMONIA DUE TO CORONAVIRUS DISEASE 2019 Status: Acute (4) Diabetes mellitus type 2 in nonobese Code(s): E11.9 - TYPE 2 DIABETES MELLITUS WITHOUT COMPLICATIONS Status: [facility] [place] onic (5) Hyperlipidemia Code(s): E78.5 - HYPERLIPIDEMIA, UNSPECIFIED Status: Chronic Qualifiers: Hyperlipidemia type: unspecified Qualified Code(s): E78.5 - Hyperlipidemia, unspecified (6) Hypertension Code(s): I10 - ESSENTIAL (PRIMARY) HYPERTENSION Status: Chronic Qualifiers: Hypertension type: essential hypertension Qualified Code(s): I10 - Essential (primary) hypertension (7) Small cell lung cancer Code(s): C34.90 - MALIGNANT NEOPLASM OF UNSP PART OF UNSP BRONCHUS OR LUNG Status: Chronic (8) BPH (benign prostatic hyperplasia) Code(s): N40.0 - BENIGN PROSTATIC HYPERPLASIA WITHOUT LOWER URINRY TRACT SYMP Status: Chronic Qualifiers: Lower urinary tract symptom presence: symptoms absent Qualified Code(s): N40.0 - Benign prostatic hyperplasia without lower urinary tract symptoms (9) ANIKET (acute kidney injury) Code(s): N17.9 - ACUTE KIDNEY FAILURE, UNSPECIFIED Status: Acute (10) Pancytopenia Code(s): D61.818 - OTHER PANCYTOPENIA Status: Acute - Plan may dc bipap and place him on nasal canula as tolerated continue aspirin, coreg, lipitor, cefepime, dexamethasone, alb inh, protonix, flomax, requip, neurontin encourage po intake dc demadex, gentle iv fluids for aniket PT eval hemostable
[2020-05-10] MEDS ORDERED: Ondansetron PF 4 MG/2 ML Vial IVP PRN (15:00)
[2020-05-10] MEDS: Dexamethasone 6 MG in Sodium Chloride 0.9% 50 ML IVPB SCH (17:29)
[2020-05-10] MEDS: rOPINIRole HCl 0.25 MG TAB PO SCH (20:39)
[2020-05-10] MEDS: Atorvastatin Calcium 20 MG TAB PO SCH (20:39)
[2020-05-10] MEDS ORDERED: Simethicone Chewable 80 MG TAB PO SCH (23:00)
[2020-05-11] MEDS: Cefepime 1 GM in Sodium Chloride 0.9% 100 ML IVPB SCH ×2 (00:56→11:52)
[2020-05-11] MEDS: HumaLOG 300 UNITS/3 ML VIAL SC PRN ×2 (05:35→17:50)
[2020-05-11] MEDS: Mometasone 200 MCG/Formoterol 5 MCG 120 PUFF INHALER INH SCH ×2 (07:56→21:13)
[2020-05-11] MEDS: Aspirin 81 mg Enteric Coated Tablet PO SCH (07:58)
[2020-05-11] MEDS: Tamsulosin HCl 0.4 MG CAP PO SCH (07:58)
[2020-05-11] MEDS: Gabapentin 300 MG CAP PO SCH ×3 (07:58→21:13)
[2020-05-11] MEDS: Zinc Sulfate 220 MG CAP PO SCH (07:58)
[2020-05-11] MEDS: Carvedilol 3.125 MG TAB PO SCH ×2 (07:59→17:50)
[2020-05-11] MEDS: Potassium Chloride 10 MEQ TAB PO SCH (07:59)
[2020-05-11] MEDS: Ascorbic Acid 500 mg Chewable Tablet PO SCH (07:59)
[2020-05-11] MEDS: Sodium Chloride 0.45% 1,000 ML IV SCH (07:59)
[2020-05-11] MEDS: guaiFENesin/DM ER PO SCH ×2 (08:00→21:13)
[2020-05-11] MEDS: Cholecalciferol 1,000 UNITS (25 MCG) TAB PO SCH (08:00)
[2020-05-11] MEDS ORDERED: Lorazepam 2 MG/ML VIAL SLOW IVP PRN (09:40)
[2020-05-11] MEDS: Enoxaparin Sodium 40 MG/0.4 ML SYRINGE SC SCH (09:47)
[2020-05-11] MEDS ORDERED: Insulin Glargine 20 UNITS in Pre-Filled Syringe 1 EACH SC SCH (10:15)
[2020-05-11] MEDS: Morphine 2 MG/ML VIAL SLOW IVP PRN ×2 (10:53→16:55)
--- NOTE | 2020-05-11 11:10 | CON ---
DATE OF CONSULTATION: 05/11/2020 REASON FOR CONSULTATION: COVID-19 pneumonia with acute respiratory failure. HISTORY OF PRESENT ILLNESS: Mr. Hardy is an 79-year-old male, who has lung cancer. He has been short of breath for the last 5 days. He can to the emergency room 3 days ago with shortness of breath. Apparently, he did not have a COVID test done, but came 2 days ago and was COVID positive and subsequently been admitted. He has progressed to the point, where he needs BiPAP. He is claustrophobic and does not want to leave his mask on. He does have a DNAR on the chart. PAST MEDICAL HISTORY: Lung cancer, diabetes mellitus, hyperlipidemia, myocardial infarction, hypertension, congestive heart failure, COPD, emphysema, depression, and osteoarthritis. PAST SURGICAL HISTORY: Coronary artery bypass grafting surgery, total knee replacement, and back surgery. FAMILY MEDICAL HISTORY: Remarkable for cancer and cardiac disorder. SOCIAL HISTORY: Former smoker. Does not consume alcohol. MEDICATIONS: Prior to admission, these were reviewed and are listed on the home medication section on the chart. Current inpatient medications also reviewed and listed under active medications section in chart. Of note, the patient is on; 1. Cefepime. 2. Dexamethasone. 3. Enoxaparin. REVIEW OF SYSTEMS: Difficult to obtain because the patient is in such distress. PHYSICAL EXAMINATION: VITAL SIGNS: Temperature 98.3, pulse 110, respirations 20, O2 saturation 92% on 6 L, and blood pressure 142/77. GENERAL: The patient appears generally uncomfortable on the BiPAP. HEENT: Remarkable for alopecia. NECK: No adenopathy or JVD. LUNGS: Crackles in both bases. CARDIOVASCULAR: S1 and S2. Tachycardic. ABDOMEN: Soft and nontender. EXTREMITIES: No clubbing, cyanosis, or edema. DIAGNOSTIC DATA: His chest x-ray was reviewed and shows hyperinflation. A CT from 05/06/2020 shows severe emphysematous changes. 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 At that time, he did not have any infiltrates and his x-ray currently does not show much in the way of changes. ASSESSMENT: 1. COVID infection. 2. Acute on chronic respiratory failure. 3. Chronic obstructive pulmonary disease/emphysema. 4. Lung cancer. PLAN: This patient will not do well. He is DNAR. I would focus on continuing with current medicines and doing the BiPAP if at all possible. He may need Ativan and morphine to help ameliorate some of his symptoms. Job ID: [id number]
--- NOTE | 2020-05-11 12:24 | PQF ---
CLINICAL DOCUMENTATION CLARIFICATION FORM: Dear Dr. CARMELLA PEREZ Date / Time: 05-11-20 Please exercise your independent, professional judgment in responding to the clarification form. Clinical indicators are provided on the bottom of this form for your review. Please check appropriate box(es): [ ] Sepsis due to: [ ] Severe sepsis with associated acute organ dysfunction: [ ] Acute Respiratory Failure [ ] Acute Kidney injury w/o ATN [ ] Additional/Other: please specify: [ x] Localized infection without sepsis [ ] Other diagnosis [ ] Unable to determine In addition, please specify: Present on Admission (POA): [ ] Yes [ ] No [ ] Unable to determine For continuity of documentation, please document condition throughout progress notes and discharge summary. Thank You. To be completed by CDI/Coding staff for physician review: CLINICAL INDICATORS - SIGNS / SYMPTOMS / LABS / RESULTS AND LOCATION IN MR: ER DX 05-09-20: COVID PNEUMONIA, HYPOXIA, LUNG CANCER, RESPIRATORY DISTRESS ER NOTES 05-09-20: TEMP: 100.2 ER NOTES 05-09-20 PULSE: 135, 139, 132, 121 ER NOTES 05-09-20 O2 SAT: 90% ON NONREBREATHER, BIPAP WBC 05-09-20: 4.1 05-10-20: 4.3 BANDS 05-09-20: 65% 05-10-20: 25% LACTIC ACID 05-09-20: 3.[address] SANDHU 05-10-20: ACUTE RESPIRATORY FAILURE WITH HYPOXIA, ACUTE COPD, PNEUMONIA DUE TO COVID 19 VIRUS, SMALL CELL CANCER, ANIKET, PANCYTOPENIA RISK FACTORS / RESULTS AND LOCATION IN MR: PN DR. SANDHU 05-10-20: ACUTE RESPIRATORY FAILURE WITH HYPOXIA, ACUTE COPD, PNEUMONIA DUE TO COVID 19 VIRUS, SMALL CELL CANCER, ANIKET, PANCYTOPENIA TREATMENTS / RESULTS AND LOCATION IN MR: ER NOTES 05-09-20: VANCOMYCIN IV, CEFEPIME IV, MAGNESIUM IV, NS IVF CDS Signature: Neeru Lemuel Phone #: [phone] Date: 05-11-20 This is a permanent part of the Medical Record [facility]
[2020-05-11 12:35] LABS: Anion Gap 18 mmol/L (10-20); BUN (Urea Nitrogen) 43 mg/dL (8.4-25.7); Calc. Creatinine Clearance 40 mL/min (70-130); Calcium 7.8 mg/dL (7.8-10.44); Carbon Dioxide 21 mmol/L (23-31); Chloride 107 mmol/L (98-107); Glucose 327 mg/dL (83-110); Potassium 3.9 mmol/L (3.5-5.1); Sodium 142 mmol/L (136-145)
[2020-05-11] MEDS: Lorazepam 2 MG/ML VIAL SLOW IVP PRN ×2 (14:20→21:55)
--- NOTE | 2020-05-11 15:44 | PDOC.HOSPP ---
- Subjective Encounter Date: 05/11/20 Subjective: Patient has had little bit of difficulty leaving his BiPAP mask on. He had hypoxia requiring the transition to the BiPAP but then gets a little anxious and wants to pull it off. He has received a little anxiolytic and unfortunately is required some soft wrist restraints. When I see the patient he indicates he is doing okay and understands he needs to try to tolerate the mask. - Objective Vital Signs & Weight: Vital Signs (12 hours) Temp Pulse Resp BP Pulse Ox 05/11/20 14:30 105 H 28 H 130/63 93 L 05/11/20 12:00 97.9 F 105 H 28 H 156/75 H 92 L 05/11/20 10:05 102 H 31 H 148/71 H 94 L 05/11/20 08:00 98.3 F 110 H 28 H 142/77 H 92 L 05/11/20 07:03 91 L 05/11/20 05:45 88 20 125/60 91 L 05/11/20 03:48 98.1 F 86 20 128/60 91 L Weight Admit Weight 181 lb 11.2 oz Weight 181 lb 11.2 oz I&O: 05/10/20 05/11/20 05/12/20 06:59 06:59 06:59 Intake Total 240 1720 Output Total 450 2675 Balance -210 -955 Result Diagrams: 05/10/20 04:57 05/11/20 11:58 Additional Labs: Accuchecks 05/11/20 05/11/20 05/10/20 11:05 05:29 16:52 POC Glucose 307 H 396 H 300 H Hospitalist ROS - Medication Medications: Active Medications Generic Name Dose Route Start Last Admin Trade Name Freq PRN Reason Stop Dose Admin Acetaminophen 650 mg 05/09/20 15:42 05/10/20 05:37 Acetaminophen 325 Mg Tab PO 650 mg Q4H PRN Administration Headache/Fever/Mild Pain (1-3) Ascorbic Acid 1,000 mg 05/10/20 09:00 05/11/20 07:59 Ascorbic Acid 500 Mg Chewable Tablet PO 1,000 mg DAILY RAMIRO Administration Aspirin 81 mg 05/10/20 09:00 05/11/20 07:58 Aspirin 81 Mg Enteric Coated Tablet PO 81 mg DAILY RAMIRO Administration Atorvastatin Calcium 20 mg 05/09/20 21:00 05/10/20 20:39 Atorvastatin Calcium 20 Mg Tab PO 20 mg HS RAMIRO Administration Carvedilol 3.125 mg 05/09/20 17:00 05/11/20 07:59 Carvedilol 3.125 Mg Tab PO 3.125 mg BID-WM RAMIRO Administration Cholecalciferol 1,000 units 05/10/20 09:00 05/11/20 08:00 Cholecalciferol 1,000 Units (25 Mcg) Tab PO 1,000 units DAILY RAMIRO Administration Enoxaparin Sodium 40 mg 05/10/20 09:00 05/11/20 09:47 Enoxaparin Sodium 40 Mg/0.4 Ml Syringe SC Not Given 0900 RAMIRO Gabapentin 300 mg 05/09/20 21:00 05/11/20 14:19 Gabapentin 300 Mg Cap PO Not Given TID RAMIRO Guaifenesin/Dextromethorphan 2 tab 05/09/20 21:00 05/11/20 08:00 Guaifenesin/Dm Er PO 2 tab Q12HR RAMIRO Administration Dexamethasone 6 mg/ Sodium 50.6 mls @ 100 mls/hr 05/10/20 17:00 05/10/20 17:29 Chloride IVPB 50.6 mls 1700 RAMIRO Administration Cefepime HCl 1 gm/ Sodium 100 mls @ 200 mls/hr 05/10/20 01:00 05/11/20 11:52 Chloride IVPB 100 mls 0100,1300 RAMIRO Administration Sodium Chloride 1,000 mls @ 50 mls/hr 05/10/20 07:45 05/11/20 07:59 1/2 Normal Saline IV 1,000 mls .Q20H RAMIRO Administration Insulin Human Lispro 0 units 05/09/20 15:51 05/11/20 05:35 Humalog 300 Units/3 Ml Vial SC 6 unit .MILD SLIDING SCALE PRN Administration Mild Correctional Scale Lorazepam 0.5 mg 05/11/20 09:40 05/11/20 09:54 Lorazepam 2 Mg/Ml Vial SLOW IVP 0.5 mg Q6H PRN Administration Anxiety/Agitation Lorazepam 2 mg 05/11/20 10:34 05/11/20 14:20 Lorazepam 2 Mg/Ml Vial SLOW IVP 2 mg Q4H PRN Administration Anxiety/Agitation Mometasone Furoate/Formoterol Fumar 0 puff 05/09/20 18:30 05/11/20 07:56 Mometasone 200 Mcg/Formoterol 5 Mcg 120 Puff Inhaler INH 2 puff BID-RT RAMIRO Administration Morphine Sulfate 2 mg 05/11/20 10:33 05/11/20 10:53 Morphine 2 Mg/Ml Vial SLOW IVP 2 mg Q1H PRN Administration dyspnea Ondansetron HCl 4 mg 05/10/20 15:00 05/10/20 21:38 Ondansetron Pf 4 Mg/2 Ml Vial IVP 4 mg Q6H PRN Administration Nausea/Vomiting Pantoprazole Sodium 40 mg 05/10/20 09:00 05/11/20 07:58 Pantoprazole 40 Mg Tab PO 40 mg DAILY RAMIRO Administration Potassium Chloride 10 meq 05/10/20 08:00 05/11/20 07:59 Potassium Chloride 10 Meq Tab PO 10 meq QAM-WM RAMIRO Administration Ropinirole HCl 0.25 mg 05/09/20 21:00 05/10/20 20:39 Ropinirole Hcl 0.25 Mg Tab PO 0.25 mg HS RAMIRO Administration Tamsulosin HCl 0.4 mg 05/10/20 09:00 05/11/20 07:58 Tamsulosin Hcl 0.4 Mg Cap PO 0.4 mg DAILY RAMIRO Administration Zinc Sulfate 220 mg 05/10/20 09:00 05/11/20 07:58 Zinc Sulfate 220 Mg Cap PO 220 mg DAILY RAMIRO Administration - Exam General - other findings: Tachypneic with BiPAP. Heart: RRR, no murmur, no gallops, no rubs, normal peripheral pulses Respiratory - other findings: Very diminished throughout all lung santiago. Mild rales at bases. Gastrointestinal: soft, non-tender, non-distended, normal bowel sounds, no palpable masses, no hepatomegaly, no splenomegaly, no bruit Extremities: no cyanosis, no clubbing, no edema Skin: normal turgor Neurological: no focal deficits Musculoskeletal: normal tone, normal strength, no muscle wasting Psychiatric - other findings: Calm during my visit. Hosp A/P (1) Acute respiratory failure with hypoxia Code(s): J96.01 - ACUTE RESPIRATORY FAILURE WITH HYPOXIA Status: Acute (2) Pneumonia due to COVID-19 virus Code(s): U07.1 - COVID-19; J12.82 - PNEUMONIA DUE TO CORONAVIRUS DISEASE 2019 Status: Acute (3) COPD (chronic obstructive pulmonary disease) Status: Acute Qualifiers: COPD type: COPD with acute exacerbation Qualified Code(s): J44.1 - Chronic obstructive pulmonary disease with (acute) exacerbation (4) Diabetes mellitus type 2 in nonobese Code(s): E11.9 - TYPE 2 DIABETES MELLITUS WITHOUT COMPLICATIONS Status: Chronic (5) Hypertension Code(s): I10 - ESSENTIAL (PRIMARY) HYPERTENSION Status: Chronic Qualifiers: Hypertension type: essential hypertension Qualified Code(s): I10 - Essential (primary) hypertension (6) Hyperlipidemia Code(s): E78.5 - HYPERLIPIDEMIA, UNSPECIFIED Status: Chronic Qualifiers: Hyperlipidemia type: unspecified Qualified Code(s): E78.5 - Hyperlipidemia, unspecified (7) BPH (benign prostatic hyperplasia) Code(s): N40.0 - BENIGN PROSTATIC HYPERPLASIA WITHOUT LOWER URINRY TRACT SYMP Status: Chronic Qualifiers: Lower urinary tract symptom presence: symptoms absent Qualified Code(s): N40.0 - Benign prostatic hyperplasia without lower urinary tract symptoms (8) Small cell lung cancer Code(s): C34.90 - MALIGNANT NEOPLASM OF UNSP PART OF UNSP BRONCHUS OR LUNG S tatus: Chronic - Plan Acute hypoxic respiratory failure: Secondary to underlying COVID-19 pneumonia and likely some COPD exacerbation. Patient had a CTA on 05/06/2020. At that time he was having similar shortness of breath although it has gotten worse. His findings were not impressive with respect to Covid findings. He does have extensive emphysematous changes. His lung cancer actually looked somewhat improved. Would have suspected more if the respiratory failure was all related to Covid. Treat all underlying possibilities. His D-dimer is elevated but his CTA was negative on the . Was able to briefly come off of the BiPAP but on 05/11/2020 he had to go back on the BiPAP due to hypoxia. Requiring some anxiolytics and at times soft wrist restraints to maintain the BiPAP. COVID-19 pneumonia: Suspect the patient's symptoms started about 5 days ago. Likely a candidate for remdesivir. We will discuss with ID. Decadron 6 mg IV daily. Vitamin D, vitamin C, zinc. With the elevated D-dimer we will give enhanced dosing of the Lovenox. Obtain inflammatory markers. COPD: Suspect a significant component of exacerbation given the limited findings on his CT scan of the chest on 05/06/2020. He will be receiving the Decadron. Continue with kay ying/Vivek. Continue home maintenance medications. Do not believe he has an indication for antibiotics for the Covid however will cover him due to the COPD exacerbation. Diabetes mellitus type 2: Diabetic diet Accu-Cheks with sliding scale insulin. Resume home medications. Hypertension: Resume home meds. Hyperlipidemia: Resume home medications. Small cell lung cancer: Believe the patient is on carboplatin and ORTHOTIC/PROSTHETIC PRACTITIONER. He is not neutropenic. Discussed with Eileen Cruz to make them aware the patient is here. BPH: Resume tamsulosin. DVT prophylaxis: Enhanced dosing of the Lovenox at 40 mg twice daily. PUD prophylaxis: Pantoprazole.
[2020-05-11] MEDS: Dexamethasone 6 MG in Sodium Chloride 0.9% 50 ML IVPB SCH (17:50)
[2020-05-11] MEDS: Atorvastatin Calcium 20 MG TAB PO SCH (21:13)
[2020-05-11] MEDS: rOPINIRole HCl 0.25 MG TAB PO SCH (21:13)
[2020-05-12] MEDS: Cefepime 1 GM in Sodium Chloride 0.9% 100 ML IVPB SCH ×2 (01:11→13:13)
[2020-05-12] MEDS: Lorazepam 2 MG/ML VIAL SLOW IVP PRN ×4 (02:18→14:57)
[2020-05-12] MEDS: HumaLOG 300 UNITS/3 ML VIAL SC PRN (06:03)
[2020-05-12] MEDS: Sodium Chloride 0.45% 1,000 ML IV SCH (06:21)
[2020-05-12] MEDS: Mometasone 200 MCG/Formoterol 5 MCG 120 PUFF INHALER INH SCH ×2 (06:21→17:25)
[2020-05-12] MEDS ORDERED: HumaLOG 300 UNITS/3 ML VIAL SC PRN (08:15)
[2020-05-12] MEDS ORDERED: Insulin Glargine 20 UNITS in Pre-Filled Syringe 1 EACH SC SCH (09:00)
[2020-05-12] MEDS ORDERED: Insulin Glargine 30 UNITS in Pre-Filled Syringe 1 EACH SC SCH (09:00)
[2020-05-12] MEDS: Carvedilol 3.125 MG TAB PO SCH ×2 (09:03→16:27)
[2020-05-12] MEDS: Potassium Chloride 10 MEQ TAB PO SCH (09:03)
[2020-05-12] MEDS: Ascorbic Acid 500 mg Chewable Tablet PO SCH (09:04)
[2020-05-12] MEDS: Gabapentin 300 MG CAP PO SCH ×2 (09:04→14:36)
[2020-05-12] MEDS: Aspirin 81 mg Enteric Coated Tablet PO SCH (09:04)
[2020-05-12] MEDS: Cholecalciferol 1,000 UNITS (25 MCG) TAB PO SCH (09:04)
[2020-05-12] MEDS: guaiFENesin/DM ER PO SCH (09:04)
[2020-05-12] MEDS: Zinc Sulfate 220 MG CAP PO SCH (09:05)
[2020-05-12] MEDS: Tamsulosin HCl 0.4 MG CAP PO SCH (09:05)
[2020-05-12] MEDS: Enoxaparin Sodium 40 MG/0.4 ML SYRINGE SC SCH (09:06)
--- NOTE | 2020-05-12 10:49 | PDOC.HOSPP ---
- Subjective Encounter Date: 05/12/20 Subjective: Patient is trying to talk at times. He tells me that he feels okay and does not need anything. Otherwise he becomes fairly difficult to understand with the BiPAP on. - Objective Vital Signs & Weight: Vital Signs (12 hours) Temp Pulse Resp BP Pulse Ox 05/12/20 09:47 95 05/12/20 05:57 78 26 H 112/60 92 L 05/12/20 03:44 97.4 F L 109 H 28 H 122/69 95 05/12/20 01:25 94 27 H 119/84 98 05/12/20 00:06 98.3 F 82 24 H 105/57 L 97 Weight Admit Weight 181 lb 11.2 oz Weight 181 lb 11.2 oz I&O: 05/11/20 05/12/20 05/13/20 06:59 06:59 06:59 Intake Total 1720 1200 Output Total 2675 225 Balance -955 975 Result Diagrams: 05/10/20 04:57 05/11/20 11:58 Additional Labs: Accuchecks 05/12/20 05/11/20 05/11/20 05:58 19:41 16:59 POC Glucose 406 H 258 H 341 H 05/11/20 11:05 POC Glucose 307 H Hospitalist ROS - Medication Medications: Active Medications Generic Name Dose Route Start Last Admin Trade Name Freq PRN Reason Stop Dose Admin Acetaminophen 650 mg 05/09/20 15:42 05/10/20 05:37 Acetaminophen 325 Mg Tab PO 650 mg Q4H PRN Administration Headache/Fever/Mild Pain (1-3) Ascorbic Acid 1,000 mg 05/10/20 09:00 05/12/20 09:04 Ascorbic Acid 500 Mg Chewable Tablet PO Not Given DAILY RAMIRO Aspirin 81 mg 05/10/20 09:00 05/12/20 09:04 Aspirin 81 Mg Enteric Coated Tablet PO Not Given DAILY RAMIRO Atorvastatin Calcium 20 mg 05/09/20 21:00 05/11/20 21:13 Atorvastatin Calcium 20 Mg Tab PO Not Given HS [facility] Carvedilol 3.125 mg 05/09/20 17:00 05/12/20 09:03 Carvedilol 3.125 Mg Tab PO Not Given BID-[facility] Cholecalciferol 1,000 units 05/10/20 09:00 05/12/20 09:04 Cholecalciferol 1,000 Units (25 Mcg) Tab PO Not Given DAILY RAMIRO Enoxaparin Sodium 40 mg 05/10/20 09:00 05/12/20 09:06 Enoxaparin Sodium 40 Mg/0.4 Ml Syringe SC Not Given 0900 RAMIRO Gabapentin 300 mg 05/09/20 21:00 05/12/20 09:04 Gabapentin 300 Mg Cap PO Not Given TID RAMIRO Guaifenesin/Dextromethorphan 2 tab 05/09/20 21:00 05/12/20 09:04 Guaifenesin/Dm Er PO Not Given Q12HR RAMIRO Dexamethasone 6 mg/ Sodium 50.6 mls @ 100 mls/hr 05/10/20 17:00 05/11/20 17:50 Chloride IVPB 50.6 mls 1700 RAMIRO Administration Cefepime HCl 1 gm/ Sodium 100 mls @ 200 mls/hr 05/10/20 01:00 05/12/20 01:11 Chloride IVPB 100 mls 0100,1300 RAMIRO Administration Sodium Chloride 1,000 mls @ 50 mls/hr 05/10/20 07:45 05/12/20 06:21 1/2 Normal Saline IV 1,000 mls .Q20H RAMIRO Administration Lorazepam 0.5 mg 05/11/20 09:40 05/11/20 09:54 Lorazepam 2 Mg/Ml Vial SLOW IVP 0.5 mg Q6H PRN Administration Anxiety/Agitation Lorazepam 2 mg 05/11/20 10:34 05/12/20 07:32 Lorazepam 2 Mg/Ml Vial SLOW IVP 2 mg Q4H PRN Administration Anxiety/Agitation Mometasone Furoate/Formoterol Fumar 0 puff 05/09/20 18:30 05/12/20 06:21 Mometasone 200 Mcg/Formoterol 5 Mcg 120 Puff Inhaler INH Not Given BID-RT RAMIRO Morphine Sulfate 2 mg 05/11/20 10:33 05/11/20 16:55 Morphine 2 Mg/Ml Vial SLOW IVP 2 mg Q1H PRN Administration dyspnea Ondansetron HCl 4 mg 05/10/20 15:00 05/10/20 21:38 Ondansetron Pf 4 Mg/2 Ml Vial IVP 4 mg Q6H PRN Administration Nausea/Vomiting Pantoprazole Sodium 40 mg 05/10/20 09:00 05/12/20 09:04 Pantoprazole 40 Mg Tab PO Not Given DAILY RAMIRO Potassium Chloride 10 meq 05/10/20 08:00 05/12/20 09:03 Potassium Chloride 10 Meq Tab PO Not Given QAM-WM RAMIRO Ropinirole HCl 0.25 mg 05/09/20 21:00 05/11/20 21:13 Ropinirole Hcl 0.25 Mg Tab PO Not Given HS RAMIRO Tamsulosin HCl 0.4 mg 05/10/20 09:00 05/12/20 09:05 Tamsulosin Hcl 0.4 Mg Cap PO Not Given DAILY RAMIRO Zinc Sulfate 220 mg 05/10/20 09:00 05/12/20 09:05 Zinc Sulfate 220 Mg Cap PO Not Given DAILY RAMIRO - Exam General Appearance: NAD, awake alert General - other findings: Fidgety at times Heart: RRR, no murmur, no gallops, no rubs, normal peripheral pulses Respiratory: no wheezes, no ronchi, rales (Scattered bilateral) Gastrointestinal: soft, non-tender, non-distended, normal bowel sounds, no palpable masses, no hepatomegaly, no splenomegaly, no bruit Extremities: no cyanosis, no clubbing, no edema Neurological: no focal deficits Musculoskeletal: generalized weakness Psychiatric - other findings: A little confused at times Hosp A/P (1) Acute respiratory failure with hypoxia Code(s): J96.01 - ACUTE RESPIRATORY FAILURE WITH HYPOXIA Status: Acute (2) Pneumonia due to COVID-19 virus Code(s): U07.1 - COVID-19; J12.82 - PNEUMONIA DUE TO CORONAVIRUS DISEASE 2019 Status: Acute (3) COPD (chronic obstructive pulmonary disease) Status: Acute Qualifiers: COPD type: COPD with acute exacerbation Qualified Code(s): J44.1 - Chronic obstructive pulmonary disease with (acute) exacerbation (4) Diabetes mellitus type 2 in nonobese Code(s): E11.9 - TYPE 2 DIABETES MELLITUS WITHOUT COMPLICATIONS Status: Chronic (5) Hypertension Code(s): I10 - ESSENTIAL (PRIMARY) HYPERTENSION Status: Chronic Qualifiers: Hypertension type: essential hypertension Qualified Code(s): I10 - Essential (primary) hypertension (6) Hyperlipidemia Code(s): E78.5 - HYPERLIPIDEMIA, UNSPECIFIED Status: Chronic Qualifiers: Hyperlipidemia type: unspecified Qualified Code(s): E78.5 - Hyperlipidemia, unspecified (7) BPH (benign prostatic hyperplasia) Code(s): N40.0 - BENIGN PROSTATIC HYPERPLASIA WITHOUT LOWER URINRY TRACT SYMP Status: Chronic Qualifiers: Lower urinary tract symptom presence: symptoms absent Qualified Code(s): N40.0 - Benign prostatic hyperplasia without lower urinary tract symptoms (8) Small cell lung cancer Code(s): C34.90 - MALIGNANT NEOPLASM OF UNSP PART OF UNSP BRONCHUS OR LUNG Status: Chronic (9) Acute metabolic encephalopathy Code(s): G93.41 - METABOLIC ENCEPHALOPATHY Status: Acute - Plan Acute hypoxic respiratory failure: Secondary to underlying COVID-19 pneumonia and likely some COPD exacerbation. Patient had a CTA on 05/06/2020. At that time he was having similar shortness of breath although it has gotten worse. His findings were not impressive with respect to Covid findings. He does have extensive emphysematous changes. His lung cancer actually looked somewhat improved. Would have suspected more if the respiratory failure was all related to Covid. Treat all underlying possibilities. His D-dimer is elevated but his CTA was negative on the . Was able to briefly come off of the BiPAP but on 05/11/2020 he had to go back on the BiPAP due to hypoxia. Requiring some anxiolytics and at times soft wrist restraints to maintain the BiPAP. 05/12/2020, patient was noted to have significant drops in his saturations if even momentarily removing the BiPAP. COVID-19 pneumonia: Suspect the patient's symptoms started about 5 days ago. We will discuss with ID. Decadron 6 mg IV daily. Vitamin D, vitamin C, zinc. With the elevated D-dimer we will give enhanced dosing of the Lovenox. Follow inflammatory markers. On 05/12/2020 the D-dimer and CRP continued to climb COPD: Suspect a significant component of exacerbation given the limited findings on his CT scan of the chest on 05/06/2020. He will be receiving the Decadron. Continue with duo nebs/MDIs. Continue home maintenance medications. Do not believe he has an indication for antibiotics for the Covid however will cover him due to the COPD exacerbation. Diabetes mellitus type 2: Diabetic diet Accu-Cheks with sliding scale insulin. Resume home medications. Hypertension: Resume home meds. Hyperlipidemia: Resume home medications. Small cell lung cancer: Believe the patient is on carboplatin and BOOKMA[employer] MAP. He is not neutropenic. Discussed with Eileen Cruz to make them aware the patient is here. BPH: Resume tamsulosin. DVT prophylaxis: Enhanced dosing of the Lovenox at 40 mg twice daily. PUD prophylaxis: Pantoprazole.
--- NOTE | 2020-05-12 11:11 | PDOC.EVN ---
Event Note - Event Note Event Note: Spoke with the patient's , Jovita. I explained that the patient is fighting an uphill benitez given the fact that he has the underlying lung cancer with severe COPD/emphysema and other Covid infection. His inflammatory markers continue to climb and he is extremely dependent on the BiPAP which he intermittently does not tolerate well. She made it clear that he did not want to live dependent on "machines". She believes he would rather go then to continue down this course if he is suffering. I reassured her that we have medications in place in order to try to alleviate any suffering. She understands that he is requiring wrist restraints at times. Ultimately I will consult palliative care and see if there is any way we can allow her to come see him in order to help make decisions regarding potential transition to hospice care.
[2020-05-12] MEDS ORDERED: Morphine 4 MG/ML VIAL SLOW IVP PRN (11:29)
--- NOTE | 2020-05-12 11:37 | PRG ---
DATE OF SERVICE: 05/12/2020 SUBJECTIVE: 79-year-old gentleman with small cell lung cancer, came in with respiratory failure. He is on BiPAP, but clearly unable to tolerate diet. OBJECTIVE: VITAL SIGNS: Temperature 97, pulse 95, saturations 92%, blood pressure 120/60. HEENT: He is encephalopathic. CHEST: No wheezing, no crackles. CARDIAC: Normal S1. ABDOMEN: No masses. C-reactive protein was 9. X-ray shows minimal infiltrates in the left base. ASSESSMENT: Colon positive pneumonia, respiratory failure, chronic obstructive pulmonary disease, lung cancer. I agree with the DNR status, is not going to do well. I agree with empiric antibiotics, Lovenox and Decadron. His prognosis is grave. I had spoke with respiratory to try high-flow. Job ID: [id number]
[2020-05-12] MEDS: Morphine 2 MG/ML VIAL SLOW IVP PRN (13:13)
[2020-05-12 15:16] VITALS: TEMP 97.5
--- NOTE | 2020-05-12 15:46 | PDOC.FMACP ---
Advance Care Planning - Problem (1) Palliative care encounter Status: Acute Code(s): Z51.5 - ENCOUNTER FOR PALLIATIVE CARE (2) Acute metabolic encephalopathy Status: Acute Code(s): G93.41 - METABOLIC ENCEPHALOPATHY (3) Acute respiratory failure with hypoxia Status: Acute Code(s): J96.01 - ACUTE RESPIRATORY FAILURE WITH HYPOXIA (4) COPD (chronic obstructive pulmonary disease) Status: Acute Qualifiers: COPD type: COPD with acute exacerbation Qualified Code(s): J44.1 - Chronic obstructive pulmonary disease with (acute) exacerbation (5) Pneumonia due to COVID-19 virus Status: Acute Code(s): U07.1 - COVID-19; J12.82 - PNEUMONIA DUE TO CORONAVIRUS DISEASE 2019 (6) Diabetes mellitus type 2 in nonobese Status: Chronic Code(s): E11.9 - TYPE 2 DIABETES MELLITUS WITHOUT COMPLICATIONS (7) Hyperlipidemia Status: Chronic Code(s): E78.5 - HYPERLIPIDEMIA, UNSPECIFIED Qualifiers: Hyperlipidemia type: unspecified Qualified Code(s): E78.5 - Hyperlipidemia, unspecified (8) Hypertension Status: Chronic Code(s): I10 - ESSENTIAL (PRIMARY) HYPERTENSION Qualifiers: Hypertension type: essential hypertension Qualified Code(s): I10 - Essential (primary) hypertension - Note Participants: family, palliative care Summary: Palliative care addressed Advanced Care Planning with patient spouse as Mr Hardy was lethargic with encephalopathy. The diagnosis, prognosis and goals of care were discussed. All questions were answered. Mrs Hardy was able to see and sit with her spouse. Confirmed DNAR status. Short life review, he has 5 children, she has two each from previous marriages. Several grandchildren. *She relayed that "He did not ever want to be on machines" *She relayed understanding of his poor prognosis. *Elected to transition to Hospice, will seek inpatient Hospice *Communicated with Dr Torres Discussed option with [facility] for the 5 children to come visit. Not able to secondary to patient being Covid + and risk of exposure. Relayed to patient and daughter Wendy. Tayo aware, sent referral to Bruno with [facility], to admit this evening. Time Spent (mins): 45
[2020-05-12] MEDS: Dexamethasone 6 MG in Sodium Chloride 0.9% 50 ML IVPB SCH (17:25)
--- NOTE | 2020-05-12 17:36 | PDOC.DS.DS ---
Provider - Provider Date of Admission: 05/09/20 13:44 Date of Discharge: 05/12/20 Admitting Provider: Jesse Torres MD Consultations: Pulmonary Primary Care Physician: Unknown Course - Hospital Course Hospital Course: Patient is a 79-year-old male with a history of significant COPD and a relatively recent diagnosis of lung cancer. Patient had initiated lung cancer therapy. He subsequently had worsening shortness of breath and presented to the emergency department where he was found to have COVID-19 pneumonia. Acute hypoxic respiratory failure: Secondary to underlying COVID-19 pneumonia and likely some COPD exacerbation. Patient had a CTA on 05/06/2020. At that time he was having similar shortness of breath although it has gotten worse. His findings were not impressive with respect to Covid findings. He does have extensive emphysematous changes. His lung cancer actually looked somewhat improved. Would have suspected more if the respiratory failure was all related to Covid. Treat all underlying possibilities. His D-dimer is elevated but his CTA was negative on the . Was able to briefly come off of the BiPAP but on 05/11/2020 he had to go back on the BiPAP due to hypoxia. Requiring some anxiolytics and at times soft wrist restraints to maintain the BiPAP. 05/12/2020, patient was noted to have significant drops in his saturations if even momentarily removing the BiPAP. Pulmonology transition the patient to high flow nasal cannula and his O2 sats were around 85%. COVID-19 pneumonia: Suspect the patient's symptoms started about 5 days ago. We will discuss with ID. Decadron 6 mg IV daily. Vitamin D, vitamin C, zinc. With the elevated D-dimer we will give enhanced dosing of the Lovenox. Follow inflammatory markers. On 05/12/2020 the D-dimer and CRP continued to climb COPD: Suspect a significant component of exacerbation given the limited findings on his CT scan of the chest on 05/06/2020. He will be receiving the Decadron. Continue with kay ying/Vivek. Continue home maintenance medications. Did not believe he has an indication for antibiotics for the Covid, however, he was covered with antibiotics due to the COPD exacerbation. Diabetes mellitus type 2: Diabetic diet Accu-Cheks with sliding scale insulin. Resumed home medications. Hypertension: Resume home meds. Hyperlipidemia: Resume home medications. Small cell lung cancer: Believe the patient is on carboplatin and FIELD ATTENDANT. He is not neutropenic. Discussed with Eileen Cruz to make them aware the patient is here. BPH: Resume tamsulosin. Disposition: The patient continued to require substantial amounts of oxygen support. He was very dependent on these and dropped his oxygen saturations promptly if these were removed even momentarily. After long discussion with the patient's on the telephone and she had concerns that this might not be the direction that the patient would want to pursue as he did not ever wish to be dependent on machines even in this type of setting. We arrange for her to be able to come to the hospital and get screened so that she could visit with him. After doing so and meeting with the palliative care team she made the decision to pursue hospice. He was evaluated by [facility] and will be transition to their service on an inpatient basis. Resuscitation Status: 05/09/20 21:26 Resuscitation Status Routine Co-Sign Provider: Resuscitation Status: DNAR: NO Resuscitation Discussed with: patient Additional comments: Paperwork signed by patient and in chart. - Labs Lab Results: 05/10/20 04:57 05/11/20 11:58 Abnormal Lab Results - Last 48 hrs 05/11/20 11:58: Carbon Dioxide 21 L, BUN 43 H, Creatinine 1.72 H 05/11/20 11:58: C-Reactive Protein 5.55 H 05/11/20 11:58: Ferritin 2845.76 H 05/11/20 11:58: D-Dimer 5.96 H 05/12/20 04:54: C-Reactive Protein 8.30 H 05/12/20 04:54: Ferritin 2637.71 H 05/12/20 04:54: D-Dimer 12.41 H Microbiology - Entire Visit 05/09/20 12:32 Venous blood - Left Arm Blood Culture - Preliminary NO GROWTH AT 48 HOURS 05/09/20 12:28 Venous blood - Left Arm Blood Culture - Preliminary NO GROWTH AT 48 HOURS - Physical Exam Vitals: Vital Signs (12 hours) Temp Pulse Resp BP Pulse Ox 05/12/20 16:37 94 L 05/12/20 15:14 97.5 F L 91 24 H 103/67 99 05/12/20 14:00 93 104/60 97 05/12/20 11:26 97.4 F L 95 24 H 124/65 85 L 05/12/20 10:00 93 120/71 99 05/12/20 09:47 95 05/12/20 07:44 97.8 F 96 21 H 128/80 97 05/12/20 05:57 78 26 H 112/60 92 L Weight Admit Weight 181 lb 11.2 oz Weight 181 lb 11.2 oz Physical Exam: The patient was seen and examined on the day of discharge. Problem - Problem (1) Acute respiratory failure with hypoxia Code(s): J96.01 - ACUTE RESPIRATORY FAILURE WITH HYPOXIA Status: Acute (2) Pneumonia due to COVID-19 virus Code(s): U07.1 - COVID-19; J12.82 - PNEUMONIA DUE TO CORONAVIRUS DISEASE 2019 Status: Acute (3) COPD (chronic obstructive pulmonary disease) Status: Acute Qualifiers: COPD type: COPD with acute exacerbation Qualified Code(s): J44.1 - Chronic obstructive pulmonary disease with (acute) exacerbation (4) Diabetes mellitus type 2 in nonobese Code(s): E11.9 - TYPE 2 DIABETES MELLITUS WITHOUT COMPLICATIONS Status: Chronic (5) Hypertension Code(s): I10 - ESSENTIAL (PRIMARY) HYPERTENSION Status: Chronic Qualifiers: Hypertension type: essential hypertension Qualified Code(s): I10 - Essential (primary) hypertension (6) Hyperlipidemia Code(s): E78.5 - HYPERLIPIDEMIA, UNSPECIFIED Status: Chronic Qualifiers: Hyperlipidemia type: unspecified Qualified Code(s): E78.5 - Hyperlipidemia, unspecified (7) BPH (benign prostatic hyperplasia) Code(s): N40.0 - BENIGN PROSTATIC HYPERPLASIA WITHOUT LOWER URINRY TRACT SYMP Status: Chronic Qualifiers: Lower urinary tract symptom presence: symptoms absent Qualified Code(s): N40.0 - Benign prostatic hyperplasia without lower urinary tract symptoms (8) Small cell lung cancer Code(s): C34.90 - MALIGNANT NEOPLASM OF UNSP PART OF UNSP BRONCHUS OR LUNG Status: Chronic (9) Acute metabolic encephalopathy Code(s): G93.41 - METABOLIC ENCEPHALOPATHY Status: Acute Plan - Discharge Medications Home Medications: Medication Instructions Recorded Confirmed Type Aspirin [Ecotrin Low Strength] 81 mg PO DAILY 03/27/20 05/09/20 History Budesonide/Formoterol Fumarate 2 puff IH BID 03/27/20 05/09/20 History [Budesonide-Formoterol 160-4.5] Dicyclomine [Bentyl] 20 mg PO DAILY 03/27/20 05/09/20 History Famotidine [Pepcid] 20 mg PO BID 03/27/20 05/09/20 History Gabapentin 300 mg PO AC 03/27/20 05/09/20 History Gabapentin 600 mg PO HS 03/27/20 05/09/20 History Ipratropium/Albuterol Sulfate 3 ml NEB QID 03/27/20 05/09/20 History [DuoNeb] Levocetirizine Dihydrochloride 5 mg PO HS 03/27/20 05/09/20 History Meloxicam [Mobic] 15 mg PO DAILY 03/27/20 05/09/20 History Omeprazole 40 mg PO DAILY 03/27/20 05/09/20 History Potassium Chloride [Klor-Con 10] 10 meq PO DAILY 03/27/20 05/09/20 History Tamsulosin HCl [Flomax] 0.8 mg PO DAILY 03/27/20 05/09/20 History Torsemide 20 mg PO DAILY 03/27/20 05/09/20 History guaiFENesin/DM ER [Mucinex DM] 1 tab PO BID 03/27/20 05/09/20 History rOPINIRole HCl [Requip] 0.25 mg PO HS 03/27/20 05/09/20 History traMADol HCl [Tramadol HCl] 50 mg PO Q6HR PRN 03/27/20 05/09/20 History traZODone HCl [Trazodone HCl] 50 mg PO HS PRN 03/27/20 05/09/20 History NPH, Human Insulin Isophane 25 unit SC BID #0 04/03/20 05/09/20 Rx [HumuLIN N] Allergies: No Known Allergies Allergy (Verified 05/09/20 22:11) - Discharge Instructions Activity:: Activity as Tolerated Nourishment:: No Restrictions - Follow up Plan Referrals: Unknown,Unknown [Primary Care Provider] - Disposition: [facility] Quality - Care Measures CORE MEASURES:: N/A
[2020-05-12 17:58] VITALS: BP 80/43
--- NOTE | 2020-05-28 22:49 | EKG ---
Test Reason : Blood Pressure : / mmHG Vent. Rate : 138 BPM Atrial Rate : 138 BPM P-R Int : 140 ms QRS Dur : 096 ms QT Int : 376 ms P-R-T Axes : 068 042 027 degrees QTc Int : 569 ms Sinus tachycardia with occasional Premature ventricular complexes Inferior infarct , age undetermined Abnormal ECG Confirmed by MAREILOS SOFIA, RIAN ([id number]), news video editor KRISTIE REDMOND ([id number]) on 05/28/2020 10:49:35 PM Referred By: Confirmed By:RIAN ARCEO MD
== END 2020-05-12 17:46 | disposition hospice, inpatient (51) | DRG 177 ==
LOC: ERS 11:34 → ERHOLD 13:44 → 2SE 17:39
PROVIDERS: ADMIT Internal Medicine; ATTEND Internal Medicine
PROC: 8E0ZXY6 Isolation (ICD-10-PCS; principal; 2020-05-09)
PROC: 5A09457 Assistance with Respiratory Ventilation, 24-96 Consecutive Hours, Continuous Positive Airway Pressure (ICD-10-PCS; 2020-05-09)
DX: U07.1 COVID-19 (principal); J12.82 Pneumonia due to coronavirus disease 2019; J96.01 Acute respiratory failure with hypoxia; G93.41 Metabolic encephalopathy; C34.90 Malignant neoplasm of unspecified part of unspecified bronchus or lung; N17.9 Acute kidney failure, unspecified; D61.818 Other pancytopenia; Z51.5 Encounter for palliative care; Z66 Do not resuscitate; M19.90 Unspecified osteoarthritis, unspecified site; I50.9 Heart failure, unspecified; J43.9 Emphysema, unspecified; E11.40 Type 2 diabetes mellitus with diabetic neuropathy, unspecified; F41.9 Anxiety disorder, unspecified; Z96.652 Presence of left artificial knee joint; E78.5 Hyperlipidemia, unspecified; N40.0 Benign prostatic hyperplasia without lower urinary tract symptoms; Z79.4 Long term (current) use of insulin; Z79.82 Long term (current) use of aspirin; Z79.899 Other long term (current) drug therapy; Z79.51 Long term (current) use of inhaled steroids; Z95.1 Presence of aortocoronary bypass graft; Z87.891 Personal history of nicotine dependence; I25.2 Old myocardial infarction; I11.0 Hypertensive heart disease with heart failure
CPT/HCPCS: 0240U; 36415; 36416; 71045; 71275; 80048; 80053; 81003; 81015; 82550; 82728; 83605; 83690; 83880; 84484; 85025; 85060; 85379; 86140; 87040; 93005; 94660; 94760; 96365; 96366; 96367; 96375; J0692; J1100; J1815; J2060; J2270; J2405; J3370; J3475; J3490; Q9967

== ENCOUNTER 2020-05-12 17:59 | Inpatient (IN) | payer MEDICARE, OTHER ==
[2020-05-12] MEDS ORDERED: Morphine 4 MG/ML VIAL SLOW IVP PRN (18:49)
[2020-05-12] MEDS ORDERED: diphenhydrAMINE 50 MG/ML VIAL IVP PRN (18:50)
[2020-05-12] MEDS ORDERED: Ondansetron PF 4 MG/2 ML Vial IVP PRN (18:50)
[2020-05-12] MEDS ORDERED: Lorazepam 2 MG/ML VIAL SLOW IVP PRN (18:51)
[2020-05-12] MEDS ORDERED: Scopolamine 1.5 mg/72 hour Patch TOP SCH (19:00)
[2020-05-12] MEDS: Lorazepam 2 MG/ML VIAL SLOW IVP SCH ×2 (19:20→21:53)
[2020-05-12] MEDS: Morphine 4 MG/ML VIAL SLOW IVP SCH ×2 (19:21→21:46)
[2020-05-13] MEDS: Lorazepam 2 MG/ML VIAL SLOW IVP SCH ×12 (02:17→22:31)
[2020-05-13] MEDS: Morphine 4 MG/ML VIAL SLOW IVP SCH ×12 (02:18→22:32)
[2020-05-13 20:29] VITALS: BP 94/59; TEMP 99
[2020-05-14] MEDS: Lorazepam 2 MG/ML VIAL SLOW IVP SCH ×3 (00:39→04:29)
[2020-05-14] MEDS: Morphine 4 MG/ML VIAL SLOW IVP SCH ×3 (00:39→04:29)
== END 2020-05-14 07:25 | disposition expired | DRG 951 ==
LOC: 2SE 17:59
PROVIDERS: ADMIT Family Medicine; ATTEND Family Medicine
DX: Z51.5 Encounter for palliative care (principal); J96.01 Acute respiratory failure with hypoxia; J12.82 Pneumonia due to coronavirus disease 2019; U07.1 COVID-19; C34.90 Malignant neoplasm of unspecified part of unspecified bronchus or lung; Z66 Do not resuscitate; I25.10 Atherosclerotic heart disease of native coronary artery without angina pectoris; I11.0 Hypertensive heart disease with heart failure; Z96.652 Presence of left artificial knee joint; E11.9 Type 2 diabetes mellitus without complications; E78.5 Hyperlipidemia, unspecified; J43.9 Emphysema, unspecified; M19.90 Unspecified osteoarthritis, unspecified site; Z79.4 Long term (current) use of insulin; Z79.82 Long term (current) use of aspirin; Z79.899 Other long term (current) drug therapy; Z79.51 Long term (current) use of inhaled steroids; I25.2 Old myocardial infarction; Z95.1 Presence of aortocoronary bypass graft; Z87.891 Personal history of nicotine dependence
CPT/HCPCS: J2060; J2270